=== PATIENT | male | born 1960 | race Caucasian/White ===

== ENCOUNTER 2019-11-29 13:40 | Emergency (ER) | payer OTHER, SELFPAY ==
[2019-11-29 13:45] VITALS: BP 135/86; PULSE 100; RESP 18; TEMP 37.1; O2SAT 95; BMI 37.5
--- NOTE | 2019-11-29 13:53 | XRR_ITS ---
PROCEDURE INFORMATION: Exam: XR Chest, 2 Views Exam date and time: 11/29/2019 2:52 PM Age: 59 years old Clinical indication: Cough; Prior surgery; Surgery type: Gallbladder TECHNIQUE: Imaging protocol: XR of the chest Views: 2 views. COMPARISON: CR Chest 1 [place] [id number] 08/08/2017 7:27 PM FINDINGS: Lungs: There is no pulmonary vascular congestion. There is no evidence of focal parenchymal consolidation. Pleural space: There are no pleural effusions. There is no evidence of pneumothorax. Heart/Mediastinum: The cardiac silhouette is within normal limits. Bones/joints: No acute osseous abnormality is identified. XR/XR chest 2V* [id number] IMPRESSION: No acute cardiopulmonary disease identified.
--- NOTE | 2019-11-29 13:56 | W.ED.GENADLT ---
HPI - General Adult General: Chief complaint: General Medical Stated complaint: told sinus inf mon/got worse since Time Seen by Provider: 11/29/19 13:44 Source: patient Mode of arrival: ambulatory Limitations: no limitations History of Present Illness: HPI narrative: 59-year-old male who states he has had a cough along with wheezing and sinus drainage and body aches over the last week that is gotten worse the last 2 days. Patient states he saw his PCP 2 days ago and started on amoxicillin for sinus infection. He states he does not feel any better. He has had no fevers. He does not smoke and has no history of COPD but does have wheezing here. Denies any vomiting or diarrhea. Associated symptoms: Deny chest pain, headache(s), nausea, rash or vomiting Review of Systems Const: Reports: chills and body aches; Denies: fever(s) Eyes: Denies: blurry vision or eye discomfort ENMT: Reports: nasal congestion Card: Denies: chest pain Resp: Reports: non-productive cough and wheezing GI: Denies: abdominal pain, nausea, vomiting or diarrhea : Denies: dysuria Musc: Denies: neck pain or back pain Skin/Breast: Denies: rash Neuro: Denies: headache(s) Psych: Denies: depression Owen/Lymph: Denies: easy bruising All/Imm: Denies: urticaria Physical Exam Const: COMMON NORMALS: no acute distress, patient oriented x3 and healthy appearing HENMT: COMMON NORMALS: normocephalic and atraumatic HEAD & SCALP: normocephalic and atraumatic Eye: COMMON NORMALS: Equal, round and reactive pupils present and EOMs intact bilaterally PUPIL: Yes Equal, round and reactive pupils present Neck/C-Spine: COMMON NORMALS: full ROM and supple Chest: COMMONS NORMALS: normal inspection of the chest and normal palpation of entire chest wall Resp: COMMON NORMALS: normal respiratory effort, No retractions, No use of accessory muscles and clear to auscultation bilaterally AUSCULTATION: clear to auscultation bilaterally and wheezes Cardio: COMMON NORMALS: regular rate, regular rhythm and No murmurs present (Cardio) RATE: regular rate RHYTHM: regular rhythm GI: COMMON NORMALS: Normal to inspection, nondistended, normoactive bowel sounds present, Soft to palpation, non-tender and no masses PALPATION: Yes Soft to palpation Extremity: COMMON NORMALS: normal to inspection and full ROM Neuro: COMMON NORMALS: patient oriented x3, moves all extremities and no focal motor deficits Psych: COMMON NORMALS: mental status grossly normal, Normal thought process present and cooperative THOUGHT PROCESS: Normal thought process present Skin: COMMON NORMALS: no rashes or lesions noted and no wounds GENERAL SKIN EXAM: no rashes or lesions noted Course Vital Signs: Vital signs: Vital Signs Temperature 98.7 F 11/29/19 13:45 Pulse Rate 105 H 11/29/19 15:10 Respiratory Rate 18 11/29/19 15:10 Blood Pressure 135/86 11/29/19 13:45 Pulse Oximetry 92 11/29/19 15:10 MDM - General Adult MDM Narrative: Medical decision making narrative: 59-year-old male who presents here with bronchitis. His wheezing improved after albuterol. Patient's x-ray showed no pneumonia his lab work here is normal. Patient is not requiring any oxygen. We will start him on albuterol along with steroids and he is to continue his Amoxil. Will test for coronavirus as well. Patient is to quarantine until results. He is return if worsening. He has no signs of cardiac cause or pulmonary embolism. Lab Data: Labs: Lab Results 11/29/19 11/29/19 Range/Units 14:18 14:18 WBC 13.0 H (4.0-10.0) 10^3/ uL RBC 5.81 H (4.1-5.3) 10^6/u L Hgb 16.6 (11.7-16.6) g/dL Hct 51.7 (42.0-52.0) % MCV 89.0 (80-94) fL MCH 28.6 (28.0-34.0) pg MCHC 32.1 (30.0-36.0) g/dL RDW 13.1 (12.1-15.1) % Plt Count 329 (130-400) 10^3/c mm MPV 10.7 H (7.4-10.4) fL Neut % (Auto) 83.3 % Lymph % (Auto) 9.1 % Dukes % (Auto) 4.8 % Eos % (Auto) 1.7 % Baso % (Auto) 0.5 % Neut # (Auto) 10.87 H (1.8-7.7) 10^3/u L Lymph # (Auto) 1.2 (0.8-4.8) 10^3/u L Dukes # (Auto) 0.6 (0.2-0.9) 10^3/u L Eos # (Auto) 0.2 (0.0-0.8) 10^3/u L Baso # (Auto) 0.1 (0.0-0.1) 10^3/u L Nucleated RBC % (a uto) 0 % Nucleated RBCs # 0.0 /100WBC Sodium 131 L (136-145) mmol/L Potassium 4.4 (3.5-5.1) mmol/L Chloride 98 (98-107) mmol/L Carbon Dioxide 22 (22-29) mmol/L Anion Gap 15.4 (5-19) BUN 26 H (8-23) mg/dL Creatinine 1.4 H (0.7-1.2) mg/dL GFR Calculation 51.5 L (90-130) mL/min Glucose 264 H (65-115) mg/dL Calculated Osmolal ity 278 L (285-295) mOsm/k g Calcium 9.5 (8.5-10.5) mg/dL Total Bilirubin 0.5 (0.15-1.2) mg/dL AST 15 (0-40) U/L ALT 18 (0-41) U/L Alkaline Phosphata se 123 (40-130) IU/L Total Protein 7.5 (6.6-8.7) g/dL Albumin 3.7 (3.5-5.2) g/dL Globulin 3.8 (1.3-4.6) g/dL Imaging Data^: CXR: Attestation: I personally reviewed and interpreted this imaging study as follows: My impression: no acute abnormality Discharge Plan Discharge Patient Disposition: Home Clinical Impression: Bronchitis Condition: Stable Prescriptions: New prednisone 50 mg tablet 50 mg PO DAILY Qty: 5 RF: 0 Discharge Orders: Discharge Order (Routine); Ordered 11/29/19 Ordered By: Madhuri Yancey Referrals: Meggan Carey FNP [Primary Care Provider] - 1-3 days Discharge Diet: Advance as tolerated Discharge Activity: Resume usual activity Patient Instructions: Acute Bronchitis (ED) Coding Level of Care Code ED [employer] for Chg Fwd Exam Comprehensive
[2019-11-29 14:24] LABS: Basophils # 0.1 10^3/uL (0.0-0.1); Basophils % 0.5 %; Eosinophils # 0.2 10^3/uL (0.0-0.8); Eosinophils % 1.7 %; Hematocrit 51.7 % (42.0-52.0); Hemoglobin 16.6 g/dL (11.7-16.6); Lymphocytes # 1.2 10^3/uL (0.8-4.8); Lymphocytes % 9.1 %; Mean Corpuscular HGB Conc 32.1 g/dL (30.0-36.0); Mean Corpuscular Hemoglobin 28.6 pg (28.0-34.0); Mean Platelet Volume 10.7 fL (7.4-10.4); Monocytes # 0.6 10^3/uL (0.2-0.9); Monocytes % 4.8 %; Neutrophils # 10.87 10^3/uL (1.8-7.7); Neutrophils % 83.3 %; Nucleated Red Blood Cells % 0 %; Platelet Count 329 10^3/cmm (130-400); Red Blood Count 5.81 10^6/uL (4.1-5.3); Red Cell Distribution Width 13.1 % (12.1-15.1)
[2019-11-29 14:44] LABS: Alanine Aminotransferase 18 U/L (0-41); Albumin Level 3.7 g/dL (3.5-5.2); Alkaline Phosphatase 123 IU/L (40-130); Anion Gap 15.4 (5-19); Aspartate Amino Transferase 15 U/L (0-40); Blood Urea Nitrogen 26 mg/dL (8-23); Calcium 9.5 mg/dL (8.5-10.5); Carbon Dioxide 22 mmol/L (22-29); Chloride 98 mmol/L (98-107); Globulin 3.8 g/dL (1.3-4.6); Glomerular Filtration Rate 51.5 mL/min (90-130); Glucose 264 mg/dL (65-115); Osmolality Calculated 278 mOsm/kg (285-295); Potassium 4.4 mmol/L (3.5-5.1); Sodium 131 mmol/L (136-145); Total Bilirubin 0.5 mg/dL (0.15-1.2); Total Protein 7.5 g/dL (6.6-8.7)
[2019-11-29] MEDS: sodium chloride 0.9% 1,000 ML 999 ML IV (14:55)
[2019-11-29 15:10] VITALS: PULSE 105; RESP 18; O2SAT 92
[2019-11-29 16:20] VITALS: BP 148/89; PULSE 74; RESP 17; O2SAT 98
[2019-11-29 16:21] VITALS: BP 148/89; PULSE 74; RESP 17; O2SAT 98
--- NOTE | 2019-11-30 15:28 | PC.NURSE ---
QUEST CALLED WITH POSITIVE COVID RESULT ATTEMPTED TO CALL PT NO ANSWER AND UNABLE TO LEAVE MESSAGE WILL CALL AGAIN LATER
[2019-11-30 15:39] LABS: Quest SARS-CoV-2 RNA DETECTED (NOT DETECTED)
== END 2019-11-29 16:24 | disposition home or self-care (01) ==
PROVIDERS: Emergency Provider Emergency Medicine; PCP Nurse Practitioner
DX: J40 Bronchitis, not specified as acute or chronic (principal); U07.1 COVID-19
CPT/HCPCS: 12345; 36415; 71046; 80053; 85025; 87635; 94640; 96361; 96374; 96375; 99282; 99284; J2930; J3535; J7030

== ENCOUNTER → 2019-12-17 09:26 | Outpatient (BNVA) | payer OTHER, SELFPAY | PROVIDERS: PCP Nurse Practitioner; Visit Provider Nurse Practitioner Family | DX: U07.1 COVID-19 (principal); R06.02 Shortness of breath | CPT/HCPCS: 71046; 80053; 83036; 85025 ==

== ENCOUNTER 2020-04-21 10:10 | Outpatient (CLI) | payer OTHER, SELFPAY ==
[2020-04-21 11:17] LABS: Chol HDL Ratio 5.11 mg/dL (1.0-5.00); Cholesterol 194 mg/dL (0-200); HDL Cholesterol 38 mg/dL (60-100); LDL Cholesterol Calculated 115 mg/dL (50-129); LDL HDL Ratio 3.03 RATIO (0.00-3.22); Thyroid Stimulating Hormone 4.18 uIU/mL (0.27-4.20); Triglycerides 207 mg/dL (0-150); Vitamin B12 684 pg/mL (232-1245)
[2020-04-21 12:22] LABS: Estmated Average Glucose 237; Hemoglobin A1C 9.9 % (4.0-6.0)
[2020-04-21 14:47] LABS: Free T4 Free Thyroxine 1.16 ng/dL (0.82-1.77)
== END 2020-04-21 10:11 | disposition home or self-care (01) ==
PROVIDERS: PCP Nurse Practitioner; Visit Provider Internal Medicine
DX: E03.9 Hypothyroidism, unspecified (principal); E04.1 Nontoxic single thyroid nodule; E11.40 Type 2 diabetes mellitus with diabetic neuropathy, unspecified; E11.65 Type 2 diabetes mellitus with hyperglycemia; E78.5 Hyperlipidemia, unspecified
CPT/HCPCS: 80061; 82607; 83036; 84439; 84443; 99204

== ENCOUNTER 2020-05-05 07:05 | Outpatient (CLI) | payer OTHER, SELFPAY ==
--- NOTE | 2020-05-05 07:15 | US_ITS ---
WS: [id number] ULTRASOUND THYROID TECHNIQUE: Ultrasound of the thyroid. CLINICAL INFORMATION: thyroid nodule COMPARISON: None. FINDINGS: Thyroid: Right and left thyroid lobes are normal in size and echotexture. Small focus of shadowing ca lcification left mid thyroid. Solid ovoid nodule right thyroid measuring 10 x 10 x 9 mm. Right thyroid lobe: 4.5 cm x 1.6 cm x 1.6 cm Left thyroid lobe: 3.4 cm x 1.7 cm x 1.7 cm. Isthmus: 0.2 mm. Cervical lymphadenopathy: None. US/US thyroid [id number] IMPRESSION: 1. Solid ovoid nodule right thyroid measuring 10 x 10 x 9 mm. This can be furt her evaluated with FNA versus 12 month follow-up. 2. Small focus of shadowing calcification left thyroid. No other left thyroid nodules.
== END 2020-05-05 07:06 | disposition home or self-care (01) ==
LOC: US 07:06
PROVIDERS: PCP Nurse Practitioner Family; Visit Provider Internal Medicine
DX: E04.1 Nontoxic single thyroid nodule (principal)
CPT/HCPCS: 76536

== ENCOUNTER → 2021-03-02 13:40 | Outpatient (BNVA) | payer OTHER, SELFPAY | PROVIDERS: PCP Nurse Practitioner Family; Visit Provider Internal Medicine | DX: E11.40 Type 2 diabetes mellitus with diabetic neuropathy, unspecified (principal); E11.65 Type 2 diabetes mellitus with hyperglycemia; E04.1 Nontoxic single thyroid nodule; E78.5 Hyperlipidemia, unspecified; E03.9 Hypothyroidism, unspecified; Z79.4 Long term (current) use of insulin | CPT/HCPCS: 99214 ==

== ENCOUNTER → 2021-10-15 12:46 | Outpatient (BNVA) | payer OTHER, SELFPAY | PROVIDERS: PCP Nurse Practitioner Family; Visit Provider Clinical Nurse Specialist Adult Health | DX: E11.8 Type 2 diabetes mellitus with unspecified complications (principal); E78.5 Hyperlipidemia, unspecified; E03.9 Hypothyroidism, unspecified; M10.9 Gout, unspecified; M54.9 Dorsalgia, unspecified | CPT/HCPCS: 80053; 80061; 81000; 83036; 84443; 84550; 85025 ==

== ENCOUNTER → 2021-10-21 18:04 | Outpatient (BNVA) | payer OTHER, SELFPAY | PROVIDERS: PCP Nurse Practitioner Family; Visit Provider Family Medicine | DX: M25.522 Pain in left elbow (principal); W19.XXXA Unspecified fall, initial encounter; L03.114 Cellulitis of left upper limb | CPT/HCPCS: 73070 ==

== ENCOUNTER 2021-12-17 06:41 | Outpatient (CLI) | payer OTHER, SELFPAY ==
--- NOTE | 2021-12-17 07:15 | US_ITS ---
WS: [id number] ULTRASOUND THYROID TECHNIQUE: Ultrasound of the thyroid. CLINICAL INFORMATION: thyroid nodule COMPARISON: May 05, 2020 FINDINGS: Thyroid: Right and left thyroid lobes are normal in size and echotexture. No significant changes toda y in the previously described nodules. Right thyroid lobe: 4.1 cm x 1.8 cm x 2.0 cm Left thyroid lobe: 4.3 cm x 1.7 cm x 1.9 cm. Isthmus: 0.5 mm. Cervical lymphadenopathy: None. US/US thyroid [id number] IMPRESSION: 1. Stable RIGHT solid isoechoic inferior thyroid nodule with hypoechoic rim me asuring 1.1 x 1.0 x 1.0 cm. This is unchanged from previous. Recommend 12 month follow-up versus FNA. 2. Shadowing peripherally calcified nodule mid to inferior thyroid just above the above-described nodule measuring 1.2 x 0.8 x 0.8 cm not well seen previousl y due to shadowing but appears stable. 3. 2 tiny foci of shadowing calcification LEFT thyroid are stable.
== END 2021-12-17 06:42 | disposition home or self-care (01) ==
PROVIDERS: PCP Clinical Nurse Specialist Adult Health; Visit Provider Internal Medicine
DX: E04.1 Nontoxic single thyroid nodule (principal)
CPT/HCPCS: 76536; 84154

== ENCOUNTER → 2022-04-08 10:38 | Outpatient (BNVA) | payer OTHER, SELFPAY | PROVIDERS: PCP Clinical Nurse Specialist Adult Health; Visit Provider Clinical Nurse Specialist Adult Health | DX: E11.40 Type 2 diabetes mellitus with diabetic neuropathy, unspecified (principal); E11.65 Type 2 diabetes mellitus with hyperglycemia; E04.1 Nontoxic single thyroid nodule; E78.5 Hyperlipidemia, unspecified | CPT/HCPCS: 80053; 80061; 83036; 84439; 84443 ==

== ENCOUNTER → 2022-11-11 08:45 | Outpatient (BNVA) | payer OTHER, SELFPAY | PROVIDERS: PCP Clinical Nurse Specialist Adult Health; Visit Provider Clinical Nurse Specialist Adult Health | DX: I10 Essential (primary) hypertension (principal); F32.A Depression, unspecified; G47.33 Obstructive sleep apnea (adult) (pediatric); E11.40 Type 2 diabetes mellitus with diabetic neuropathy, unspecified; E11.65 Type 2 diabetes mellitus with hyperglycemia; E03.9 Hypothyroidism, unspecified; E78.5 Hyperlipidemia, unspecified; M10.9 Gout, unspecified; E04.1 Nontoxic single thyroid nodule; E11.22 Type 2 diabetes mellitus with diabetic chronic kidney disease; N18.30 Chronic kidney disease, stage 3 unspecified; R53.83 Other fatigue | CPT/HCPCS: 80053; 80061; 82043; 83036; 84439; 84443; 84480; 84550 ==

== ENCOUNTER → 2023-02-27 08:06 | Outpatient (BNVA) | payer OTHER, SELFPAY | PROVIDERS: PCP Clinical Nurse Specialist Adult Health; Visit Provider Clinical Nurse Specialist Adult Health | DX: E03.9 Hypothyroidism, unspecified (principal); E11.40 Type 2 diabetes mellitus with diabetic neuropathy, unspecified; E11.65 Type 2 diabetes mellitus with hyperglycemia | CPT/HCPCS: 80053; 80061; 82043; 83036; 84439; 84443 ==

== ENCOUNTER → 2023-06-21 07:29 | Outpatient (BNVA) | payer OTHER, SELFPAY | PROVIDERS: PCP Clinical Nurse Specialist Adult Health; Visit Provider Clinical Nurse Specialist Adult Health | DX: E78.5 Hyperlipidemia, unspecified; E11.40 Type 2 diabetes mellitus with diabetic neuropathy, unspecified; E11.65 Type 2 diabetes mellitus with hyperglycemia; E03.9 Hypothyroidism, unspecified; E04.1 Nontoxic single thyroid nodule; R53.83 Other fatigue | CPT/HCPCS: 80053; 80061; 82043; 82306; 83036; 84439; 84443; 84550; 85025 ==

== ENCOUNTER → 2023-12-04 10:15 | Outpatient (BNVA) | payer SELFPAY | PROVIDERS: PCP Clinical Nurse Specialist Adult Health; Visit Provider Clinical Nurse Specialist Adult Health | DX: E55.9 Vitamin D deficiency, unspecified (principal); E11.65 Type 2 diabetes mellitus with hyperglycemia; E11.40 Type 2 diabetes mellitus with diabetic neuropathy, unspecified; Z12.5 Encounter for screening for malignant neoplasm of prostate; E04.1 Nontoxic single thyroid nodule; E03.9 Hypothyroidism, unspecified; E78.5 Hyperlipidemia, unspecified | CPT/HCPCS: 80053; 80061; 82043; 82306; 83036; 83690; 84439; 84443; G0103 ==

== ENCOUNTER → 2023-12-06 08:34 | Outpatient (BNVA) | payer MEDICARE, SELFPAY | PROVIDERS: PCP Clinical Nurse Specialist Adult Health; Visit Provider Internal Medicine | DX: E11.22 Type 2 diabetes mellitus with diabetic chronic kidney disease (principal); N18.30 Chronic kidney disease, stage 3 unspecified; E11.40 Type 2 diabetes mellitus with diabetic neuropathy, unspecified; E11.65 Type 2 diabetes mellitus with hyperglycemia; E04.1 Nontoxic single thyroid nodule; E78.5 Hyperlipidemia, unspecified; E03.9 Hypothyroidism, unspecified; I10 Essential (primary) hypertension; Z79.890 Hormone replacement therapy; Z79.4 Long term (current) use of insulin; Z79.85 Long-term (current) use of injectable non-insulin antidiabetic drugs; Z79.84 Long term (current) use of oral hypoglycemic drugs | CPT/HCPCS: 99214 ==

== ENCOUNTER → 2023-12-12 13:19 | Outpatient (BNVA) | payer MEDICARE, SELFPAY | PROVIDERS: PCP Clinical Nurse Specialist Adult Health; Referring Provider Clinical Nurse Specialist Adult Health; Visit Provider Student in an Organized Health Care Education/Training Program | DX: Z12.11 Encounter for screening for malignant neoplasm of colon (principal) | CPT/HCPCS: 99024; 99203 ==

== ENCOUNTER 2023-12-26 05:50 | Day surgery (SDC) | payer MEDICARE, SELFPAY ==
[2023-12-26 06:08] VITALS: BP 162/104; PULSE 88; RESP 16; TEMP 36.2; O2SAT 96; BMI 35.1
[2023-12-26] MEDS: sodium chloride 0.9% 1,000 ML 30 ML IV (06:17)
[2023-12-26 06:20] LABS: Glucose Point of Care 194 mg/dL (70-110)
--- NOTE | 2023-12-26 06:39 | ANES.PREANE2 ---
Pre-Anesthetic Assessment Height/Weight: Height 1.91 m Weight 127.459 kg Temp Pulse Resp BP Pulse Ox O2 Del Method 97.1 F L 88 16 162/104 96 Room Air 12/26/23 06:08 12/26/23 06:08 12/26/23 06:08 12/26/23 06:08 12/26/23 06:08 12/26/23 06:08 Preop Diagnosis: screening Operation Date: 12/26/23 07:00 Proposed Procedures p Colonoscopy 63791, G0105, Z12.11(Not Applicable) - Ramon Curran MD Familial anesthetic complications: none Was Beta Kike taken within 24 hours: N/A Last intake: Intake Last Liquid Date 12/25/23 Last Liquid Time 22:00 Last Solid Date 12/25/23 Last Solid Time 09:00 Social No alcohol and No tobacco Exam alert, oriented x 3, clear to auscultation bilaterally and regular rate & rhythm Airway Submandibular: within normal limits Cervical ROM: within normal limits Mallampati: Class II Dentition: false (removed) Pulmonary Sleep Apnea (cpap non-compliant) CV/HEM Hypertension Chronic Renal Insufficiency (stage 3) Hepatic None reported GI None reported Metabolic Diabetes Mellitus (A1C 7), Hyperlipidemia, Morbid Obesity and Thyroid Disease [facility] [place] None reported Neuropsych None reported Anesthetic Plan ASA status: 3 Anesthesia: MAC Medications/Allergies Home Medications Medication Instructions Recorded Confirmed Last Taken Type aspirin 81 mg tablet,delayed 81 mg PO DAILY 12/17/19 12/26/23 12/22/23 History release (Adult Aspirin Regimen) coenzyme Q10 75 mg capsule (Ultra 75 mg PO DAILY 12/17/19 12/26/23 12/22/23 History CoQ10) allopurinol 300 mg tablet 300 mg PO DAILY 04/21/20 12/26/23 12/22/23 History lactobacillus combination no.8 3 3,000 mmu cells PO DAILY 04/21/20 12/26/23 12/22/23 History billion cell capsule (Adult Probiotic) cholecalciferol (vitamin D3) 125 125 mcg PO DAILY 03/02/21 12/26/23 12/22/23 History mcg (5,000 unit) capsule loratadine 10 mg tablet (Allergy 10 mg PO DAILY 03/02/21 12/26/23 12/22/23 History Relief (loratadine)) pen needle, diabetic 31 gauge x #50 ea 11/16/21 12/12/23 Unknown Rx / flash glucose scanning reader #1 ea 12/21/21 12/12/23 Unknown Rx (FreeStyle Chandler 2 [place]) clotrimazole 1 % topical cream 1 applic topical BID 4 weeks #30 07/13/22 12/26/23 12/22/23 Rx grams amlodipine 5 mg tablet 5 mg PO DAILY #90 tabs 11/11/22 12/26/23 12/22/23 Rx escitalopram oxalate 10 mg tablet 10 mg PO DAILY #90 tabs 11/11/22 12/26/23 12/22/23 Rx olopatadine 0.2 % eye drops 1 drp ophthalmic (eye) DAILY PRN 02/27/23 12/26/23 12/22/23 Rx (Pataday Once Daily Relief) itching #2.5 mL allopurinol 100 mg tablet 200 mg PO DAILY 06/21/23 12/26/23 12/22/23 History vitamin B complex-folic acid 50 1 tab PO DAILY 06/21/23 12/26/23 12/22/23 History mcg tablet (Balanced B-50 Complex (with folic acid)) flash glucose sensor (FreeStyle #6 kits 10/13/23 12/12/23 Unknown Rx Chandler 2 Sensor kit) levothyroxine 100 mcg tablet 100 mcg PO DAILY #90 tabs 12/06/23 12/26/23 12/25/23 Rx atorvastatin 20 mg tablet 20 mg PO DAILY 12/21/23 12/26/23 12/22/23 History empagliflozin 25 mg tablet 25 mg PO DAILY 12/21/23 12/26/23 12/22/23 History (Jardiance) insulin glargine 100 unit/mL (3 40 unit SUBCUT QAM 12/21/23 12/21/23 12/18/23 History mL) subcutaneous pen (Lantus Solostar U-100 Insulin) semaglutide 2 mg/dose (8 mg/3 mL) 2 mg SUBCUT .WEEKLY 12/21/23 12/26/23 12/10/23 History subcutaneous pen injector (Ozempic) Allergies Allergy/AdvReac Type Severity Reaction Status Date / Time Iodinated Contrast Media Allergy ALGY-Difficulty Verified 12/21/23 08:06 Swallowing metformin Allergy pt states Verified 12/21/23 08:06 it feels like he has bugs crawling all over him Current Medications Generic Name Dose Route Start Last Admin Trade Name Stacia PRN Reason Stop Dose Admin Sodium Chloride 1,000 mls @ 30 mls/hr 12/26/23 06:00 12/26/23 06:17 Sodium Chloride 0.9% IV 30 mls/hr .Q24H BRIAN Administration PFSH Anesthesia Medical History Vitamin D deficiency Minor depression KIRS (obstructive sleep apnea) noncompliant with CPAP CKD stage 3 secondary to diabetes Hypertension Gout Whipple disease Thyroid nodule Uncontrolled type 2 diabetes with neuropathy Hyperlipidemia Diabetic neuropathy Hypothyroid Surgical History (Updated 12/12/23 @ 13:[address]) Hx of cholecystectomy Family History Mother Hypertension Father Hypertension Social History Smoking and tobacco/nicotine status: never used tobacco/nicotine Alcohol intake: current Alcohol intake frequency: holidays/special occasions only Alcohol type: beer and hard liquor Substance/Drug Use: never Data Anesthesia Cardiac Studies: No Data to Display
--- NOTE | 2023-12-26 06:53 | W.PM.OPSFHP ---
Same Day Surgery H&P Indication for Procedure/HPI DATE OF PROCEDURE: December 26, 2023 CHIEF COMPLAINT/INDICATIONFOR SURGICAL PROCEDURE: Screening colonoscopy PREOP DIAGNOSIS: screening PLANNED PROCEDURE: Operation Date: 12/26/23 07:00 Proposed Procedures p Colonoscopy 62272, G0105, Z12.11(Not Applicable) - Ramon Curran MD Medications/Allergies* Home Medications Medication Instructions Recorded Confirmed Type aspirin 81 mg tablet,delayed 81 mg PO DAILY 12/17/19 12/26/23 History release (Adult Aspirin Regimen) coenzyme Q10 75 mg capsule (Ultra 75 mg PO DAILY 12/17/19 12/26/23 History CoQ10) allopurinol 300 mg tablet 300 mg PO DAILY 04/21/20 12/26/23 History lactobacillus combination no.8 3 3,000 mmu cells PO DAILY 04/21/20 12/26/23 History billion cell capsule (Adult Probiotic) cholecalciferol (vitamin D3) 125 125 mcg PO DAILY 03/02/21 12/26/23 History mcg (5,000 unit) capsule loratadine 10 mg tablet (Allergy 10 mg PO DAILY 03/02/21 12/26/23 History Relief (loratadine)) allopurinol 100 mg tablet 200 mg PO DAILY 06/21/23 12/26/23 History vitamin B complex-folic acid 50 1 tab PO DAILY 06/21/23 12/26/23 History mcg tablet (Balanced B-50 Complex (with folic acid)) atorvastatin 20 mg tablet 20 mg PO DAILY 12/21/23 12/26/23 History empagliflozin 25 mg tablet 25 mg PO DAILY 12/21/23 12/26/23 History (Jardiance) insulin glargine 100 unit/mL (3 40 unit SUBCUT QAM 12/21/23 12/21/23 History mL) subcutaneous pen (Lantus Solostar U-100 Insulin) semaglutide 2 mg/dose (8 mg/3 mL) 2 mg SUBCUT .WEEKLY 12/21/23 12/26/23 History subcutaneous pen injector (Ozempic) Allergies/Adverse Reactions Allergy/AdvReac Type Severity Reaction Status Date / Time Iodinated Contrast Media Allergy ALGY-Difficulty Verified 12/21/23 08:06 Swallowing metformin Allergy pt states Verified 12/21/23 08:06 it feels like he has bugs crawling all over him Current Medications: Generic Name Dose Route Start Last Admin Trade Name Stacia PRN Reason Stop Dose Admin Sodium Chloride 1,000 mls @ 30 mls/hr 12/26/23 06:00 12/26/23 06:17 Sodium Chloride 0.9% IV 30 mls/hr .Q24H BRIAN Administration Pertinent History/Comorbid Conditions* Medical History (Updated 06/21/23 @ 07:30 by Louie Auguste NP) Vitamin D deficiency Minor depression KRIS (obstructive sleep apnea) noncompliant with CPAP CKD stage 3 secondary to diabetes Hypertension Gout Whipple disease Thyroid nodule Uncontrolled type 2 diabetes with neuropathy Hyperlipidemia Diabetic neuropathy Hypothyroid Surgical History (Updated 11/11/22 @ 07:34 by Louie Auguste NP) Hx of cholecystectomy Family History (Updated 04/21/20 @ 08:47 by Suzie Osullivan LPN) Father Hypertension Mother Father Social History Smoking and tobacco/nicotine status: never used tobacco/nicotine Alcohol intake: current Alcohol intake frequency: holidays/special occasions only Alcohol type: beer and hard liquor Substance/Drug Use: never Pertinent Exam Findings alert, oriented x 3 and regular rate & rhythm Abdomen soft, NT, ND Recommendations Surgery/Procedure today Other Plans: Proceed with colonoscopy today. Coding Level of Care Code Acute Code for Chg Fwd Time Spent (min) 30
[2023-12-26 07:28] VITALS: BP 119/74; PULSE 82; RESP 18; TEMP 36.6; O2SAT 96
[2023-12-26 07:39] VITALS: BP 125/80; PULSE 78; RESP 18; O2SAT 96
[2023-12-26 07:47] VITALS: BP 143/88; PULSE 75; RESP 18; O2SAT 95
--- NOTE | 2023-12-26 07:55 | ANE.PACU2 ---
Inpatient post-anesthesia follow up: Airway intact: Yes Vital signs: Temperature 97.8 F Pulse Rate 75 Respiratory Rate 18 Blood Pressure 143/88 Pulse Oximetry 95 Oxygen Delivery Me thod Room Air Oxygen Flow Rate Fraction of Inspir ed Oxygen Hydration adequate: Yes Nausea and vomiting: No Pain level: 1 Mental status: Baseline
== END 2023-12-26 07:57 | disposition home or self-care (01) ==
PROVIDERS: PCP Clinical Nurse Specialist Adult Health; Visit Provider Student in an Organized Health Care Education/Training Program
PROC: 0DJD8ZZ Inspection of Lower Intestinal Tract, Via Natural or Artificial Opening Endoscopic (ICD-10-PCS; CPT 45378; principal; 2023-12-26 07:00)
DX: Z12.11 Encounter for screening for malignant neoplasm of colon (principal); Z79.82 Long term (current) use of aspirin; Z79.4 Long term (current) use of insulin; G47.33 Obstructive sleep apnea (adult) (pediatric); E11.22 Type 2 diabetes mellitus with diabetic chronic kidney disease; I12.9 Hypertensive chronic kidney disease with stage 1 through stage 4 chronic kidney disease, or unspecified chronic kidney disease; N18.30 Chronic kidney disease, stage 3 unspecified; E11.40 Type 2 diabetes mellitus with diabetic neuropathy, unspecified; E78.5 Hyperlipidemia, unspecified; E03.9 Hypothyroidism, unspecified; Z91.199 Patient's noncompliance with other medical treatment and regimen due to unspecified reason; E66.01 Morbid (severe) obesity due to excess calories; Z68.35 Body mass index [BMI] 35.0-35.9, adult
CPT/HCPCS: 36416; 45380; 82962; G0121; J2704; J7030

== ENCOUNTER 2024-01-02 07:48 | Outpatient (CLI) | payer MEDICARE, SELFPAY ==
--- NOTE | 2024-01-02 08:15 | USR_ITS ---
PROCEDURE INFORMATION: Exam: US Soft Tissue Head and Neck, Thyroid Exam date and time: 01/02/2024 7:56 AM Age: 63 years old Clinical indication: Condition or disease; Thyroid disorder; Other: Nodule; Additional info: Thyroid nodule, include tirads TECHNIQUE: Imaging protocol: Real-time ultrasound scan of the neck with image documentation. Exam focused on the thyroid. COMPARISON: US thyroid [id number] 12/17/2021 6:57 AM FINDINGS: Right thyroid lobe: Right lobe of the thyroid measures 4.3 x 1.5 x 2.3 cm. Isoechoic round nodule (TIRADS 3) is identified in the inferior right thyroid, measuring 1.0 x 1.1 x 1.0 cm. Nodule appears solid, wider than tall, ill-defined borders. No echogenic foci. Hypoechoic solid nodule (TIRADS 4) is identified in the mid right thyroid, measuring 1.0 x 0.9 x 1.3 cm. Nodule demonstrates wider than tall morphology and ill-defined margins. No echogenic foci. Left thyroid lobe: Left thyroid lobe measures 4.9 x 1.4 x 1.2 cm. Isthmus: Isthmus measures 0.3 cm. US/US thyroid [id number] IMPRESSION: 1. TI-RADS 4 lesion of the mid right thyroid lobe which reaches size criteria for follow-up in 1 year (does not reach size criteria for fine-needle aspiration at this point in time). 2. TI-RADS 3 lesion of the inferior right thyroid lobe which does not reach criteria for follow-up or fine-needle aspiration on this examination. Attention on recommended yearly follow-up. 3. Remainder of the examination is unremarkable.
== END 2024-01-02 07:49 | disposition home or self-care (01) ==
LOC: RAD 07:48
PROVIDERS: PCP Clinical Nurse Specialist Adult Health; Visit Provider Internal Medicine
DX: E04.1 Nontoxic single thyroid nodule (principal); E03.9 Hypothyroidism, unspecified
CPT/HCPCS: 76536

== ENCOUNTER → 2024-01-08 14:11 | Outpatient (BNVA) | payer MEDICARE, SELFPAY | PROVIDERS: PCP Clinical Nurse Specialist Adult Health; Visit Provider Student in an Organized Health Care Education/Training Program | DX: Z09 Encounter for follow-up examination after completed treatment for conditions other than malignant neoplasm (principal) | CPT/HCPCS: 99203; 99213 ==

== ENCOUNTER → 2024-03-15 07:56 | Outpatient (BNVA) | payer MEDICARE, SELFPAY | PROVIDERS: PCP Clinical Nurse Specialist Adult Health; Visit Provider Clinical Nurse Specialist Adult Health | DX: E11.40 Type 2 diabetes mellitus with diabetic neuropathy, unspecified (principal); E11.65 Type 2 diabetes mellitus with hyperglycemia; E04.1 Nontoxic single thyroid nodule; E78.5 Hyperlipidemia, unspecified; E03.9 Hypothyroidism, unspecified; I10 Essential (primary) hypertension; E11.22 Type 2 diabetes mellitus with diabetic chronic kidney disease | CPT/HCPCS: 80053; 80061; 82043; 83036; 84439; 84443 ==

== ENCOUNTER → 2024-03-25 07:57 | Outpatient (BNVA) | payer MEDICARE, SELFPAY | PROVIDERS: PCP Clinical Nurse Specialist Adult Health; Visit Provider Internal Medicine | DX: E11.22 Type 2 diabetes mellitus with diabetic chronic kidney disease (principal); N18.30 Chronic kidney disease, stage 3 unspecified; E11.40 Type 2 diabetes mellitus with diabetic neuropathy, unspecified; E11.65 Type 2 diabetes mellitus with hyperglycemia; E78.5 Hyperlipidemia, unspecified; E03.9 Hypothyroidism, unspecified; E04.1 Nontoxic single thyroid nodule; G47.33 Obstructive sleep apnea (adult) (pediatric); R53.83 Other fatigue; Z79.890 Hormone replacement therapy; Z79.85 Long-term (current) use of injectable non-insulin antidiabetic drugs; Z79.4 Long term (current) use of insulin | CPT/HCPCS: 99214 ==

== ENCOUNTER → 2024-06-13 13:10 | Outpatient (BNVA) | payer MEDICARE, SELFPAY | PROVIDERS: PCP Family Medicine; Visit Provider Nurse Practitioner Family | DX: Z51.81 Encounter for therapeutic drug level monitoring (principal); E11.40 Type 2 diabetes mellitus with diabetic neuropathy, unspecified; E11.65 Type 2 diabetes mellitus with hyperglycemia; E78.5 Hyperlipidemia, unspecified; E03.9 Hypothyroidism, unspecified; E04.1 Nontoxic single thyroid nodule; I10 Essential (primary) hypertension; N18.30 Chronic kidney disease, stage 3 unspecified | CPT/HCPCS: 80053; 80061; 82565; 83036; 84439; 84443 ==

== ENCOUNTER → 2024-06-24 10:00 | Outpatient (BNVA) | payer MEDICARE, SELFPAY | PROVIDERS: PCP Family Medicine; Referring Provider Physician Assistant; Visit Provider Family Medicine | DX: E11.40 Type 2 diabetes mellitus with diabetic neuropathy, unspecified (principal); E11.65 Type 2 diabetes mellitus with hyperglycemia; E11.22 Type 2 diabetes mellitus with diabetic chronic kidney disease; N18.30 Chronic kidney disease, stage 3 unspecified; M10.9 Gout, unspecified | CPT/HCPCS: 80076; 82043; 84550 ==

== ENCOUNTER → 2024-06-28 11:48 | Outpatient (BNVA) | payer MEDICARE, SELFPAY | PROVIDERS: PCP Family Medicine; Referring Provider Internal Medicine; Visit Provider Internal Medicine | DX: E11.22 Type 2 diabetes mellitus with diabetic chronic kidney disease (principal); N18.30 Chronic kidney disease, stage 3 unspecified; E11.40 Type 2 diabetes mellitus with diabetic neuropathy, unspecified; E11.65 Type 2 diabetes mellitus with hyperglycemia; E04.1 Nontoxic single thyroid nodule; E78.5 Hyperlipidemia, unspecified; E03.9 Hypothyroidism, unspecified; G47.33 Obstructive sleep apnea (adult) (pediatric); R53.83 Other fatigue; I10 Essential (primary) hypertension | CPT/HCPCS: 99214; J1200; J2919 ==

== ENCOUNTER 2024-07-08 19:55 | Inpatient (IN) | payer MEDICARE, SELFPAY ==
[2024-07-08] VITALS (9 sets, daily range): BP systolic 153–191; BP diastolic 88–101; PULSE 71–83; RESP 12–22; TEMP 36.9; O2SAT 93–98
--- NOTE | 2024-07-08 19:56 | ECG_ITS ---
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 Measurements Intervals [place] Rate: 74 P: 14 CO: 183 QRS: -68 QRSD: 152 T: 42 QT: 403 QTc: 448 Interpretive Statements SINUS RHYTHM WITH OCCASIONAL SUPRAVENTRICULAR PREMATURE COMPLEXES INTRAVENTRICULAR CONDUCTION DELAY [130+ ms QRS DURATION] Compared to ECG 08/08/2017 22:03:25 No significant changes Electronically Signed On 07-09-2024 19:22:12 CDT by Justin Cunningham M.D. [email or web address]
--- NOTE | 2024-07-08 20:06 | XRR_ITS ---
PROCEDURE INFORMATION: Exam: XR Chest Exam date and time: 07/08/2024 8:17 PM Age: 63 years old Clinical indication: Chest pressure and chest wall pain; Additional info: Chest pain TECHNIQUE: Imaging protocol: Radiologic exam of the chest. Views: 1 view. COMPARISON: CR XR chest 2V* [id number] 12/17/2019 9:38 AM FINDINGS: Lungs: Unremarkable. No consolidation. Pleural spaces: Unremarkable. No pleural effusion. No pneumothorax. Heart/Mediastinum: Unremarkable. No cardiomegaly. Bones/joints: Unremarkable. XR/XR chest 1V portable [id number] IMPRESSION: No acute findings.
--- NOTE | 2024-07-08 20:13 | W.ED.CHESTPA ---
HPI - Chest Pain General: Chief Complaint: Chest Pain Stated Complaint: chest pain Time Seen by Provider: 07/08/24 20:06 History of Present Illness: This is a 63-year-old man with a history of obstructive sleep apnea, chronic kidney disease, hypertension, gout, type 2 diabetes, hyperlipidemia and diabetic neuropathy who presents emergency room with chest pain. This been going on for some time. 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 His made him come in today. He says he has not been sleeping well at all lately. Related Data Home Medications ?Medication ?Instructions ?Recorded ?Confirmed aspirin 81 mg tablet,delayed 81 mg PO DAILY 12/17/19 06/27/24 release (Adult Aspirin Regimen) coenzyme Q10 75 mg capsule (Ultra 75 mg PO DAILY 12/17/19 06/27/24 CoQ10) allopurinol 300 mg tablet 300 mg PO DAILY 04/21/20 06/27/24 lactobacillus combination no.8 3 3,000 mmu cells PO DAILY 04/21/20 06/27/24 billion cell capsule (Adult Probiotic) cholecalciferol (vitamin D3) 125 125 mcg PO DAILY 03/02/21 06/27/24 mcg (5,000 unit) capsule loratadine 10 mg tablet (Allergy 10 mg PO DAILY 03/02/21 06/27/24 Relief (loratadine)) allopurinol 100 mg tablet 200 mg PO DAILY 06/21/23 06/27/24 vitamin B complex-folic acid 50 1 tab PO DAILY 06/21/23 06/27/24 mcg tablet (Balanced B-50 Complex (with folic acid)) Previous Rx's ?Medication ?Instructions ?Recorded pen needle, diabetic 31 gauge x #50 ea 11/16/2104/27 escitalopram oxalate 10 mg tablet 10 mg PO DAILY #90 tabs 11/11/22 olopatadine 0.2 % eye drops 1 drp ophthalmic (eye) DAILY PRN 02/27/23 (Pataday Once Daily Relief) itching #2.5 mL levothyroxine 100 mcg tablet 100 mcg PO DAILY #90 tabs 12/06/23 semaglutide 2 mg/dose (8 mg/3 mL) See Rx Instructions .Route 02/15/24 subcutaneous pen injector (Ozempic) .COMPLEX #9 mL atorvastatin 20 mg tablet 20 mg PO DAILY #90 tabs 03/28/24 amlodipine 5 mg tablet 5 mg PO DAILY #90 tabs 05/09/24 blood-glucose meter,continuous #1 ea 05/22/24 (Dexcom G7 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) blood-glucose sensor (Dexcom G7 #3 ea 05/22/24 Sensor device) enalapril maleate 5 mg tablet 5 mg PO DAILY #90 tabs 06/26/24 Allergies Allergy/AdvReac Type Severity Reaction Status Date / Time Iodinated Contrast Media Allergy ALGY-Difficulty Verified 07/08/24 20:01 Swallowing metformin Allergy pt states Verified 07/08/24 20:01 it feels like he has bugs crawling all over him PFSH ED PFSH: Medical History Vitamin D deficiency Minor depression KRIS (obstructive sleep apnea) noncompliant with CPAP CKD stage 3 secondary to diabetes Hypertension Gout Whipple disease Thyroid nodule Uncontrolled type 2 diabetes with neuropathy Hyperlipidemia Diabetic neuropathy Hypothyroid Surgical History Hx of cholecystectomy Family History Mother Hypertension Father Hypertension Social History Smoking and tobacco/nicotine status: never used tobacco/nicotine Alcohol intake: current Alcohol intake frequency: holidays/special occasions only Alcohol type: beer and hard liquor Substance/Drug Use: never Physical Exam Narrative: EXAM NARRATIVE: General: Alert, no acute distress. Skin: Warm, dry. Head: Normocephalic, atraumatic. Neck: Supple, trachea midline. Eye: Extraocular movements are intact. Ears, nose, mouth and throat: mucosa moist. Cardiovascular: Regular, Normal peripheral perfusion. 1-2+ pitting tibial edema. Respiratory: Lungs are clear to auscultation, respirations are non-labored, breath sounds are equal, Symmetrical chest wall expansion. Gastrointestinal: Soft, Nontender, Non distended Musculoskeletal: Normal ROM, no deformity. Neurological: Alert and oriented, No focal neurological deficit observed. Psychiatric: Cooperative, appropriate mood & affect. Course Vital Signs: Vital signs: Vital Signs Temperature 98.4 F 07/08/24 19:59 Pulse Rate 81 07/08/24 23:09 Respiratory Rate 22 H 07/08/24 23:09 Blood Pressure 191/91 07/08/24 23:09 Pulse Oximetry 93 07/08/24 23:09 Oxygen Delivery Me thod Room Air 07/08/24 19:59 MDM - Chest Pain Medical Decision Making Differential diagnosis for patient with chest pain includes but is not limited to and based on the above HPI, review of systems and physical exam: Pneumonia. unstable angina. angina. Acute coronary syndrome / OR. Pulmonary embolism. Costochondritis / musculoskeletal. Pleurisy. Pericarditis. Esophageal spasm. Pancreatis. Cholecystitis. Orders placed to evaluate differential diagnosis based on the above differential, HPI and physical exam EKG: Time 1955. Rate 74. Normal sinus rhythm with sinus dysrhythmia, No ST-T changes, normal IN & QRS intervals, This was reviewed and interpreted by myself the ER physician at 20 00 Repeat EKG: Time 2202. Rate 74. Normal sinus rhythm with sinus dysrhythmia, No ST-T changes, normal IN & QRS intervals, This was reviewed and interpreted by myself the ER physician at 7. No significant changes from EKG done previously in emergency room today. Chest x-ray: No acute process. No infiltrate. No pneumothorax. This was reviewed and interpreted by myself the emergency room physician. I also reviewed the radiology report. Lab Review: Laboratory results were reviewed and interpreted by myself the emergency room physician. No leukocytosis. No anemia. No renal failure. proBNP is mildly elevated. Troponin is mildly elevated but with no delta. I reviewed the patient's medical record. HEART Pathway for Early Discharge in Acute Chest Pain from [email or web address] on 07/08/2024 All calculations should be rechecked by clinician prior to use RESULT SUMMARY: 4 points HEART Pathway Score High risk 12-65% 30-day MACE Cardiology consultation and admission recommended. Further testing indicated. INPUTS: History ?> 1 = Moderately suspicious EKG ?> 0 = Normal Age ?> 1 = 45-64 Risk factors ?> 1 = 1-2 risk factors Initial troponin ?> 1 = 1-3x normal limit Reexamination: Patient remained stable. No increased work of breathing. No altered mental status. No focal motor deficits. Patient has remained fairly hypertensive throughout stay. Consultation: I spoke with Dr. Hernandez who is on-call for the hospitalist service who agrees to admission. Assessment and plan: Chest pain Accelerated hypertension Edema History of obesity, diabetes, hypertension and hyperlipidemia ?IV hydralazine for blood pressure. -I discussed the patient with the hospitalist on-call who is admitting the patient. - Discussed findings and plan with patient. Answered any questions. - All laboratory values were reviewed and interpreted personally by myself, the ER physician - All imaging was reviewed and interpreted personally by myself, the ER physician. - Evaluation and treatment of this problem were appropriate in the emergency setting Lab Data 07/08/24 20:12 07/08/24 20:12 Radiology Impressions Chest X-Ray 07/08/24 20:06 IMPRESSION: No acute findings. Laboratory Results WBC 7.04 10^3/uL (3.29-11.43) 07/08/24 20:12 RBC 4.81 10^6/uL (3.85-5.65) 07/08/24 20:12 Hgb 14.80 g/dL (11.27-16.99) 07/08/24 20:12 Hct 43.7 % (37-53) 07/08/24 20:12 MCV 90.9 fl (82-101) 07/08/24 20:12 MCH 30.8 pg (27-33) 07/08/24 20:12 MCHC 33.9 g/dL (30-55) 07/08/24 20:12 RDW 13.0 % (12.1-15.1) 07/08/24 20:12 Plt Count 287 10^3/cmm (157-399) 07/08/24 20:12 MPV 9.7 fL (7.4-10.4) 07/08/24 20:12 Neut % (Auto) 55.2 % 07/08/24 20:12 Lymph % (Auto) 30.7 % 07/08/24 20:12 [place] % (Auto) 8.8 % 07/08/24 20:12 Eos % (Auto) 4.0 % 07/08/24 20:12 Baso % (Auto) 1.0 % 07/08/24 20:12 Neut # (Auto) 3.89 10^3/uL (1.8-7.7) 07/08/24 20:12 Lymph # (Auto) 2.2 10^3/uL (0.8-4.8) 07/08/24 20:12 [place] # (Auto) 0.6 10^3/uL (0.2-0.9) 07/08/24 20:12 Eos # (Auto) 0.3 10^3/uL (0.0-0.8) 07/08/24 20:12 Baso # (Auto) 0.1 10^3/uL (0.0-0.1) 07/08/24 20:12 Nucleated RBC % (auto) 0 % 07/08/24 20:12 Nucleated RBCs # 0.0 /100WBC 07/08/24 20:12 D-Dimer 0.41 ug/mLFEU (0-0.59) 07/08/24 20:12 Sodium 141 mmol/L (136-145) 07/08/24 20:12 Potassium 4.3 mmol/L (3.5-5.1) 07/08/24 20:12 Chloride 105 mmol/L (98-107) 07/08/24 20:12 Carbon Dioxide 28 mmol/L (22-29) 07/08/24 20:12 Anion Gap 12.3 (5-19) 07/08/24 20:12 BUN 17 mg/dL (8-23) 07/08/24 20:12 Creatinine 1.1 mg/dL (0.7-1.2) 07/08/24 20:12 GFR Calculation 67.2 mL/min (90-130) L 07/08/24 20:12 Glucose 155 mg/dL (65-115) H 07/08/24 20:12 Calculated Osmolality 297 mOsm/kg (285-295) H 07/08/24 20:12 Calcium 9.2 mg/dL (8.5-10.5) 07/08/24 20:12 Total Bilirubin 0.4 mg/dL (0.15-1.2) 07/08/24 20:12 AST 17 U/L (0-40) 07/08/24 20:12 ALT 24 U/L (0-41) 07/08/24 20:12 Alkaline Phosphatase 113 U/L (40-130) 07/08/24 20:12 Troponin T Baseline 19 ng/L (0-15) H 07/08/24 20:12 Troponin T 120 Minute 17.78 ng/L (0-15) H 07/08/24 21:56 Delta Troponin T -1.22 ABS# (0-10) L 07/08/24 21:56 NT-Pro-B Natriuret Pep 249 pg/mL (0-125) H 07/08/24 20:12 Total Protein 6.3 g/dL (6.6-8.7) L 07/08/24 20:12 Albumin 3.7 g/dL (3.5-5.2) 07/08/24 20:12 Globulin 2.6 g/dL (1.3-4.6) 07/08/24 20:12 All radiology interpretation(s) finalized by discharge Discharge Plan Discharge Patient Disposition: Placed in Observation Clinical Impression: Chest pain, Accelerated hypertension, Edema Coding Level of Care Code ED Quality Assistant for Ben Reeder
[2024-07-08 20:19] LABS: Basophils # 0.1 10^3/uL (0.0-0.1); Eosinophils # 0.3 10^3/uL (0.0-0.8); Hematocrit 43.7 % (37-53); Lymphocytes # 2.2 10^3/uL (0.8-4.8); Lymphocytes % 30.7 %; Mean Corpuscular HGB Conc 33.9 g/dL (30-55); Mean Corpuscular Hemoglobin 30.8 pg (27-33); Mean Corpuscular Volume 90.9 fl (82-101); Mean Platelet Volume 9.7 fL (7.4-10.4); Monocytes # 0.6 10^3/uL (0.2-0.9); Monocytes % 8.8 %; Neutrophils # 3.89 10^3/uL (1.8-7.7); Neutrophils % 55.2 %; Nucleated Red Blood Cells % 0 %; Platelet Count 287 10^3/cmm (157-399); Red Blood Count 4.81 10^6/uL (3.85-5.65); White Blood Count 7.04 10^3/uL (3.29-11.43)
[2024-07-08 20:30] LABS: D Dimer 0.41 ug/mLFEU (0-0.59)
[2024-07-08 20:50] LABS: Alanine Aminotransferase 24 U/L (0-41); Albumin Level 3.7 g/dL (3.5-5.2); Alkaline Phosphatase 113 U/L (40-130); Anion Gap 12.3 (5-19); Aspartate Amino Transferase 17 U/L (0-40); Blood Urea Nitrogen 17 mg/dL (8-23); Calcium 9.2 mg/dL (8.5-10.5); Carbon Dioxide 28 mmol/L (22-29); Chloride 105 mmol/L (98-107); Globulin 2.6 g/dL (1.3-4.6); Glomerular Filtration Rate 67.2 mL/min (90-130); Glucose 155 mg/dL (65-115); NT Pro B Type Natriuretic Pept 249 pg/mL (0-125); Osmolality Calculated 297 mOsm/kg (285-295); Potassium 4.3 mmol/L (3.5-5.1); Sodium 141 mmol/L (136-145); Total Bilirubin 0.4 mg/dL (0.15-1.2); Total Protein 6.3 g/dL (6.6-8.7)
[2024-07-08 20:56] LABS: Troponin(5th) Baseline 19 ng/L (0-15)
--- NOTE | 2024-07-08 22:03 | ECG_ITS ---
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 Measurements Intervals [place] Rate: 74 P: -25 NH: 168 QRS: -34 QRSD: 165 T: 34 QT: 416 QTc: 463 Interpretive Statements SINUS RHYTHM WITH OCCASIONAL SUPRAVENTRICULAR PREMATURE COMPLEXES LEFT AXIS DEVIATION [QRS AXIS < -30] INTRAVENTRICULAR CONDUCTION DELAY [130+ ms QRS DURATION] INTERPRETATION BASED ON A DEFAULT AGE OF 40 YEARS Compared to ECG 07/08/2024 19:56:59 Left-axis deviation now present Electronically Signed On 07-09-2024 19:29:29 CDT by Justin Cunningham M.D. [email or web address] [id number]
[2024-07-08 22:39] LABS: Troponin 5 2HR 17.78 ng/L (0-15)
[2024-07-08 22:42] LABS: Troponin 5 2HR Delta -1.22 ABS# (0-10)
[2024-07-08] MEDS: hyDRALAzine 20 mg/mL INJ 1 mL 10 MG IVP (22:54)
--- NOTE | 2024-07-08 23:16 | PM.HP ---
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 Patient is stating that for last couple months he has been experiencing chest pain at rest which gets worse on exertion, no relieving factor, chest pain would last for few minutes, he is describing chest pain as pressure-like sensation substernally, today he started experiencing numbness in his left arm that concerned him and brought him to the hospital. Patient is not endorsing nausea vomiting diarrhea fever. Does not drink alcohol or smoke. Workup in the ER revealed CBC BMP unremarkable D-dimer unremarkable, troponin 19 and then 17 trending down EKG showing PVCs with incomplete right bundle branch block BNP 249 Patient has bilateral lower extremity edema No active chest pain at the time of my evaluation Review of Systems Eyes: Denies: change in vision ENMT: Denies: throat pain Card: Reports: chest pain and swelling of feet/ankles Resp: Reports: dyspnea GI: Denies: abdominal pain : Denies: flank pain Musc: Reports: back pain Medications/Allergies Home Medications ?Medication ?Instructions ?Recorded ?Confirmed ?Last Taken ?Type aspirin 81 mg tablet,delayed 81 mg PO DAILY 12/17/19 06/27/24 12/22/23 History release (Adult Aspirin Regimen) coenzyme Q10 75 mg capsule (Ultra 75 mg PO DAILY 12/17/19 06/27/24 12/22/23 History CoQ10) allopurinol 300 mg tablet 300 mg PO DAILY 04/21/20 06/27/24 12/22/23 History lactobacillus combination no.8 3 3,000 mmu cells PO DAILY 04/21/20 06/27/24 12/22/23 History billion cell capsule (Adult Probiotic) cholecalciferol (vitamin D3) 125 125 mcg PO DAILY 03/02/21 06/27/24 12/22/23 History mcg (5,000 unit) capsule loratadine 10 mg tablet (Allergy 10 mg PO DAILY 03/02/21 06/27/24 12/22/23 History Relief (loratadine)) pen needle, diabetic 31 gauge x #50 ea 11/16/21 06/27/24 Unknown Rx 1/4 escitalopram oxalate 10 mg tablet 10 mg PO DAILY #90 tabs 11/11/22 06/27/24 12/22/23 Rx olopatadine 0.2 % eye drops 1 drp ophthalmic (eye) DAILY PRN 02/27/23 06/27/24 12/22/23 Rx (Pataday Once Daily Relief) itching #2.5 mL allopurinol 100 mg tablet 200 mg PO DAILY 06/21/23 06/27/24 12/22/23 History vitamin B complex-folic acid 50 1 tab PO DAILY 06/21/23 06/27/24 12/22/23 History mcg tablet (Balanced B-50 Complex (with folic acid)) levothyroxine 100 mcg tablet 100 mcg PO DAILY #90 tabs 12/06/23 06/27/24 12/25/23 Rx semaglutide 2 mg/dose (8 mg/3 mL) See Rx Instructions .Route 02/15/24 06/27/24 Unknown Rx subcutaneous pen injector (Ozempic) .COMPLEX #9 mL atorvastatin 20 mg tablet 20 mg PO DAILY #90 tabs 03/28/24 06/27/24 Unknown Rx amlodipine 5 mg tablet 5 mg PO DAILY #90 tabs 05/09/24 06/27/24 Unknown Rx blood-glucose meter,continuous #1 ea 05/22/24 06/27/24 Unknown Rx (Dexcom G7 Conduit Reamer Operator) blood-glucose sensor (Dexcom G7 #3 ea 05/22/24 06/27/24 Unknown Rx Sensor device) enalapril maleate 5 mg tablet 5 mg PO DAILY #90 tabs 06/26/24 06/27/24 Unknown Rx Allergies Allergy/AdvReac Type Severity Reaction Status Date / Time Iodinated Contrast Media Allergy ALGY-Difficulty Verified 07/08/24 20:01 Swallowing metformin Allergy pt states Verified 07/08/24 20:01 it feels like he has bugs crawling all over him PFSH Acute PFSH: Medical History Vitamin D deficiency Minor depression KRIS (obstructive sleep apnea) noncompliant with CPAP CKD stage 3 secondary to diabetes Hypertension Gout Whipple disease Thyroid nodule Uncontrolled type 2 diabetes with neuropathy Hyperlipidemia Diabetic neuropathy Hypothyroid Surgical History Hx of cholecystectomy Family History Mother Hypertension Father Hypertension Social History Smoking and tobacco/nicotine status: never used tobacco/nicotine Alcohol intake: current Alcohol intake frequency: holidays/special occasions only Alcohol type: beer and hard liquor Substance/Drug Use: never Vitals/I&O/Wt Last Vital Signs Temp 98.4 F 07/08/24 19:59 Pulse 81 07/08/24 23:09 Resp 22 H 07/08/24 23:09 BP 191/91 07/08/24 23:09 Pulse Ox 93 07/08/24 23:09 O2 Del Method Room Air 07/08/24 19:59 Weight last 48 hrs Weight 127.006 kg Physical Exam Narrative: Clinical signs of fluid overload Lower extremity edema Awake and alert No active chest pain Currently on room air Hemodynamically stable GCS 15 Nonfocal neuroexam Morbidly obese No audible stridor or wheezing S1, S2 Hypertensive Laying supine Data 07/08/24 20:12 07/08/24 20:12 A&P Assessment and plan (1) Unstable angina: (2) Uncontrolled type 2 diabetes with neuropathy: (3) Abnormal EKG: (4) Hypertension: Qualifiers: Hypertension type: primary hypertension Qualified Code(s): I10 - Essential (primary) hypertension (5) CKD stage 3 secondary to diabetes: (6) Gout: (7) KRIS (obstructive sleep apnea): (8) Edema: (9) Fatigue: Plan Unstable angina Heart score 5 Multiple risk factor for coronary disease such as hypertension obesity diabetes No previous history of CA or CHF or coronary disease Will request echo and cardiac stress test in the morning D-dimer unremarkable Bilateral lower extremity edema Requested echo Concern for new onset CHF Start Lasix Patient is stating that he does not have any signs or symptoms of sleep apnea, 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 after midnight DVT prophylaxis: Heparin PDMP PDMP Reviewed: Not Reviewed Attestations Medical Necessity Statement*: Anticipating discharge within 24 to 48 hours Diagnoses Unstable angina I20.0 Uncontrolled type 2 diabetes with neuropathy E11.40; E11.65 Abnormal EKG R94.31 Primary hypertension I10 Hypertension type: primary hypertension CKD stage 3 secondary to diabetes E11.22; N18.30 Gout M10.9 KRIS (obstructive sleep apnea) G47.33 Edema R60.9 Fatigue R53.83
--- NOTE | 2024-07-08 23:20 | USCV_ITS ---
Janes Sharma Age: 63 Gender: M : 1960 Exam Date: 07/08/2024 23:58 Ordering Phys: Susy Hernandez MD Technologist: MIGUEL Exam Location: [facility] [place] Indication: UA chronic renal dz, HTN, gout, DM2, HL BP: 191 / 91 HR: 76 Rhythm: Sinus Technical Quality: Adequate with OPTISON MEASUREMENTS (Male / Female) Normal Values 2D ECHO LV Diastolic Diameter PLAX 4.6 cm 4.2 - 5.9 / 3.9 - 5.3 cm IVS Diastolic Thickness 1.4 cm 0.6 - 1.0 / 0.6 - 0.9 cm IVS Systolic Thickness 1.7 cm LVPW Diastolic Thickness 1.8 cm 0.6 - 1.0 / 0.6 - 0.9 cm LVPW Systolic Thickness 1.8 cm LVOT Diameter 2.4 cm LV Ejection Fraction 2D Teich 57.6 % LV Ejection Fraction MOD 4C 57.0 % LV Ejection Fraction MOD 2C 50.4 % LV Ejection Fraction 2C AL 49.1 % LA Diameter 4.4 cm Aorta at Sinotubular Diameter 3.2 cm IVC Diameter 2.7 cm M-MODE LA Ao Ratio MM 1.2 AV Cusp Separation MM 2.4 cm DOPPLER AV Peak Velocity 101.0 cm/s LVOT Peak Velocity 107.0 cm/s AV Area Cont Eq vti 3.6 cm squared AV Area Cont Eq pk 5.0 cm squared MV Peak Velocity 81.0 cm/s MV Area PHT 3.0 cm squared Mitral E to A Ratio 0.8 TR Peak Velocity 262.0 cm/s TR Peak Gradient 27.5 mmHg TV Peak E Velocity 42.0 cm/s PV Peak Velocity 88.0 cm/s RV Ejection Time 0.4 s FINDINGS Left Ventricle Normal left ventricular size and systolic function, EF 57%. Mild left ventricular hypertrophy. No regional wall motion abnormalities. Right Ventricle Normal right ventricular size and systolic function. Right Atrium The right atrium is normal in size. Left Atrium The left atrium is normal in size. Mitral Valve Thickened mitral valve. Aortic Valve Thickened aortic valve. Tricuspid Valve No gross abnormalities noted Pulmonic Valve Pulmonic valve not well visualized. Pericardium Normal pericardium without effusion. Aorta Normal ascending aorta dimension. IVC Inferior vena cava not visualized. CONCLUSIONS Normal left ventricular size and systolic function, EF 57%. Mild left ventricular hypertrophy. No regional wall motion abnormalities. (Echo contrast - Optison was used to delineate the endocardium and to estimate the LV ejection fraction) Possibly normal chamber sizes Mild left ventricular hypertrophy. There is no pericardial effusion. There are no intracardiac masses. Technically somewhat difficult study because of the poor ultrasonic window Dr Justin Cunningham MD [facility] (Electronically Signed) Final Date: 11 July 2024 12:47 S
--- NOTE | 2024-07-08 23:21 | ECG_ITS ---
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 Interpretive Statements LEXISCAN: Procedure: At the baseline, the blood pressure was 162/92 mmHg with a heart rate of 70 bpm. The electrocardiogram showed normal sinus rhythm, right bundle branch block with normal ST and T's. The Lexiscan was infused over a period of 20 seconds. A total of 0.4 mg of Lexiscan was infused. The stress phase was continued for a total of 5 minutes. Heart rate was at the end of stress phase was 76 bpm and a blood pressure of 136/90 mmHg. The EKG at the peak infusion revealed normal sinus rhythm with no significant ST-T wave changes. Sestamibi was injected 20 seconds after the Lexiscan infusion. Blood pressure at the end of recovery phase was 137/89 mmHg with a heart rate of 74 bpm. Conclusion: 1. Normal EKG response to Lexiscan infusion 2. No Lexiscan induced chest pain or cardiac arrhythmia. 3. Normal blood pressure and heart rate response. 4. Sestamibi/sestamibi perfusion scan pending; see separate report. Electronically Signed On 07-14-2024 01:29:18 CDT by Usman Holden M.D. [email or web address] [id number]
[2024-07-08] MEDS: enoxaparin 40 mg/0.4 mL Syringe SUBCUT (23:36)
[2024-07-09] VITALS (21 sets, daily range): BP systolic 137–190; BP diastolic 79–102; PULSE 70–91; RESP 15–23; TEMP 36.6–36.8; O2SAT 91–98; BMI 35.6
[2024-07-09] MEDS: ATORVASTATIN 10 MG TABLET 20 MG PO ×2 (01:04→21:33)
[2024-07-09] MEDS: metoprolol tartrate 25 mg Tablet PO ×2 (01:04→09:06)
[2024-07-09] MEDS: FUROsemide 10 mg/mL SDV 2mL 20 MG IVP (01:04)
[2024-07-09 02:30] LABS: Troponin 5 6HR 18.52 ng/L (0-15)
[2024-07-09 02:31] LABS: Magnesium 1.8 mg/dL (1.7-2.3); Troponin 5 6HR Delta -0.48 ng/L (0-12)
[2024-07-09 02:44] LABS: Anion Gap 12.6 (5-19); Blood Urea Nitrogen 16 mg/dL (8-23); Carbon Dioxide 27 mmol/L (22-29); Chloride 101 mmol/L (98-107); Glomerular Filtration Rate 60.8 mL/min (90-130); Glucose 144 mg/dL (65-115); Osmolality Calculated 288 mOsm/kg (285-295); Potassium 3.6 mmol/L (3.5-5.1); Sodium 137 mmol/L (136-145)
--- NOTE | 2024-07-09 05:00 | NMCV_ITS ---
NM vanessa perf SPECT r/s* [id number] Janes Sharma Age: 63 Gender: M : 1960 Exam Date: 07/09/2024 06:35 Ordering Phys: Susy Hernandez MD Technologist: ANDREA Segura Exam Location: [facility] Indications: cp STRESS TEST Please [facility] for [facility] IMAGE PROTOCOL Rest/Stress 1 Lexiscan Day Radiopharmaceutical Dose (mCi) Administration Site Administered by Rest: Tc-99m 10.7 IV Armando Johnson, ANDREA Sestamibi Stress:Tc-99m 33 IV ANDREA Khan Sestamibi Rest: 09-Jul-2024 60 Discovery 630 Stress: 09-Jul-2024 30 Discovery 630 0.4mg Lexiscan. Images obtained in supine and prone position. SPECT RESULTS Technical Quality: Good Raw Data Analysis: Normal Image Corrections: No attenuation or motion correction applied Summed Stress Score: 12 Summed Rest Score: 14 Summed Difference Score: 1 PERFUSION FINDINGS Moderate area of moderately decreased tracer uptake involving the mid and apical inferior, mid inferolateral, apical lateral, apical septal and LV apex. Slight reversibility was noted in the apical lateral segment. FUNCTIONAL RESULTS (calculated via Gated SPECT) Stress Image LV EF (%): 57 Stress EDV (mL):144 TID: 0.85 Stress ESV (mL):62 FUNCTIONAL FINDINGS: Segmental wall motion analysis revealing no gross wall motion abnormalities IMPRESSIONS 1. Myocardial perfusion imaging revealing moderate area of persistent decreased tracer uptake involving the inferior, inferolateral and apical regions with a small area of slight reversibility, suggesting myocardial scarring predominantly in the distribution of the right coronary artery with some involvement of the circumflex and left descending artery. Very small area of ischemia in the apical lateral region, suggestive Myocard scarring with a very small area of possible preinfarction ischemia. 2. Normal LV ejection fraction of 57%. 3. LV wall motion analysis revealing no gross wall motion abnormalities. 4. Mildly dilated LV cavity with end-systolic volume of 62 mL No similar previous studies are available for comparison Dr Justin Cunningham MD [facility] (Electronically Signed) Final Date: 09 July 2024 11:09 S
--- NOTE | 2024-07-09 05:43 | ECG_ITS ---
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 Measurements Intervals [place] Rate: 68 P: 18 ME: 194 QRS: 130 QRSD: 162 T: 21 QT: 424 QTc: 453 Interpretive Statements SINUS RHYTHM WITH OCCASIONAL SUPRAVENTRICULAR PREMATURE COMPLEXES INTRAVENTRICULAR CONDUCTION DELAY [130+ ms QRS DURATION] Compared to ECG 07/08/2024 22:03:51 Left-axis deviation no longer present Electronically Signed On 07-09-2024 19:29:01 CDT by Justin Cuninngham M.D. [email or web address] [id number]
[2024-07-09] MEDS: levothyroxine 100 mcg Tablet PO (06:05)
[2024-07-09] MEDS: perflutren protein-a microsphr 0.22 mg/mL SDV 3 mL IV (06:27)
[2024-07-09] MEDS: regadenoson 0.4 Mg/5 ml Syringe IVP (07:07)
--- NOTE | 2024-07-09 07:13 | PC.NURSE ---
PT at cardiac stress test at time of this nurse arrival, PT is still not present in ED at this time.
[2024-07-09] MEDS: aspirin 81 mg EC Tablet PO (09:06)
[2024-07-09] MEDS: allopurinol 300 mg Tablet PO (09:06)
[2024-07-09 09:56] LABS: Iron 46 ug/dL (59-158); Percent Saturation 20.5 % (20-50); Total Iron Binding Capacity 224 mcg/dl; Unsaturated Iron Binding 178 ug/dL (112-347)
[2024-07-09] MEDS: hyDRALAzine 20 mg/mL INJ 1 mL 10 MG IVP ×2 (09:57→13:43)
[2024-07-09 10:04] LABS: Glucose Point of Care 159 mg/dL (70-110)
--- NOTE | 2024-07-09 12:49 | PC.NURSE ---
Patients blood pressure elevated. Gave ordered PRNs see MAR. BP still elevated and voiced concerns. Notified Dr Gavin. Awaiting new orders.
--- NOTE | 2024-07-09 12:52 | P.CONIM_ITS ---
Providers/Reason For Consult 2 Consulting Physician/Specialty*: ALLY Cunningham MD/cardiology Reason for Consult*: Patient with chest pain and abnormal Myocardial perfusion imaging Requesting Physician: Dr. Gavin Attending Physician: Fercho Gavin MD Primary Care Provider: Evans Anderson DO History of Present Illness History of Present Illness Janes Sharma is a 63 year old male with a history of hypertension, type 2 diabetes and dyslipidemia, is admitted to hospital with complaints of chest pain. He had a Myocardial perfusion imaging today which he was found to be abnormal. Cardiology consult is requested for further cardiac evaluation recommendations. This patient has no previous history of coronary disease, myocardial infarction or congestive heart failure. For the last 2 months or so, he has been having episodes of chest pains both at rest and with exertion. The symptoms usually occurs at rest especially in the night, almost every night. Quite often the pain, moderate in intensity ,wakes him up from sleep. It may last for couple of minutes and then gradually subsides. He has no associated nausea ,vomiting or sweating. No palpitation or syncopal episode. Last night, the pain was more intense and also was radiating to the left arm. For this reason, he came to the hospital. He has no definite precipitating factors for the chest pain. No other associated symptoms or radiation of pain. He has been compliant with medications. His father had a myocardial infarction in his 50s and of the same.. Mother had coronary disease and had a permanent pacemaker. She in her 70s. No other relevant family history. History of smoking abuse, 1 pack a day for 30 years or so which he quit 2 years ago. No alcohol abuse or any substance abuse. Review of Systems 2 Narrative: CONSTITUTIONAL: No fever or chills. EYES: No blurring of vision or other visual disturbances lately. ENT: No hoarseness of voice, auditory disturbances or sore throat. CARDIOVASCULAR: As mentioned above. RESPIRATORY: No significant cough. GASTROINTESTINAL: No hematemesis or melena. GENITOURINARY: No dysuria or hematuria. INTEGUMENTARY: No skin rashes or history of skin cancer. NEURO: No transient ischemic attacks or amaurosis. PSYCHIATRIC: No history of psychosis or major depression. HEMATOLOGIC: No bleeding disorders or significant anemia. ENDOCRINE: No history of polyuria or polydipsia. MUSCULOSKELETAL: No recent joint pain or swelling. ALLERGY/IMMUNOLOGY: As mentioned above. Medications/Allergies Home Medications ?Medication ?Instructions ?Recorded ?Confirmed ?Last Taken ?Type aspirin 81 mg tablet,delayed 81 mg PO DAILY 12/17/19 0 07/09/24 12/22/23 History release (Adult Aspirin Regimen) allopurinol 300 mg tablet 300 mg PO DAILY 04/21/2012/22/23 History pen needle, diabetic 31 gauge x #50 ea 11/16/21 Unknown Rx 1/4 allopurinol 100 mg tablet 200 mg PO DAILY 06/21/2312/22/23 History levothyroxine 100 mcg tablet 100 mcg PO DAILY #90 tabs 12/06/23 07/09/24 12/25/23 Rx semaglutide 2 mg/dose (8 mg/3 mL) See Rx Instructions .Route 02/15/24 07/09/24 Unknown Rx subcutaneous pen injector (Ozempic) .COMPLEX #9 mL atorvastatin 20 mg tablet 20 mg PO DAILY #90 tabs 12/0 09/1407/09/24 Unknown Rx amlodipine 5 mg tablet 5 mg PO DAILY #90 tabs 05/0907/09/24 Unknown Rx blood-glucose meter,continuous #1 ea 05/22/24 07/09/24 Unknown Rx (Dexcom G7 Producer) blood-glucose sensor (Dexcom G7 #3 ea 05/22/24 5 Unknown Rx Sensor device) enalapril maleate 5 mg tablet 5 mg PO DAILY #90 tabs 0 06/26/24 07/09/24 Unknown Rx insulin glargine 100 unit/mL (3 40 unit SUBCUT DAILY 0 07/09/24 07/09/24 Unknown History mL) subcutaneous pen (Lantus Solostar U-100 Insulin) prednisone 50 mg tablet 50 mg PO DAILY 07/09/2406/22 Unknown History Allergies Allergy/AdvReac Type Severity Reaction Status Date / Time Iodinated Contrast Media Allergy ALGY-Difficulty Verified 07/08/24 20:01 Swallowing metformin Allergy pt states Verified 07/08/24 20:01 it feels like he has bugs crawling all over him Current Medications Generic Name Dose Route Start Last Admin Trade Name Freq PRN Reason Stop Dose Admin Allopurinol 300 mg 07/09/24 09:00 07/09/24 09:06 Allopurinol 300 Mg Tablet PO 300 mg DAILY BRIAN Administration Aspirin 81 mg 07/09/24 09:00 07/09/24 09:06 Aspirin 81 Mg Ec Tablet PO 81 mg DAILY BRIAN Administration Atorvastatin Calcium 20 mg 07/08/24 23:30 07/09/24 01:04 Atorvastatin 10 Mg Tablet PO 20 mg BEDTIME BRIAN Administration Enoxaparin Sodium 40 mg 07/08/24 23:30 07/08/24 23:36 Enoxaparin 40 Mg/0.4 Ml Syringe SUBCUT 40 mg BEDTIME BRIAN Administration Furosemide 20 mg 07/09/24 00:45 07/09/24 01:04 Furosemide 10 Mg/Ml Sdv 2ml IVP 20 mg Q24H BRIAN Administration Hydralazine HCl 10 mg 07/09/24 09:40 07/09/24 09:57 Hydralazine 20 Mg/Ml Inj 1 Ml IVP 10 mg Q4H PRN Administration SBP More than 160 mmhg Insulin Glargine 40 unit 07/09/24 09:45 07/09/24 10:26 Insulin Glargine 100 Units/1 Ml SUBCUT Not Given DAILY BRIAN Levothyroxine Sodium 100 mcg 07/09/24 07:00 07/09/24 06:05 Levothyroxine 100 Mcg Tablet PO 100 mcg ACBREAKFAST BRIAN Administration PFSH Acute 2 PFSH: Medical History Vitamin D deficiency Minor depression KRIS (obstructive sleep apnea) noncompliant with CPAP CKD stage 3 secondary to diabetes Hypertension Gout Whipple disease Thyroid nodule Uncontrolled type 2 diabetes with neuropathy Hyperlipidemia Diabetic neuropathy Hypothyroid Surgical History Hx of colonoscopy 10 years ago Hx of cholecystectomy Family History Mother Hypertension Father Hypertension Social History Smoking and tobacco/nicotine status: never used tobacco/nicotine Alcohol intake: current Alcohol intake frequency: holidays/special occasions only Alcohol type: beer and hard liquor Substance/Drug Use: never Vitals/I&O/Wt Last Vital Signs Temp 98.2 F 07/09/24 12:03 Pulse 73 07/09/24 12:03 Resp 22 H 07/09/24 12:03 BP 177/101 07/09/24 12:03 Pulse Ox 98 07/09/24 12:03 O2 Del Method Room Air 07/09/24 08:16 07/08/24 07/09/24 07/09/24 22:59 06:59 14:59 Intake Total 240 / 240 Output Total 1200 / 1200 Balance -1200 / -1200 240 / 240 Weight last 48 hrs Weight 285 lb Weight 280 lb Physical Exam 2 Narrative: GENERAL: The patient is alert and oriented times three. Not in any acute distress. Moderately obese HEENT: No significant pallor, icterus or lymphadenopathy.Oral cavity: There are no mucous membrane lesions. NECK: Trachea appears to be central. No masses noted. No JVD or thyromegaly appreciated. RESPIRATORY: Chest is symmetrical. No intercostals muscle retraction or any accessory muscle activation. There is no chest wall tenderness. Breath sounds are heard bilaterally. No rales or rhonchi heard. No evidence of any consolidation. BREASTS: Deferred. HEART: The heart sounds are normal. No S3 or S4. No significant murmurs. No pericardial rub ABDOMEN: No vessel pulsations or distention. No tenderness. No organomegaly appreciated. Bowel sounds are normally heard. : Deferred. RECTAL: Deferred. LYMPHATIC: No lymphadenopathy noted in the neck. EXTREMITIES: No edema or cyanosis. No clubbing. MUSCULOSKELETAL: No acute joint deformities or swelling SKIN: There are no significant rashes or ecchymosis NEUROPSYCHIATRIC: The patient is alert and oriented x3. Appears to be in a good mood. No tremors or rigidity noted. Data 07/10/24 03:50 07/10/24 03:50 Other Labs: Laboratory Last Values WBC 7.04 10^3/uL (3.29-11.43) 07/08/24 20:12 RBC 4.81 10^6/uL (3.85-5.65) 07/08/24 20:12 Hgb 14.80 g/dL (11.27-16.99) 07/08/24 20:12 Hct 43.7 % (37-53) 07/08/24 20:12 MCV 90.9 fl (82-101) 07/08/24 20:12 MCH 30.8 pg (27-33) 07/08/24 20:12 MCHC 33.9 g/dL (30-55) 07/08/24 20:12 RDW 13.0 % (12.1-15.1) 07/08/24 20:12 Plt Count 287 10^3/cmm (157-399) 07/08/24 20:12 MPV 9.7 fL (7.4-10.4) 07/08/24 20:12 Neut % (Auto) 55.2 % 07/08/24 20:12 Lymph % (Auto) 30.7 % 07/08/24 20:12 Stephens % (Auto) 8.8 % 07/08/24 20:12 Eos % (Auto) 4.0 % 07/08/24 20:12 Baso % (Auto) 1.0 % 07/08/24 20:12 Neut # (Auto) 3.89 10^3/uL (1.8-7.7) 07/08/24 20:12 Lymph # (Auto) 2.2 10^3/uL (0.8-4.8) 07/08/24 20:12 Stephens # (Auto) 0.6 10^3/uL (0.2-0.9) 07/08/24 20:12 Eos # (Auto) 0.3 10^3/uL (0.0-0.8) 07/08/24 20:12 Baso # (Auto) 0.1 10^3/uL (0.0-0.1) 07/08/24 20:12 Nucleated RBC % (auto) 0 % 07/08/24 20:12 Nucleated RBCs # 0.0 /100WBC 07/08/24 20:12 D-Dimer 0.41 ug/mLFEU (0-0.59) 07/08/24 20:12 Sodium 137 mmol/L (136-145) 07/09/24 02:04 Potassium 3.6 mmol/L (3.5-5.1) 07/09/24 02:04 Chloride 101 mmol/L (98-107) 07/09/24 02:04 Carbon Dioxide 27 mmol/L (22-29) 07/09/24 02:04 Anion Gap 12.6 (5-19) 07/09/24 02:04 BUN 16 mg/dL (8-23) 07/09/24 02:04 Creatinine 1.2 mg/dL (0.7-1.2) 07/09/24 02:04 GFR Calculation 60.8 mL/min (90-130) L 07/09/24 02:04 Glucose 144 mg/dL (65-115) H 07/09/24 02:04 POC Glucose 159 mg/dL (70-110) H 07/09/24 09:54 Calculated Osmolality 288 mOsm/kg (285-295) 07/09/24 02:04 Calcium 9.0 mg/dL (8.5-10.5) 07/09/24 02:04 Magnesium 1.8 mg/dL (1.7-2.3) 07/09/24 02:04 Iron 46 ug/dL (59-158) L 07/09/24 02:04 TIBC 224 mcg/dl 07/09/24 02:04 % Saturation 20.5 % (20-50) 07/09/24 02:04 Unsat Iron Binding 178 ug/dL (112-347) 07/09/24 02:04 Total Bilirubin 0.4 mg/dL (0.15-1.2) 07/08/24 20:12 AST 17 U/L (0-40) 07/08/24 20:12 ALT 24 U/L (0-41) 07/08/24 20:12 Alkaline Phosphatase 113 U/L (40-130) 07/08/24 20:12 Troponin T Baseline 19 ng/L (0-15) H 07/08/24 20:12 Troponin T 120 Minute 17.78 ng/L (0-15) H 07/08/24 21:56 Delta Troponin T -1.22 ABS# (0-10) L 07/08/24 21:56 Troponin T Hi Sens 6Hr 18.52 ng/L (0-15) H 07/09/24 02:04 Troponin T Hi Sens 6Hr Delta -0.48 ng/L (0-12) L 07/09/24 02:04 NT-Pro-B Natriuret Pep 249 pg/mL (0-125) H 07/08/24 20:12 Total Protein 6.3 g/dL (6.6-8.7) L 07/08/24 20:12 Albumin 3.7 g/dL (3.5-5.2) 07/08/24 20:12 Globulin 2.6 g/dL (1.3-4.6) 07/08/24 20:12 EKG 1: My Interpretation: The EKG showed a sinus rhythm with occasional PACs. Nonspecific IVCD. No acute ST-T changes. Other data: Myocardial perfusion imaging from today 1. Myocardial perfusion imaging revealing moderate area of persistent decreased tracer uptake involving the inferior, inferolateral and apical regions with a small area of slight reversibility, suggesting myocardial scarring predominantly in the distribution of the right coronary artery with some involvement of the circumflex and left descending artery. Very small area of ischemia in the apical lateral region, suggestive Myocard scarring with a very small area of possible preinfarction ischemia. 2. Normal LV ejection fraction of 57%. 3. LV wall motion analysis revealing no gross wall motion abnormalities. 4. Mildly dilated LV cavity with end-systolic volume of 62 mL No similar previous studies are available for comparison A&P Assessment and plan (1) Abnormal nuclear cardiac imaging test: The abnormal Myocardial perfusion imaging is a history of myocardial scarring in the distribution of all the 3 coronary arteries, predominantly in the distribution of the right coronary artery. Also seems to have some ischemia in the RCA territory. (2) Abnormal EKG: The EKG changes are nonspecific. (3) Chest pain: The chest pain is somewhat atypical. However in view of the multiple fractures and the abnormal Myocardial perfusion imaging, possibility of him having underlying coronary ischemia causing the pain is a strong consideration. Qualifiers: Chest pain type: unspecified Qualified Code(s): R07.9 - Chest pain, unspecified (4) Mixed dyslipidemia: May continue on the current medications. May go ahead and do a lipid profile in the morning (5) Hypertension: The blood pressure is elevated. 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 May continue the current management. Qualifiers: Diabetes mellitus adjunct faculty for medical terminology insulin use: with usp use Qualified Code(s): E11.21 - Type 2 diabetes mellitus with diabetic nephropathy; Z79.4 - longterm (current) use of insulin Plan I may do an echocardiogram to evaluate LV function and rule out any other pathology. In view of his multiple risk factors and ongoing symptoms, in order to further evaluate the coronary status, a cardiac catheterization would be appropriate. The risk of bleeding, hematoma, vascular injury, myocardial infarction, myocardial perforation, malignant cardiac arrhythmias ,CVA, renal failure and other concomitant complications were explained in detail. Patient understood this well and consented to proceed We may go ahead and do schedule this procedure for tomorrow. Based on the results, further recommendations will be made Thank for the opportunity was this patient make these recommendations PDMP PDMP Reviewed: Not Reviewed Coding Level of Care Code 76358 Diagnoses Abnormal nuclear cardiac imaging test R93.1 Abnormal EKG R94.31 Chest pain, unspecified type R07.9 Chest pain type: unspecified Mixed dyslipidemia E78.2 Primary hypertension I10 Hypertension type: primary hypertension Type 2 diabetes mellitus with diabetic nephropathy, with long-term current use of insulin E11.21; Z79.4 Diabetes mellitus adjunct faculty for medical terminology insulin use: with adjunct faculty for medical terminology use
--- NOTE | 2024-07-09 14:19 | P.PN_ITS ---
Subjective 2 Subjective: Admitted overnight. Seen with spouse at bedside. Patient is comfortably in bed. Since after cardiac stress test. Blood pressure is elevated. Denies any active chest pain. Denies any nausea, vomiting, headache. Saturating well on room air. Vitals/I&O/Wt Last Vital Signs Temp 98.2 F 07/09/24 12:03 Pulse 70 07/09/24 12:50 Resp 16 07/09/24 12:50 BP 177/101 07/09/24 12:03 Pulse Ox 98 07/09/24 12:50 O2 Del Method Room Air 07/09/24 12:50 07/08/24 07/09/24 07/09/24 22:59 06:59 14:59 Intake Total 240 / 240 Output Total 1200 / 1200 Balance -1200 / -1200 240 / 240 Weight last 48 hrs Weight 129.274 kg Weight 127.006 kg Physical Exam 2 Narrative: General: No acute distress, AO x3, morbidly obese HEENT: PERRLA, pupils bilaterally equal and reactive Chest: Normal vesicular breath sounds, no added sounds, equal good air entry bilaterally CVS: S1-S2 regular, soft pansystolic murmur, no tachycardia, no gallops, no rubs Abdomen: Soft, nontender, no organomegaly, bowel sounds present Neuro: No focal deficits, no facial deformity, AO x3, power 5/5 in all limbs Data 07/08/24 20:12 07/09/24 02:04 A&P Assessment and plan (1) Accelerated hypertension: Goal blood pressure less than 140/90 mmHg. Blood pressure is elevated. Patient takes amlodipine 5 mg, enalapril 5 mg at home. For now continue with Coreg 6.25 mg twice daily. Switch to losartan 100 mg oral daily. Add amlodipine 5 mg oral daily. Will uptitrate as for goal blood pressure. IV hydralazine 10 mg every 4 hours as needed for systolic more than 160 mmHg. (2) Unstable angina: Concerning for dyspnea on exertion getting worse over last 1 month. Non-smoker. Sitting family history with father having fatal IL. Cardiac stress test concerning for chika-infarct ischemia. Will consult cardiology. Follow-up echocardiogram. Given milligrams daily, atorvastatin 20 mg daily. Beta-kaylyn as above. Appreciate recent A1c, lipid panel. (3) Type 2 diabetes mellitus with diabetic nephropathy: A1c of 8.3 Continue with Lantus 40 units nightly. Start on sliding scale moderate dose protocol. (4) CKD stage 3 secondary to diabetes: Baseline creatinine of 1.2. Medical reconciliation done for nephrotoxic drugs. Monitor renal functions daily for now. (5) KRIS (obstructive sleep apnea): Continue to monitor. Patient noncompliant with CPAP in the past. (6) Positive cardiac stress test: Plan Carb consistent cardiac diet Protonix for PUD prophylaxis Lovenox for DVT prophylaxis PDMP PDMP Reviewed: Not Reviewed Attestations 2 Medical Necessity Statement*: Requires further hospitalization for management of uncontrolled hypertension, unstable angina with positive cardiac stress test as patient requires further workup Diagnoses Accelerated hypertension I10 Unstable angina I20.0 Type 2 diabetes mellitus with diabetic nephropathy E11.21 CKD stage 3 secondary to diabetes E11.22; N18.30 KRIS (obstructive sleep apnea) G47.33 Positive cardiac stress test R94.39
--- NOTE | 2024-07-09 14:31 | PC.NURSE ---
Received PO Hydralazine order per Dr Cunningham. Hospitalist Dr Gavin had concurrently placed orders to manage patients blood pressure. Called Dr. Gavin to clarify orders and he gave instructions to hold PO Hydralazine. Confirmed with Dr Cunningham as well. Patient also scheduled for angiogram at per Dr Cunningham on 07/10 at 0830.
[2024-07-09] MEDS: losartan 50 mg Tablet 100 MG PO (14:44)
[2024-07-09 15:29] LABS: Anion Gap 12.7 (5-19); Blood Urea Nitrogen 15 mg/dL (8-23); Calcium 9.1 mg/dL (8.5-10.5); Carbon Dioxide 26 mmol/L (22-29); Chloride 100 mmol/L (98-107); Glomerular Filtration Rate 84.7 mL/min (90-130); Glucose 197 mg/dL (65-115); Osmolality Calculated 286 mOsm/kg (285-295); Potassium 3.7 mmol/L (3.5-5.1); Sodium 135 mmol/L (136-145)
[2024-07-09] MEDS: carvedilol 6.25 mg Tablet PO (17:43)
--- NOTE | 2024-07-09 20:19 | PC.RESP ---
overnight pulse ox started on patient at 2017. Patient started on baseline room air. SpO2 95% HR 87
[2024-07-09] MEDS: enoxaparin 40 mg/0.4 mL Syringe SUBCUT (21:33)
[2024-07-09 21:39] LABS: Chol HDL Ratio 4.91 mg/dL (1.0-5.00); Cholesterol 162 mg/dL (0-200); HDL Cholesterol 33 mg/dL (60-100); LDL Cholesterol Calculated 95 mg/dL (50-129); LDL HDL Ratio 2.88 RATIO (0.00-3.22); Triglycerides 171 mg/dL (0-150)
[2024-07-10] VITALS (17 sets, daily range): BP systolic 124–173; BP diastolic 75–108; PULSE 69–82; RESP 12–26; TEMP 36.4–36.9; O2SAT 91–97
[2024-07-10] MEDS: FUROsemide 10 mg/mL SDV 2mL 20 MG IVP (00:20)
[2024-07-10 04:45] LABS: Basophils # 0.1 10^3/uL (0.0-0.1); Basophils % 0.7 %; Eosinophils # 0.3 10^3/uL (0.0-0.8); Eosinophils % 3.1 %; Hematocrit 47.2 % (37-53); Lymphocytes # 1.7 10^3/uL (0.8-4.8); Lymphocytes % 19.2 %; Mean Corpuscular HGB Conc 33.1 g/dL (30-55); Mean Corpuscular Hemoglobin 30.1 pg (27-33); Mean Corpuscular Volume 90.9 fl (82-101); Mean Platelet Volume 10.1 fL (7.4-10.4); Monocytes # 0.7 10^3/uL (0.2-0.9); Monocytes % 7.7 %; Neutrophils # 6.02 10^3/uL (1.8-7.7); Neutrophils % 68.8 %; Nucleated Red Blood Cells % 0 %; Platelet Count 281 10^3/cmm (157-399); Red Blood Count 5.19 10^6/uL (3.85-5.65); Red Cell Distribution Width 12.9 % (12.1-15.1); White Blood Count 8.74 10^3/uL (3.29-11.43)
[2024-07-10 05:06] LABS: Magnesium 1.9 mg/dL (1.7-2.3)
[2024-07-10 05:13] LABS: Alanine Aminotransferase 22 U/L (0-41); Albumin Level 3.7 g/dL (3.5-5.2); Alkaline Phosphatase 119 U/L (40-130); Anion Gap 13.4 (5-19); Aspartate Amino Transferase 16 U/L (0-40); Blood Urea Nitrogen 15 mg/dL (8-23); Calcium 9.3 mg/dL (8.5-10.5); Carbon Dioxide 29 mmol/L (22-29); Chloride 99 mmol/L (98-107); Globulin 3.4 g/dL (1.3-4.6); Glomerular Filtration Rate 55.4 mL/min (90-130); Glucose 176 mg/dL (65-115); Osmolality Calculated 289 mOsm/kg (285-295); Potassium 4.4 mmol/L (3.5-5.1); Sodium 137 mmol/L (136-145); Total Bilirubin 0.8 mg/dL (0.15-1.2); Total Protein 7.1 g/dL (6.6-8.7)
[2024-07-10] MEDS: levothyroxine 100 mcg Tablet PO (06:33)
[2024-07-10] MEDS: aspirin 325 mg Tablet PO (06:33)
[2024-07-10] MEDS: sodium chloride 0.9% 1,000 ML 50 ML IV (06:34)
--- NOTE | 2024-07-10 07:32 | PM.PN ---
Subjective Subjective: Patient was found to have elevated creatinine of 1.3 today. The creatinine level was within normal limits. Patient continues to have a mild chest discomfort. Medications: Medication Review Details: Current Medications Acetaminophen (Acetaminophen 500 Mg Tablet) 500 mg PO Q4H PRN PRN Reason: fever Albuterol/Ipratropium (Ipratropium-Albuterol 3 Ml Neb) 3 ml INHALATION Q6H PRN PRN Reason: SHORTNESS OF BREATH Allopurinol (Allopurinol 300 Mg Tablet) 300 mg PO DAILY [facility] Last Admin: 07/09/24 09:06 Dose: 300 mg Amlodipine Besylate (Amlodipine 10 Mg Tablet) 10 mg PO DAILY [facility] Aspirin (Aspirin 81 Mg Ec Tablet) 81 mg PO DAILY [facility] Last Admin: 07/09/24 09:06 Dose: 81 mg Atorvastatin Calcium (Atorvastatin 10 Mg Tablet) 20 mg PO BEDTIME [facility] Last Admin: 07/09/24 21:33 Dose: 20 mg Carvedilol (Carvedilol 6.25 Mg Tablet) 6.25 mg PO BID [facility] Last Admin: 07/09/24 17:43 Dose: 6.25 mg Enoxaparin Sodium (Enoxaparin 40 Mg/0.4 Ml Syringe) 40 mg SUBCUT BEDTIME [facility] Last Admin: 07/09/24 21:33 Dose: 40 mg Furosemide (Furosemide 10 Mg/Ml Sdv 2ml) 20 mg IVP Q24H [facility] Last Admin: 07/10/24 00:20 Dose: 20 mg Hydralazine HCl (Hydralazine 20 Mg/Ml Inj 1 Ml) 10 mg IVP Q4H PRN PRN Reason: SBP More than 160 mmhg Last Admin: 07/09/24 13:43 Dose: 10 mg Sodium Chloride (Sodium Chloride 0.9%) 1,000 mls @ 50 mls/hr IV .Q20H ONE Stop: 07/11/24 01:59 Last Admin: 07/10/24 06:34 Dose: 50 mls/hr Insulin Glargine (Insulin Glargine 100 Units/1 Ml) 40 unit SUBCUT DAILY [facility] Last Admin: 07/09/24 10:26 Dose: Not Given Levothyroxine Sodium (Levothyroxine 100 Mcg Tablet) 100 mcg PO ACBREAKFAST [facility] Last Admin: 07/10/24 06:33 Dose: 100 mcg Losartan Potassium (Losartan 50 Mg Tablet) 100 mg PO DAILY [facility] Last Admin: 07/09/24 14:44 Dose: 100 mg Morphine Sulfate (Morphine 4 Mg/Ml Sdv 1 Ml) 2 mg IVP Q4H PRN PRN Reason: chest pain Nitroglycerin (Nitroglycerin 1 Gm/Inch Oint Pkt) 1 inch TOPICAL Q6H PRN PRN Reason: BLOOD PRESSURE Ondansetron HCl (Ondansetron 2 Mg/Ml Sdv 2 Ml) 4 mg IVP Q6H PRN PRN Reason: NAUSEA AND VOMITING Ondansetron HCl (Ondansetron 2 Mg/Ml Sdv 2 Ml) 4 mg IVP Q2M PRN PRN Reason: NAUSEA Vitals/I&O/Wt Last Vital Signs Temp 97.6 F 07/10/24 04:00 Pulse 82 07/10/24 05:39 Resp 16 07/10/24 05:39 BP 160/108 07/10/24 05:39 Pulse Ox 96 07/10/24 05:39 O2 Del Method Room Air 07/10/24 05:39 07/09/24 07/10/24 07/10/24 22:59 06:59 14:59 Intake Total 240 / 480 Output Total 400 / 400 1575 / 1975 Balance -160 / 80 -1575 / -1495 Weight last 48 hrs Weight 283 lb 9.6 oz Weight 285 lb Weight 280 lb Physical Exam Narrative: GENERAL: The patient is alert and oriented times three. Not in any acute distress. Moderately obese HEENT: No significant pallor, icterus or lymphadenopathy.Oral cavity: There are no mucous membrane lesions. NECK: Trachea appears to be central. No masses noted. No JVD or thyromegaly appreciated. RESPIRATORY: Chest is symmetrical. No intercostals muscle retraction or any accessory muscle activation. There is no chest wall tenderness. Breath sounds are heard bilaterally. No rales or rhonchi heard. No evidence of any consolidation. BREASTS: Deferred. HEART: The heart sounds are normal. No S3 or S4. No significant murmurs. No pericardial rub ABDOMEN: No vessel pulsations or distention. No tenderness. No organomegaly appreciated. Bowel sounds are normally heard. : Deferred. RECTAL: Deferred. LYMPHATIC: No lymphadenopathy noted in the neck. EXTREMITIES: No edema or cyanosis. No clubbing. MUSCULOSKELETAL: No acute joint deformities or swelling SKIN: There are no significant rashes or ecchymosis NEUROPSYCHIATRIC: The patient is alert and oriented x3. Appears to be in a good mood. No tremors or rigidity noted. Data 07/10/24 03:50 07/10/24 09:15 Other Labs: Laboratory Last Values WBC 8.74 10^3/uL (3.29-11.43) 07/10/24 03:50 RBC 5.19 10^6/uL (3.85-5.65) 07/10/24 03:50 Hgb 15.60 g/dL (11.27-16.99) 07/10/24 03:50 Hct 47.2 % (37-53) 07/10/24 03:50 MCV 90.9 fl (82-101) 07/10/24 03:50 MCH 30.1 pg (27-33) 07/10/24 03:50 MCHC 33.1 g/dL (30-55) 07/10/24 03:50 RDW 12.9 % (12.1-15.1) 07/10/24 03:50 Plt Count 281 10^3/cmm (157-399) 07/10/24 03:50 MPV 10.1 fL (7.4-10.4) 07/10/24 03:50 Neut % (Auto) 68.8 % 07/10/24 03:50 Lymph % (Auto) 19.2 % 07/10/24 03:50 Humphreys % (Auto) 7.7 % 07/10/24 03:50 Eos % (Auto) 3.1 % 07/10/24 03:50 Baso % (Auto) 0.7 % 07/10/24 03:50 Neut # (Auto) 6.02 10^3/uL (1.8-7.7) 07/10/24 03:50 Lymph # (Auto) 1.7 10^3/uL (0.8-4.8) 07/10/24 03:50 Humphreys # (Auto) 0.7 10^3/uL (0.2-0.9) 07/10/24 03:50 Eos # (Auto) 0.3 10^3/uL (0.0-0.8) 07/10/24 03:50 Baso # (Auto) 0.1 10^3/uL (0.0-0.1) 07/10/24 03:50 Nucleated RBC % (auto) 0 % 07/10/24 03:50 Nucleated RBCs # 0.0 /100WBC 07/10/24 03:50 D-Dimer 0.41 ug/mLFEU (0-0.59) 07/08/24 20:12 Sodium 137 mmol/L (136-145) 07/10/24 03:50 Potassium 4.4 mmol/L (3.5-5.1) 07/10/24 03:50 Chloride 99 mmol/L (98-107) 07/10/24 03:50 Carbon Dioxide 29 mmol/L (22-29) 07/10/24 03:50 Anion Gap 13.4 (5-19) 07/10/24 03:50 BUN 15 mg/dL (8-23) 07/10/24 03:50 Creatinine 1.3 mg/dL (0.7-1.2) H 07/10/24 03:50 GFR Calculation 55.4 mL/min (90-130) L 07/10/24 03:50 Glucose 176 mg/dL (65-115) H 07/10/24 03:50 POC Glucose 159 mg/dL (70-110) H 07/09/24 09:54 Calculated Osmolality 289 mOsm/kg (285-295) 07/10/24 03:50 Calcium 9.3 mg/dL (8.5-10.5) 07/10/24 03:50 Magnesium 1.9 mg/dL (1.7-2.3) 07/10/24 03:50 Iron 46 ug/dL (59-158) L 07/09/24 02:04 TIBC 224 mcg/dl 07/09/24 02:04 % Saturation 20.5 % (20-50) 07/09/24 02:04 Unsat Iron Binding 178 ug/dL (112-347) 07/09/24 02:04 Total Bilirubin 0.8 mg/dL (0.15-1.2) 07/10/24 03:50 AST 16 U/L (0-40) 07/10/24 03:50 ALT 22 U/L (0-41) 07/10/24 03:50 Alkaline Phosphatase 119 U/L (40-130) 07/10/24 03:50 Troponin T Baseline 19 ng/L (0-15) H 07/08/24 20:12 Troponin T 120 Minute 17.78 ng/L (0-15) H 07/08/24 21:56 Delta Troponin T -1.22 ABS# (0-10) L 07/08/24 21:56 Troponin T Hi Sens 6Hr 18.52 ng/L (0-15) H 07/09/24 02:04 Troponin T Hi Sens 6Hr Delta -0.48 ng/L (0-12) L 07/09/24 02:04 NT-Pro-B Natriuret Pep 249 pg/mL (0-125) H 07/08/24 20:12 Total Protein 7.1 g/dL (6.6-8.7) 07/10/24 03:50 Albumin 3.7 g/dL (3.5-5.2) 07/10/24 03:50 Globulin 3.4 g/dL (1.3-4.6) 07/10/24 03:50 Triglycerides 171 mg/dL (0-150) H 07/09/24 21:17 Cholesterol 162 mg/dL (0-200) 07/09/24 21:17 LDL Cholesterol, Calc 95 mg/dL (50-129) 07/09/24 21:17 HDL Cholesterol 33 mg/dL (60-100) L 07/09/24 21:17 LDL/HDL Ratio 2.88 RATIO (0.00-3.22) 07/09/24 21:17 Cholesterol/HDL Ratio 4.91 mg/dL (1.0-5.00) 07/09/24 21:17 A&P Assessment and plan (1) Acute kidney injury: The etiology is unclear. I may go ahead and start the patient on IV fluid. Given a bolus of 250 cc. Will repeat the BMP afterwards. If the creatinine is still elevated, we may have to postpone the cardiac catheterization. (2) Abnormal nuclear cardiac imaging test: The abnormal Myocardial perfusion imaging is a history of myocardial scarring in the distribution of all the 3 coronary arteries, predominantly in the distribution of the right coronary artery. Also seems to have some ischemia in the RCA territory. In view of the patient's ongoing symptoms, for further evaluation of the coronary status, patient requires a cardiac catheterization. (3) Abnormal EKG: The EKG changes are nonspecific. (4) Chest pain: The chest pain is somewhat atypical. However in view of the multiple fractures and the abnormal Myocardial perfusion imaging, possibility of him having underlying coronary ischemia causing the pain is a strong consideration. Based on the angiogram findings, further recommendations will be made. Qualifiers: Chest pain type: unspecified Qualified Code(s): R07.9 - Chest pain, unspecified (5) Mixed dyslipidemia: May continue on the current medications. May go ahead and do a lipid profile in the morning (6) Hypertension: The blood pressure is elevated. Will optimize the antihypertensive treatment I may go ahead and start the patient on a Nitropaste 1 inch every 6 hours to the anterior chest wall Qualifiers: Hypertension type: primary hypertension Qualified Code(s): I10 - Essential (primary) hypertension (7) Type 2 diabetes mellitus with diabetic nephropathy: There are diabetes seems to be fairly under control. May continue the current management. Qualifiers: Diabetes mellitus long term care pharmacist insulin use: with long term care pharmacist use Qualified Code(s): E11.21 - Type 2 diabetes mellitus with diabetic nephropathy; Z79.4 - technician terminal and repeater (current) use of insulin Plan The patient is scheduled for an angiogram today. Based on the repeat BMP, further recommendations will be made. Because of the abnormal kidney function, patient carries a higher risk for contrast-induced nephropathy. PDMP PDMP Reviewed: Not Reviewed Attestations Medical Necessity Statement*: Patient requires continued hospital stay for close monitoring and further management Coding Level of Care Code 58113 Diagnoses Acute kidney injury N17.9 Abnormal nuclear cardiac imaging test R93.1 Abnormal EKG R94.31 Chest pain, unspecified type R07.9 Chest pain type: unspecified Mixed dyslipidemia E78.2 Primary hypertension I10 Hypertension type: primary hypertension Type 2 diabetes mellitus with diabetic nephropathy, with long-term current use of insulin E11.21; Z79.4 Diabetes mellitus long-term insulin use: with long-term use
[2024-07-10] MEDS: allopurinol 300 mg Tablet PO (07:42)
[2024-07-10] MEDS: aspirin 81 mg EC Tablet PO (07:42)
[2024-07-10] MEDS: losartan 50 mg Tablet 100 MG PO (07:42)
[2024-07-10] MEDS: amlodipine 10 mg Tablet PO (07:42)
[2024-07-10] MEDS: carvedilol 6.25 mg Tablet PO ×2 (07:43→18:03)
[2024-07-10] MEDS: nitroglycerin 1 gm/inch oint Pkt 1 INCH TOPICAL (07:43)
--- NOTE | 2024-07-10 10:00 | PC.CHAP ---
Pastoral Care Encounter/Spiritual Assessment Type of Contact [] Declined abseiling instructor visit [] Patient/Family/Request visit [] Outpatient visit [] Follow-up visit [] Physician referral [] Code/Alert [x] Routine visit [] Staff referral [] Actively dying [] Patient sleeping [] Family support [] [] Out of room [] Palliative care [] [] Receiving care in room [] Pre-surgical visit [] Trauma [] Long length of stay [] ICU visit [] Other: Relational/Emotional Strength [x] Patient feels connected with others/family/visitors/staff [] Distress [] Loneliness/isolation [] Abandonment Spirituality of Patient [x] Person of Belen [] Attends Hinduism of their Belen [x] Believes in Prayer [] Reads Bible or Buddhism materials [] There are Spiritual issues to be addressed Moss Picker Interventions [x] Prayer [x] Active listening [] Non-anxious presence [x] Spiritual/emotional support [] Crisis/trauma care [] Spiritual counseling [] Bereavement support [] Provided bereavement packet [] Provided Bible/devotional materials [] Provided toy/stuffed animal, coloring book to patient or family member [] Provided Communion [] Anointing/Blum [] Salvation [x] Completed spiritual assessment [] Other: Impact on Illness or Injury [] Angry [] Fearful [] Anxious [] Often cries [] Exhaustion [] Unable to work [] Unable to attend mormon [] Unable to walk/stand [] Unable to read [] Unable to drive [] Unable to eat/drink [] Unable to sleep [] Unable to be with family [] Patient intubated [] Other: Summary Time spent with patient 5 min
[2024-07-10 10:47] LABS: Anion Gap 13.9 (5-19); Blood Urea Nitrogen 16 mg/dL (8-23); Calcium 8.9 mg/dL (8.5-10.5); Carbon Dioxide 25 mmol/L (22-29); Chloride 101 mmol/L (98-107); Glomerular Filtration Rate 67.2 mL/min (90-130); Glucose 175 mg/dL (65-115); NT Pro B Type Natriuretic Pept 305 pg/mL (0-125); Osmolality Calculated 287 mOsm/kg (285-295); Potassium 3.9 mmol/L (3.5-5.1); Sodium 136 mmol/L (136-145)
--- OUTSIDE RECORDS SUMMARY | 2024-07-10 12:31 | XMS_ITS | Encounter Summary ---
Author Organization [facility] Address [address] [place] [address] Care Team Providers Care Shop Estimator Name Role Phone Abraham Painting DO Primary Care Provid er Unavailable Encounter Details Date Type Department Care Team (Late st Contact Info) Description 04/06/2004 Outpatient Historical [facility] Cardiovascular Services [address] 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
--- OUTSIDE RECORDS SUMMARY | 2024-07-10 12:31 | XMS_ITS | Encounter Summary ---
Author Organization [facility] Address [address] [place] [address] Care Team Providers Care Payer Specialist Name Role Phone Abraham Painting DO Primary Care Provid er Unavailable Encounter Details Date Type Department Care Team (Late st Contact Info) Description 01/02/2003 Outpatient Historical [facility] Gen Spec Surg [address] [phone] Jd Blackmon MD [address] [place] [phone] CHOLELITHIASIS NOS (Primary Dx) Social History Tobacco Use Types Packs/Day Years Used Date Smoking Tobacco: Never Assessed Sex and Gender Information Value Date Recorded Sex Assigned at Not on file 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
--- OUTSIDE RECORDS SUMMARY | 2024-07-10 12:31 | XMS_ITS | Encounter Summary ---
Author Organization [facility] Address [address] [place] [address] Care Team Providers Care Receiver Setter Name Role Phone Abraham Painting DO Primary Care Provid er Unavailable Encounter Details Date Type Department Care Team (Late st Contact Info) Description 06/18/2024 External Device Data [place] ABSTRACTION Provider, Abstract NO ADDRESS ON FILE Social History Tobacco Use Types Packs/Day Years Used Date Smoking Tobacco: Never Smokeless Tobacco: Former Quit: 04/24/2003 Alcohol Use Standard Drinks/Week Comments No 0 (1 standard drink = 0.6 oz pur e alcohol) Sex and Gender Information Value Date Recorded Sex Assigned at Not on file Legal Sex Male 5:50 AM ANTIQUE REPAIRER Gender Identity Not on file Sexual Orientation Not on file documented as of this encounter Plan of Treatment Upcoming Encounters Date Type Department Care Team (Late st Contact Info) Description 06/27/2025 9:20 AM ANTIQUE REPAIRER Office Visit [facility] Rheumatology- [place] [address] [place] [address] Juan F Poe MD [address] [place] [address] documented as of this encounter Visit Diagnoses Not on filedocumented in this encounter Care Teams Receiver Setter Relationship Specialty Start Date End Date Abraham Painting DO PCP - General Family Practice 12/21/18 documented as of this encounter
--- OUTSIDE RECORDS SUMMARY | 2024-07-10 12:31 | XMS_ITS | Encounter Summary ---
Author Organization [facility] Address [address] [place] [address] Care Team Providers Care Hospice Admitting Clerk Name Role Phone Abraham Painting DO Primary Care Provid er Unavailable Encounter Details Date Type Department Care Team (Late st Contact Info) Description 04/13/2004 Outpatient Historical [facility] Imaging Services-[place] [address] [place] [address] Jd Blackmon MD [address] 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
--- OUTSIDE RECORDS SUMMARY | 2024-07-10 12:31 | XMS_ITS | Encounter Summary ---
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
--- OUTSIDE RECORDS SUMMARY | 2024-07-10 12:31 | XMS_ITS | Encounter Summary ---
Author Organization [facility] Address [address] [place] [address] Care Team Providers Care Audit Spec Name Role Phone Abraham Painting DO Primary Care Provid er Unavailable Encounter Details Date Type Department Care Team (Latest Contact Info) Description 08/11/1997 Outpatient Historical [facility] Dominic Montes MD NO ADDRESS ON FILE Central origin vertigo (Primary Dx) Social History Tobacco Use Types Packs/Day Years Used Date Smoking Tobacco: Never Assessed Sex and Gender Information Value Date Recorded Sex Assigned at Not on file 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
--- OUTSIDE RECORDS SUMMARY | 2024-07-10 12:31 | XMS_ITS | Encounter Summary ---
Author Organization [facility] Address [address] [place] [address] Care Team Providers Care Jig Filler Name Role Phone Abraham Painting DO Primary Care Provid er Unavailable Encounter Details Date Type Department Care Team (Late st Contact Info) Description 02/27/2001 Outpatient Historical [facility] Imaging Services-[place] [address] [place] [address] Social History Tobacco Use Types Packs/Day Years Used Date Smoking Tobacco: Never Assessed Sex and Gender Information Value Date Recorded Sex Assigned at Not on file 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
--- OUTSIDE RECORDS SUMMARY | 2024-07-10 12:31 | XMS_ITS | Encounter Summary ---
Author Organization [facility] Address [address] [place] [address] Care Team Providers Care Gardening Instructor Name Role Phone Abraham Painting DO Primary Care Provid er Unavailable Encounter Details Date Type Department Care Team (Late st Contact Info) Description 04/06/2004 Outpatient Historical [facility] Gen Spec Surg [address] [address] Jd Blackmon MD [address] [place] [phone] ABDOMINAL PAIN UNSPEC SITE (Primary Dx) Social History Tobacco Use Types Packs/Day Years Used Date Smoking Tobacco: Never Assessed Sex and Gender Information Value Date Recorded Sex Assigned at Not on file 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
--- OUTSIDE RECORDS SUMMARY | 2024-07-10 12:31 | XMS_ITS | Encounter Summary ---
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
--- OUTSIDE RECORDS SUMMARY | 2024-07-10 12:31 | XMS_ITS | Encounter Summary ---
Author Organization [facility] Address [address] [place] [address] Care Team Providers Care Dining Room Manager Name Role Phone Abraham Painting DO Primary Care Provid er Unavailable Encounter Details Date Type Department Care Team (Latest Contact Info) Description 01/02/2003 Outpatient Historical [facility] Gen Spec Surg [place] [address] 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
--- OUTSIDE RECORDS SUMMARY | 2024-07-10 12:31 | XMS_ITS | Encounter Summary ---
Author Organization [facility] Address [address] [place] [address] Care Team Providers Care Activities Director Scouting Name Role Phone Abraham Painting DO Primary Care Provid er Unavailable Encounter Details Date Type Department Care Team (Latest Contact Info) Description 03/24/2004 Outpatient Historical [facility] Imaging Services [address] [place] [phone] Lalo Acosta MD [address] [place], [place] [address] ABD/PEL SWELL/MASS/LUMP RUQ (Primary Dx) Social History Tobacco Use Types Packs/Day Years Used Date Smoking Tobacco: Never Assessed Sex and Gender Information Value Date Recorded Sex Assigned at Not on file 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
--- OUTSIDE RECORDS SUMMARY | 2024-07-10 12:31 | XMS_ITS | Encounter Summary ---
Author Organization [facility] Address [address] [place] [address] Care Team Providers Care Children Teacher Name Role Phone Abraham Painting DO Primary Care Provid er Unavailable Encounter Details Date Type Department Care Team (Late st Contact Info) Description 02/27/2001 Outpatient Historical [facility] Imaging Services-[facility] [place] [address] [place] [address] Social History Tobacco Use Types Packs/Day Years Used Date Smoking Tobacco: Never Assessed Sex and Gender Information Value Date Recorded Sex Assigned at Not on file 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
--- OUTSIDE RECORDS SUMMARY | 2024-07-10 12:31 | XMS_ITS | Encounter Summary ---
Author Organization [facility] Address [address] [place] [address] Care Team Providers Care Mother Baby Rn Name Role Phone Abraham Painting DO Primary Care Provid er Unavailable Encounter Details Date Type Department Care Team (Late st Contact Info) Description 05/08/2003 Outpatient Historical [facility] Gen Spec Surg [address] [address] Jd Blackmon MD [address] [place] [address] CHOLELITHIASIS NOS (Primary Dx); SURGERY FOLLOWUP, UNSPEC Social History Tobacco Use Types Packs/Day Years Used Date Smoking Tobacco: Never Assessed Sex and Gender Information Value Date Recorded Sex Assigned at Not on file 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
--- OUTSIDE RECORDS SUMMARY | 2024-07-10 12:31 | XMS_ITS | Encounter Summary ---
Author Organization [facility] Address [address] [place] [address] Care Team Providers Care Rn Urgent Care Name Role Phone [place], Abraham Srivastava DO Primary Care Provid er Unavailable Encounter Details Date Type Department Care Team (Late st Contact Info) Description 07/10/2004 Emergency [facility] Emergency Department [address] 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 Gender Identity Not on file Sexual Orientation Not on file documented as of this encounter Plan of Treatment Not on file documented as of this encounter Procedures Procedure Name Priority Date/Time Associated Diagnosis Comments CARDIAC ENZYMES Routine 07/10/2004 12:55 PM ELECTROMECHANICAL INSPECTOR CBC WITH DIFFERENTIAL Routine 07/10/2004 12:55 PM ELECTROMECHANICAL INSPECTOR PTT Routine 07/10/2004 12:55 PM ELECTROMECHANICAL INSPECTOR PROTIME-INR Routine 07/10/2004 12:55 PM ELECTROMECHANICAL INSPECTOR BASIC METABOLIC PANEL Routine 07/10/2004 12:55 PM ELECTROMECHANICAL INSPECTOR documented in this encounter Results * CBC WITH DIFFERENTIAL (07/10/2004 12:55 PM ELECTROMECHANICAL INSPECTOR) WBC 6.9 4.5 - 11.0 K/ul INTERFACE SYSTEM RBC 4.89 4.60 - 6.20 Mil/ul INTERFACE SYSTEM HEMOGLOBIN 14.1 14.0 - 18.0 g/dL INTERFACE SYSTEM HEMATOCRIT 44.2 41.0 - 53.0 % INTERFACE SYSTEM MCV 90.4 84.0 - 103.0 Fl INTERFACE SYSTEM MCH 28.8 27.0 - 34.0 pg INTERFACE SYSTEM MCHC 31.9 30.0 - 35.0 g/dL INTERFACE SYSTEM RDW 13.2 11.0 - 14.5 percent(in active) INTERFACE SYSTEM PLATELETS 248 140 - 440 K/ul INTERFACE SYSTEM MPV 10.7 8.9 - 12.8 Fl INTERFACE SYSTEM NEUTROPHILS 63.5 42.2 - 75.2 percent(in active) INTERFACE SYSTEM LYMPHOCYTES 28.3 24.0 - 44.0 percent(in active) INTERFACE SYSTEM MONOCYTES 4.2 2.0 - 10.0 percent(in active) INTERFACE SYSTEM EOSINOPHILS 3.6 0.0 - 7.0 % INTERFACE SYSTEM BASOPHILS 0.4 0.0 - 1.0 percent(in active) INTERFACE SYSTEM NEUTROPHIL ABSOLUTE 4.4 2.0 - 8.0 K/uL INTERFACE SYSTEM LYMPHOCYTE ABSOLUTE 1.9 1.2 - 4.0 K/ul INTERFACE SYSTEM MONOCYTE ABSOLUTE 0.3 0.1 - 0.6 K/ul INTERFACE SYSTEM EOSINOPHIL ABSOLUTE 0.3 0.0 - 0.7 K/ul INTERFACE SYSTEM BASOPHILS ABSOLUTE 0.0 0.0 - 0.2 K/ul INTERFACE SYSTEM 07/10/2004 12:5 5 PM ELECTROMECHANICAL INSPECTOR Josué Campbell MD HEMATOLOGY ORDERABLES Connie l Result INTERFACE SYSTEM Refer to clinic/hospital department * PTT (07/10/2004 12:55 PM ELECTROMECHANICAL INSPECTOR) Pathologist [facility] PTT 28.2 24.3 - 37.5 Secs INTERFACE SYSTEM Comment:Therapeutic Range: 07/10/2004 12:5 5 PM ELECTROMECHANICAL INSPECTOR Josué Campbell MD HEMATOLOGY ORDERABLES Connie l Result INTERFACE SYSTEM Refer to clinic/hospital department * PROTIME-INR (07/10/2004 12:55 PM ELECTROMECHANICAL INSPECTOR) PROTIME 13.2 12.4 - 14.9 Secs INTERFACE SYSTEM Comment: As of 03 note change in normal range. INR 1.0 INTERFACE SYSTEM Comment: Expected Values for INR: DVT/PE ?Goal INR 2.5; range 2.0 - 3.0 Valve Replacement ? Tissue ? Goal INR 2.5; range 2.0 - 3.0 ? Mechanical ? Goal INR 3.0; range 2.5 - 3.5 POST-CO ? Goal INR 2.5; range 2.0 - 3.0 or Goal 3.0; range 2.5 - 3.5 Atrial Fibrillation ? Goal INR 2.5; range 2.0 - 3.0 Ischemic Stroke ? Goal INR 2.5; range 2.0 - 3.0 For additional information see ?? Guidelines for Anticoagulation available from the pharmacy [facility]. ?? 07/10/2004 12:5 5 PM ELECTROMECHANICAL INSPECTOR us Josué Campbell MD HEMATOLOGY ORDERABLES Connie fitzgerald Result INTERFACE SYSTEM Refer to clinic/hospital department * (ABNORMAL) BASIC METABOLIC PANEL (07/10/2004 12:55 PM ELECTROMECHANICAL INSPECTOR) GLUCOSE 241(H) 70 - 110 mg/dL INTERFACE SYSTEM BUN 11 9 - 20 mg/dL INTERFACE SYSTEM CREATININE 0.9 0.7 - 1.5 mg/dL (inactive) INTERFACE SYSTEM SODIUM 141 136 - 145 mEq/L INTERFACE SYSTEM POTASSIUM 4.1 3.5 - 5.0 mEq/L INTERFACE SYSTEM CHLORIDE 102 95 - 110 mEq/L INTERFACE SYSTEM CO2 30 22 - 32 mmol/l INTERFACE SYSTEM ANION GAP 13 9 - 20 mEq/L INTERFACE SYSTEM OSMOLALITY, CALCULATED 297(H) 275 - 295 mOsm/Kg INTERFACE SYSTEM CALCIUM 8.7 8.4 - 10.5 mg/dL INTERFACE SYSTEM 07/10/2004 12:5 5 PM ELECTROMECHANICAL INSPECTOR Josué Campbell MD CHEMISTRY ORDERABLES Final Result Performing Organization Address [facility] Co de Phone Number INTERFACE SYSTEM Refer to clinic/hospital department * CARDIAC ENZYMES (07/10/2004 12:55 PM ELECTROMECHANICAL INSPECTOR) CKMB <0.7 0.0 - 5.5 ng/mL INTERFACE SYSTEM TROPONIN I 0.0 0.0 - 1.5 ng/mL INTERFACE SYSTEM Comment: Expected Range: Normal ? 0.0 - 1.5 ng/ml Borderline 1.6 - 4.4 ng/ml Positive ? > = 4.5 ng/ml 07/10/2004 12:5 5 PM ELECTROMECHANICAL INSPECTOR Josué Campbell MD CHEMISTRY ORDERABLES Final Result Performing Organization Address [facility] Phone Number INTERFACE SYSTEM Refer to clinic/hospital department documented in this encounter Visit Diagnoses Diagnosis Chest pain, unspecified- Primary documented in this encounter Care Teams Rn Urgent Care Relationship Specialty Start Date End Date Abraham Painting DO PCP - General Family Practice 12/21/18 documented as of this encounter
--- OUTSIDE RECORDS SUMMARY | 2024-07-10 12:31 | XMS_ITS | Encounter Summary ---
Author Organization [facility] Address [address] [place] [address] Care Team Providers Care Service Desk Agent Name Role Phone Abraham Painting DO Primary Care Provid er Unavailable Encounter Details Date Type Department Care Team (Late st Contact Info) Description 04/14/2003 Outpatient Historical 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
--- OUTSIDE RECORDS SUMMARY | 2024-07-10 12:31 | XMS_ITS | Patient Health Record ---
Author Organization [facility] Address [address] [address] Care Team Providers Care Cdl Dedicated Truck Driver Name Role Phone Leonard Friaskim Koch [phone] Allergies Allergen (clinical drug ingredient) Drug/Non Drug Allergy documented on EMR Reaction Allergy Type Onset Date Status contrast dye (uncoded) Unknown Allergy Active Reason For Referral No Information Medications Medication SIG (Take, Route, Fr equency, Duration) Notes Start Date End Date Status Allopurinol Active Lantus Active Ozempic Active Aspirin Active Atorvastatin Calcium Active amLODIPine Besylate Active Jardiance Active Levothyroxine Sodium Active Social History Sex Assigned At : Social History Observation Description Sex Assigned At Male Vital Signs Heart Rate 82 /min 01/26/2024 Temperature 98.6 degrees Fahrenheit 01/26/2024 Height-cm 190.5 cm 01/26/2024 Oximetry 98 % 01/26/2024 Blood pressure diastolic 88 mm Hg 01/26/2024 Weight-kg 121.56 kg 01/26/2024 Height 75 in 01/26/2024 Blood pressure systolic 142 mm Hg 01/26/2024 Weight 268 lbs 01/26/2024 BMI 33.49 kg/m2 01/26/2024 Encounters Encounter Location Date Provider Diagnosis [facility] [address] [address] 01/26/2024 Kyung Frias Acute otitis externa of both ears, unspecified type H60.503 Assessments Encounter Date Diagnosis (ICD Code) Assessment Notes Treatment Notes Treatment Clinical Notes Section Notes 01/26/2024 Acute otitis externa of both ears, unspecified type (ICD-10 - H60.503) Swimmer's Ear: Care Instructions material was printed Plan Of Treatment No Information Insurance Providers Payer Name Payer Address Payer Phone Subscriber Number Group Number Insured Name Patient Relationship to Insured Coverage Start Date Coverage End Date [facility] [address] [place] [address] [id number] Janes Sharma Self - patient is the insured 4 4 Medical (General) History Medical History History ICD Code IDDM HTN Gout HTN
--- OUTSIDE RECORDS SUMMARY | 2024-07-10 12:31 | XMS_ITS | Encounter Summary ---
Author Organization [facility] Address [address] [place] [address] Care Team Providers Care Card Grinder Name Role Phone Abraham Painting DO Primary Care Provid er Unavailable Encounter Details Date Type Department Care Team (Late st Contact Info) Description 07/01/2024 External Device Data STL ABSTRACTION Provider, Abstract NO ADDRESS ON FILE Social History Tobacco Use Types Packs/Day Years Used Date Smoking Tobacco: Never Smokeless Tobacco: Former Quit: 04/24/2003 Alcohol Use Standard Drinks/Week Comments No 0 (1 standard drink = 0.6 oz pur e alcohol) Sex and Gender Information Value Date Recorded Sex Assigned at Not on file Legal Sex Male 5:50 AM CLOTH ROLL WINDER Gender Identity Not on file Sexual Orientation Not on file documented as of this encounter Plan of Treatment Upcoming Encounters Date Type Department Care Team (Late st Contact Info) Description 06/27/2025 9:20 AM CLOTH ROLL WINDER Office Visit [facility] Rheumatology- [place] [address] [place] [address] Juan F Poe MD [address] [place] [address] documented as of this encounter Visit Diagnoses Not on filedocumented in this encounter Care Teams Card Grinder Relationship Specialty Start Date End Date Abraham Painting DO PCP - General Family Practice 12/21/18 documented as of this encounter
--- OUTSIDE RECORDS SUMMARY | 2024-07-10 12:31 | XMS_ITS | Encounter Summary ---
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
--- OUTSIDE RECORDS SUMMARY | 2024-07-10 12:31 | XMS_ITS | Encounter Summary ---
Author Organization [facility] Address [address] [place] [address] Care Team Providers Care Field Research Associate Name Role Phone Abraham Painting DO Primary Care Provid er Unavailable Encounter Details Date Type Department Care Team (Late st Contact Info) Description 07/02/2024 External Device Data STL ABSTRACTION Provider, Abstract NO ADDRESS ON FILE Social History Tobacco Use Types Packs/Day Years Used Date Smoking Tobacco: Never Smokeless Tobacco: Former Quit: 04/24/2003 Alcohol Use Standard Drinks/Week Comments No 0 (1 standard drink = 0.6 oz pur e alcohol) Sex and Gender Information Value Date Recorded Sex Assigned at Not on file Legal Sex Male 5:50 AM STUDIO RECEPTIONIST Gender Identity Not on file Sexual Orientation Not on file documented as of this encounter Plan of Treatment Upcoming Encounters Date Type Department Care Team (Late st Contact Info) Description 06/27/2025 9:20 AM STUDIO RECEPTIONIST Office Visit [facility] Rheumatology- [place] [address] [place] [address] Juan F Poe MD [address] [place] [address] documented as of this encounter Visit Diagnoses Not on filedocumented in this encounter Care Teams Field Research Associate Relationship Specialty Start Date End Date Abraham Painting DO PCP - General Family Practice 12/21/18 documented as of this encounter
--- OUTSIDE RECORDS SUMMARY | 2024-07-10 12:31 | XMS_ITS | Encounter Summary ---
Author Organization [facility] Address [address] [place] [address] Care Team Providers Care Subway Guard Name Role Phone Abraham Painting DO Primary Care Provid er Unavailable Encounter Details Date Type Department Care Team (Latest Contact Info) Description 09/08/1997 Outpatient Historical [facility] Dominic Montes MD NO ADDRESS ON FILE Variants of migraine, not elsewhere classified, without mention of intractable migraine without mention of status migrainosus (Primary Dx) Social History Tobacco Use Types Packs/Day Years Used Date Smoking Tobacco: Never Assessed Sex and Gender Information Value Date Recorded Sex Assigned at Not on file 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
--- OUTSIDE RECORDS SUMMARY | 2024-07-10 12:31 | XMS_ITS | Encounter Summary ---
Author Organization [facility] Address [address] [place] [address] Care Team Providers Care Budget Officer Name Role Phone Abraham Painting DO Primary Care Provid er Unavailable Encounter Details Date Type Department Care Team (Late st Contact Info) Description 04/12/2004 Outpatient Historical [facility]ANCELL[facility] ADMISSION Jd Blackmon MD [address] [facility] [address] [place] [address] ADMINISTRTVE ENCOUNT NOS (Primary Dx) Social History Tobacco Use Types Packs/Day Years Used Date Smoking Tobacco: Never Assessed Sex and Gender Information Value Date Recorded Sex Assigned at Not on file 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
--- OUTSIDE RECORDS SUMMARY | 2024-07-10 12:31 | XMS_ITS | Encounter Summary ---
Author Organization [facility] Address [address] [place] [address] Care Team Providers Care City Recorder Name Role Phone Abraham Painting DO Primary Care Provid er Unavailable Encounter Details Date Type Department Care Team (Latest Contact Info) Description 01/27/2004 Outpatient Historical [facility] Imaging Services-[facility] [place] [address] [place] [address] Kike, Jayesh [address] [place] [address] [address] [place] [address] ABDOMINAL PAIN RUQ (Primary Dx) Social History Tobacco Use Types Packs/Day Years Used Date Smoking Tobacco: Never Assessed Sex and Gender Information Value Date Recorded Sex Assigned at Not on file Legal Sex Male 6:12 AM DIDACTIC INSTRUCTOR Gender Identity Not on file Sexual Orientation Not on file documented as of this encounter Plan of Treatment Not on file documented as of this encounter Visit Diagnoses Diagnosis Abdominal pain, right upper quadrant- Primary documented in this encounter Care Teams City Recorder Relationship Specialty Start Date End Date Abraham Painting DO PCP - General Family Practice 12/21/18 documented as of this encounter
--- OUTSIDE RECORDS SUMMARY | 2024-07-10 12:31 | XMS_ITS | Encounter Summary ---
Author Organization [facility] Address 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); Encounter for monitoring allopurinol therapy Social History Tobacco Use Types Packs/Day Years Used Date Smoking Tobacco: Never Smokeless Tobacco: Former Quit: 04/24/2003 Tobacco Cessation:Counseling Given: Not Answered Alcohol Use Standard Drinks/Week Comments No 0 (1 standard drink = 0.6 oz pur e alcohol) Sex and Gender Information Value Date Recorded Sex Assigned at Not on file Legal Sex Male 5:50 AM HEALTH SERVICES ADMINISTRATOR Gender Identity Not on file Sexual Orientation Not on file documented as of this encounter Last Filed Vital Signs Vital Sign Reading Time Taken Comments Blood Pressure 135/90 06/28/2024 9:20 AM HEALTH SERVICES ADMINISTRATOR Pulse 58 06/28/2024 9:20 AM HEALTH SERVICES ADMINISTRATOR Temperature - - Respiratory Rate - - Oxygen Saturation 97% 06/28/2024 9:20 AM HEALTH SERVICES ADMINISTRATOR Inhaled Oxygen Concentration - - Weight 132.5 kg (292 lb) 06/28/2024 9:20 AM HEALTH SERVICES ADMINISTRATOR Height 190.5 cm (6' 3 ) 06/28/2024 9:20 AM HEALTH SERVICES ADMINISTRATOR Body Mass Index 36.5 06/28/2024 9:20 AM HEALTH SERVICES ADMINISTRATOR documented in this encounter Progress Notes * Juan F Poe MD - 06/28/2024 9:31 AM CST [facility] Rheumatology PCP: Abraham Painting DO Subjective: Chief Complaint: 1. Gout- follow up Janes Sharma is an 63 y.o. male Patient was initially seen in clinic in February 2018 for crystal proven gout. He also has significant tophi Patient comes in for follow-up. He continues to take allopurinol 500 mg/day. He reports that he tolerates medication well. No new mouth sores rashes. Most recent liver function test has been doing well. He reports that he still gets some flareups. He still has a tophi that slowly getting better on theknees. He takes prednisone 50 mg for a day or 2 and then it resolves. This has been his typical pattern. He reports that he just has a flareup once a month or so. Rheum hx: Patient is previously followed with Dr. Garvey rheumatology at [facility]. He is transferring care here. Patient's gout is crystal proven from a tophi that was removed from the right ear. He currently is on allopurinol 300 mg/day. Patient reports that he has had gout for several years. He describes his gout as a wondering arthritis. Will affect the toes, ankles, knees, wrists, fingers. He has had tophi above the knees, ears, and the fingers. Usually will have a prodrome for a few hours, then will get severe redness and swelling in the joint. He reports that the pain is 10/10. He reports that he has had passed out because the pain was so severe. There are times it will be resistant to steroids or anti-inflammatories. Currently is on allopurinol 300 mg/day. For the last several years he has been on and off allopurinol. He has not had a severe attack in the last few months, has been on allopurinol during that time. It seems that over the last several years he has had some other ongoing health problems that have been unable to be diagnosed. He has had some syncopal episodes. He denies any preceding palpitations,dizziness, or other focal neurological symptoms. He reports that he has had MRIs and CTs of the head have been negative. It seems that he will have some personality changes around these episodes. He has poor memory concerning these episodes. He reports that he will treat his badly and speak aggressively. He seen neurology does not, with a good diagnosis. He recently seen a thread singer at [facility] in [place]. The thread singer had considered possibly palindromic rheumatism, but unlikely. Also considered Whipple's disease given episodes of neurological change, malaise, flulike symptoms, arthralgias, and abdominal bloating. There was suggestion to get a small bowel biopsy. Patient because of financial reasons was unable to do that. It seemsthat he has been on empiric antibiotics through PCP for the last 3 months. Patient reports that these neurological symptoms and malaise symptoms have gotten better. PMHX: Tick fever Ataxia Diabetic neuropathy HLD HTN Hypothyroidism Obesity KRIS TIA DM2 Past Surgical History: Procedure Laterality Date HX BLEPHAROPLASTY HX CHOLECYSTECTOMY HX DENTAL SURGERY Family History Problem Relation Name Age of Onset Lung Cancer Father Heart Disease Father Breast Cancer Mother Kidney Disease Mother Hypertension Mother Heart Disease Mother Diabetes Paternal Uncle Current Outpatient Medications Medication Sig Dispense Refill liraglutide (Victoza 3-Fredi) 0.6 mg/0.1 mL (18 mg/3 mL) Inject 0.6 mg by subcutaneous injection daily. insulin glargine (Lantus U-100 Insulin) 100 unit/mL vial Inject 34 Units by subcutaneous injection daily. predniSONE (DELTASONE) 20 mg tablet Take 1 Tablet (20 mg) by mouth daily. As needed for gout flairTake 1 Tablet (20 mg) by mouth daily As needed for gout flair. 90 Tablet 0 allopurinoL (ZYLOPRIM) 300 mg tablet TAKE 1 TABLET BY MOUTH ONCE DAILY 90 Tablet 1 allopurinoL (ZYLOPRIM) 100 mg tablet TAKE 2 TABLETS BY MOUTH ONCE DAILY 180 Tablet 1 Maximum D3 325 mcg (13,000 unit) Capsule TAKE 1 CAPSULE BY MOUTH ONCE A WEEK [DISCONTINUED] predniSONE (DELTASONE) 20 mg tablet Take 1 Tablet (20 mg) by mouth daily. As needed for gout flairTake 1 Tablet (20 mg) by mouth daily As needed for gout flair. 90 Tablet 0 [DISCONTINUED] allopurinoL (ZYLOPRIM) 300 mg tablet TAKE 1 TABLET BY MOUTH ONCE DAILY 90 Tablet 1 [DISCONTINUED] allopurinoL (ZYLOPRIM) 100 mg tablet TAKE 2 TABLETS BY MOUTH ONCE DAILY 180 Tablet 1 doxycycline hyclate (VIBRAMYCIN) 100 mg capsule Take 100 mg by mouth 2 times daily. lisinopril (PRINIVIL) 20 mg tablet Take 1 Tablet (20 mg) by mouth daily. 30 Tablet 1 levothyroxine 100 mcg tablet Take 100 mcg by mouth daily early learning teacher. topiramate (TOPAMAX) 50 mg tablet Take 50 mg by mouth daily . celecoxib (CeleBREX) 200 mg capsule Take 200 mg by mouth daily . loratadine (CLARITIN) 10 mg tablet Take 10 mg by mouth daily. aspirin (ECOTRIN EC) 81 mg Tablet, Delayed Release (E.C.) Take 81 mg by mouth daily. OTHER Provider please include Medication name, dose, route and frequency . No current facility-administered medications for this visit. 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 Social Needs Financial resource strain: Not on file Food insecurity Worry: Not on file Inability: Not on file Transportation needs Medical: Not on file Non-medical: Not on file Tobacco Use Smoking status: Never Smoker Smokeless tobacco: Former User Types: Chew Substance and Sexual Activity Alcohol use: No Drug use: No Sexual activity: Not on file Lifestyle Physical activity Days per week: Not on file Minutes per session: Not on file Stress: Not on file Relationships Social connections Talks on phone: Not on file Gets together: Not on file Attends mu-ism service: Not on file Active member of club or organization: Not on file Attends meetings of clubs or organizations: Not on file Relationship status: Not on file Intimate partner violence Fear of current or ex partner: Not on file Emotionally abused: Not on file Physically abused: Not on file Forced sexual activity: Not on file Other Topics Concern Not on file Social History Narrative Not on file 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 Review of Systems 10 point ROS was performed and all negative except that mentioned in HPI Objective: BP (!) 135/90 (BP Location: Right arm, Patient Position (BP): Sitting, BP Cuff Size: Adult) Pulse(!) 58 Ht 6' 3 (1.905 m) Wt 132.5 kg (292 lb) SpO2 97% BMI 36.50 kg/m?? Body surface area is 2.72 meters squared. General: male in no apparent distress. HEENT: VICENTE, EOMI. Conjunctiva and sclerae were non-injected Neck: Good range of motion. Lungs: Even and unlabored. Clear to ausculation CV: Regular rate and rhythm Skin: No rashes or ulcers seen Neuro: AAOx3. Muscle strength 5/5 throughout. Neurological examination non- focal. Gait was normal. MSK: Minimal tophi over the knees and the shins. No new active synovitis or swelling of the hands or thefeet. Easily gets up and out of the exam table Imaging No results found for this or any previous visit. Lab Review Lab Results Component Value Date/Time WBC 9.9 03/25/2019 08:41 AM HGB 16.2 03/25/2019 08:41 AM HCT 49.0 03/25/2019 08:41 AM PLT 287 03/25/2019 08:41 AM MCV 90.1 03/25/2019 08:41 AM ALT 24 06/16/2020 09:11 AM AST 14 06/16/2020 09:11 AM NA 140 06/16/2020 09:11 AM K 4.4 06/16/2020 09:11 AM CL 106 06/16/2020 09:11 AM CO2 25 06/16/2020 09:11 AM CREAT 1.26 (H) 06/16/2020 09:11 AM BUN 16 06/16/2020 09:11 AM TSH 3.01 05/08/2018 09:58 AM INR 1.0 07/10/2004 12:55 PM X-rays of the elbows November 2017 Soft tissue swelling adjacent to both olecranon process compatible with bursitis. Subtle hypertrophic changes humeral epicondyles and ulnohumeral joints bilaterally X-rays of the feet Degenerative arthritis both ankles and scattered in the feet osteochondral defect in left medial talar dome. Faint densities adjacent to the lateral malleoli compatible with remote trauma. Probable p.o. tract in the distal right fibula. Soft tissue swelling about the ankles ankles calcaneal spurs X-rays of the hands November 2017 Degenerative arthritis involving a few joints of both hands and wrists most marked at the left first IP joint. Soft tissue calcifications about the left first IP joint likely due to old trauma. Mild bilateral ulnar positive variance tiny metallic foreign body distal left forearm September 2017, positive SMITA 1:80 Sedimentation rate 12 May 2016 uric acid 7.3 White blood cell count 12.4 Hemoglobin 12.9 Platelets 290 ESR 26 ALT 48 High sensitivity CRP 5.2 SMITA May 1999 17- CCP negative CK within normal limits Negative double-stranded DNA Negative hepatitis C screen Negative SSA Negative Whipple PCR Uric acid November 2017 8.3 Per note, at rest SMITA profile negative Assessment: Plan: 1. Idiopathic chronic gout of multiple sites with tophus 2. Encounter for monitoring allopurinol therapy 3. Prednisone use Last uric acid, that he brought in from June 2024 was 5.4 - Tophi getting smaller I will likely resolve within the next few years - For now continue allopurinol 500 mg/day - He has prednisone that he can take as needed for flareups. Discussed using them judiciously -Checking CBC liver uric acid in 6 months when he returns - At this point no new allopurinol toxicity, his most recent liver function test and June 2024 showed normal liver parameters - No signs of rashes or hypersensitivity to allopurinol Return to clinic in 1 year with labs or sooner if new issues TH SERVICES ADMINISTRATOR * Sharath Pressley - 06/28/2024 9:21 AM CST Patient follow-up. Patient states no issues at this time. Patient will need prednisone refilled. TH SERVICES ADMINISTRATOR documented in this encounter Plan of Treatment Upcoming Encounters Date Type Department Care Team (Late st Contact Info) Description 06/27/2025 9:20 AM HEALTH SERVICES ADMINISTRATOR Office Visit [facility] Rheumatology- [facility] [address] [place] [address] Juan F Poe MD [address] [place] [address] documented as of this encounter Visit Diagnoses Diagnosis Idiopathic chronic gout of multiple sites with tophus- Primary Chronic gouty arthropathy with tophus (tophi) Encounter for monitoring allopurinol therapy Encounter for therapeutic drug monitoring documented in this encounter Care Teams Curb Worker Relationship Specialty Start Date End Date Abraham Painting DO PCP - General Family Practice 12/21/18 documented as of this encounter
--- OUTSIDE RECORDS SUMMARY | 2024-07-10 12:31 | XMS_ITS | Encounter Summary ---
Author Organization [facility] Address [address] [place] [address] Care Team Providers Care Control Tower Radio Operator Name Role Phone Abraham Painting DO Primary Care Provid er Unavailable Encounter Details Date Type Department Care Team (Latest Contact Info) Description 03/14/2003 Outpatient Historical [facility] Imaging Services [address] [place] [phone] Lalo Acosta MD [address] [place], [place] [id number] MALE GENITAL DIS NEC (Primary Dx) Social History Tobacco Use Types Packs/Day Years Used Date Smoking Tobacco: Never Assessed Sex and Gender Information Value Date Recorded Sex Assigned at Not on file Legal Sex Male 6:12 AM ENVELOPE CUTTER Gender Identity Not on file Sexual Orientation Not on file documented as of this encounter Plan of Treatment Not on file documented as of this encounter Visit Diagnoses Diagnosis Other specified disorder of male genital organs(608.89)- Primary Other specified disorder of male genital organs documented in this encounter Care Teams Control Tower Radio Operator Relationship Specialty Start Date End Date Abraham Painting DO PCP - General Family Practice 12/21/18 documented as of this encounter
--- OUTSIDE RECORDS SUMMARY | 2024-07-10 12:32 | XMS_ITS | Patient Health Record ---
Author Organization [facility] Address [address] [place] [address] Support Name Relationship Address Phone Janes Sharma Guarantor Unknown [phone] Reason For Referral No Information Plan Of Treatment No Information
--- OUTSIDE RECORDS SUMMARY | 2024-07-10 12:32 | XMS_ITS | Encounter Summary ---
Author Organization [facility] Address [address] [place] [address] Care Team Providers Care Php Consultant Name Role Phone Abraham Painting DO Primary Care Provid er Unavailable Encounter Details Date Type Department Care Team (Latest Contact Info) Description 07/20/2004 Outpatient [facility] [address] [place] [phone] Lalo Acosta MD [address] [place], [place] [id number] CHEST PAIN NOS (Primary Dx) Social History Tobacco Use Types Packs/Day Years Used Date Smoking Tobacco: Never Assessed Sex and Gender Information Value Date Recorded Sex Assigned at Not on file Legal Sex Male 6:12 AM CASE MANAGEMENT SOCIAL WORKER Gender Identity Not on file Sexual Orientation Not on file documented as of this encounter Plan of Treatment Not on file documented as of this encounter Visit Diagnoses Diagnosis Chest pain, unspecified- Primary documented in this encounter Care Teams Php Consultant Relationship Specialty Start Date End Date Abraham Painting DO PCP - General Family Practice 12/21/18 documented as of this encounter
--- OUTSIDE RECORDS SUMMARY | 2024-07-10 12:32 | XMS_ITS | Encounter Summary ---
Author Organization [facility] Address [address] [place] [address] Care Team Providers Care Clinical Quality Assurance Specialist Name Role Phone La SalleAbraham DO Primary Care Provid er Unavailable Encounter Details Date Type Department Care Team (Late st Contact Info) Description 09/27/2007 Outpatient Historical [facility] Endoscopy [place] [address] [place] [address] James Santos MD [id number] [facility] Disability Determination Services [place], [place] [id number] James Clements MD [address] [facility] [address] [place] [address] Benign Neoplasm of Colon; DM w/o Complication Type II (CMS/HCC); Unspecified Essential Hypertension; Tobacco Use Disorder Social History Tobacco Use Types Packs/Day Years Used Date Smoking Tobacco: Never Assessed Sex and Gender Information Value Date Recorded Sex Assigned at Not on file Legal Sex Male 6:12 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 Anatomic Pathology Dept ?[address] [place] ??[address] ?Phone: ? Fax: ? Patient: ??EDITHJANES W ?Accn No: ??[id number] ?Collected: ??10/01/2007 ??9:46:00 AM ? SURGICAL PATHOLOGY FINAL REPORT ?Diagnosis ? A. ??Colon, transverse polyp, biopsy ? - adenomatous polyp(s), three fragments. ? Rich Mcpherson MD ? (Electronically signed by) ? Verified: 10/03/07 ? PKT/TKB ?Clinical Information ? Polyp. ? Specimen Source ? AColon, TRANSVERSE ? Microscopic Description ? Microscopic examination was performed. ?Gross Description ? Part A. ??Submitted in a container of formalin labelled Edith - #1 ? polyp, transverse colon are three cummings tissue fragments measuring up to 0.5 ? cm. ??The specimen is submitted entirely in A1. ? DLS/WLS INTERFACE SYSTEM 10/01/2007 9:46 AM CDT us James Clements MD PATHOLOGY/CYTOLOGY ORDERABL ES Final Result INTERFACE SYSTEM Refer to clinic/hospital department documented in this encounter Visit Diagnoses Diagnosis Benign neoplasm of colon Type II or unspecified type diabetes mellitus without mention of complication, not stated as uncontrolled (CMS/HCC) Type II or unspecified type diabetes mellitus without mention of complication, not stated as uncontrolled Unspecified essential hypertension Tobacco use disorder documented in this encounter Care Teams Clinical Quality Assurance Specialist Relationship Specialty Start Date End Date Abraham Painting DO PCP - General Family Practice 12/21/18 documented as of this encounter
--- OUTSIDE RECORDS SUMMARY | 2024-07-10 12:32 | XMS_ITS | Encounter Summary ---
Author Organization [facility] Address [address] [place] [address] Care Team Providers Care Numerical Control Machine Operator Name Role Phone Abraham Painting DO Primary Care Provid er Unavailable Encounter Details Date Type Department Care Team (Latest Contact Info) Description 07/15/2004 Outpatient Historical [facility] Cardiology [facility] [address] [place] [phone] Booker Azar MD [address] [address] [place] [address] PRECORDIAL PAIN (Primary Dx) Social History Tobacco Use Types Packs/Day Years Used Date Smoking Tobacco: Never Assessed Sex and Gender Information Value Date Recorded Sex Assigned at Not on file Legal Sex Male 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
--- OUTSIDE RECORDS SUMMARY | 2024-07-10 12:32 | XMS_ITS | Encounter Summary ---
Author Organization [facility] Address [address] [place] [address] Care Team Providers Care Focuser Name Role Phone Abraham Painting DO Primary Care Provid er Unavailable Encounter Details Date Type Department Care Team (Latest Contact Info) Description 08/05/1997 Outpatient Historical [facility] Dominic Montes MD NO ADDRESS ON FILE Central origin vertigo (Primary Dx) Social History Tobacco Use Types Packs/Day Years Used Date Smoking Tobacco: Never Assessed Sex and Gender Information Value Date Recorded Sex Assigned at Not on file Legal Sex Male 6:12 AM CODING CLERK Gender Identity Not on file Sexual Orientation Not on file documented as of this encounter Plan of Treatment Not on file documented as of this encounter Visit Diagnoses Diagnosis Central origin vertigo- Primary Vertigo of central origin documented in this encounter Care Teams Focuser Relationship Specialty Start Date End Date Abraham Painting DO PCP - General Family Practice 12/21/18 documented as of this encounter
--- OUTSIDE RECORDS SUMMARY | 2024-07-10 12:32 | XMS_ITS | Clinical Summary ---
Author Organization [facility] Address [address] [facility] Attn: Epic Prelude ADT SANDY ELIZALDE [address] Care Team Providers Care Plastics Bench Mechanic Name Role Phone SilexAbraham DO Primary Care Provid er Unavailable Allergies Active Allergy Reactions Criticality Noted Date Comments Iodinated Contrast Media Anaphylaxis High 06/11/2018 Iodine Other (See Comments) 03/09/2018 Swells throat Medications insulin glargine (LANTUS) 100 unit/mL vial Inject 34 Units by subcutaneous injection daily. 06/16/19 21 Active cholecalcifero l, vitamin D3, (Maximum D3) 325 mcg (13,000 unit) Capsule TAKE 1 CAPSULE BY MOUTH ONCE A WEEK 09/10/19 20 Active aspirin (ECOTRIN EC) 81 mg Tablet, Delayed Release (E.C.) Take 81 mg by mouth daily. 03/09/20 18 Active loratadine (CLARITIN) 10 mg tablet Take 10 mg by mouth daily. 03/09/20 18 Active OTHER Provider please include Medication name, dose, route and frequency . 03/09/20 18 Active levothyroxine 100 mcg tablet Take 100 mcg by mouth daily event specialist. 03/09/20 18 Active topiramate (TOPAMAX) 50 mg tablet Take 50 mg by mouth daily . 03/09/20 18 Active semaglutide (OZEMPIC SUBCUT) Inject 2 mg by subcutaneous injection every 7 days. Inject 2mg by subq injection once weekly Active allopurinoL (ZYLOPRIM) 100 mg tabletIndicati ons:Idiopathic chronic gout of multiple sites with tophus Take 2 Tablets (200 mg) by mouth daily. 180 Tablet 2 06/29/19 25 Active allopurinoL (ZYLOPRIM) 300 mg tabletIndicati ons:Idiopathic chronic gout of multiple sites with tophus Take 1 Tablet (300 mg) by mouth daily. 90 Tablet 3 06/29/19 25 Active predniSONE (DELTASONE) 50 mg tablet Take 1 Tablet (50 mg) by mouth 1 time daily as needed (gout flare up). Call MD if need more than 4 consecutive days 30 Tablet 06/29/19 25 Active allopurinoL (ZYLOPRIM) 100 mg tabletIndicati ons:Idiopathic chronic gout of multiple sites with tophus Take 2 Tablets (200 mg) by mouth daily. 180 Tablet 2 06/23/19 24 025 Discontinu ed(Alterna te therapy prescribed ) allopurinoL (ZYLOPRIM) 300 mg tabletIndicati ons:Idiopathic chronic gout of multiple sites with tophus Take 1 Tablet (300 mg) by mouth daily. 90 Tablet 3 06/23/19 24 025 Discontinu ed(Alterna te therapy prescribed ) predniSONE (DELTASONE) 50 mg tablet Take 1 Tablet (50 mg) by mouth 1 time daily as needed (gout flare up). 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 [address] [address] Juan F Poe MD Idiopathic chronic gout of multiple sites with tophus (Primary Dx); Encounter for monitoring allopurinol therapy 06/18/2024 External Device Data STL ABSTRACTION Provider, Abstract 05/21/2024 External Device Data STL ABSTRACTION Provider, Abstract 05/15/2024 External Device Data STL ABSTRACTION Provider, Abstract 05/15/2024 External Device Data STL ABSTRACTION Provider, Abstract 05/08/2024 External Device Data STL ABSTRACTION Provider, Abstract from Last 3 Months Family History Medical History Relation Name Comments Heart Disease Father Lung Cancer Father Breast Cancer Mother Heart Disease Mother Hypertension Mother Kidney Disease Mother Diabetes Paternal Uncle Relation Name Status Comments Father Mother Alive Paternal Uncle Social History Tobacco Use Types Packs/Day Years Used Date Smoking Tobacco: Never Smokeless Tobacco: Former Quit: 04/24/2003 Tobacco Cessation:Counseling Given: Not Answered Alcohol Use Standard Drinks/Week Comments No 0 (1 standard drink = 0.6 oz pur e alcohol) Sex and Gender Information Value Date Recorded Sex Assigned at Not on file Legal Sex Male 5:50 AM ADJUNCT TRAINER Gender Identity Not on file Sexual Orientation Not on file Last Filed Vital Signs Vital Sign Reading Time Taken Comments Blood Pressure 135/90 06/28/2024 9:20 AM ADJUNCT TRAINER Pulse 58 06/28/2024 9:20 AM ADJUNCT TRAINER Temperature 36.7 ??C (98.1 ??F) 05/08/2018 9:41 AM CS T Respiratory Rate 18 06/11/2018 2:12 PM ADJUNCT TRAINER Oxygen Saturation 97% 06/28/2024 9:20 AM ADJUNCT TRAINER Inhaled Oxygen Concentration - - Weight 132.5 kg (292 lb) 06/28/2024 9:20 AM ADJUNCT TRAINER Height 190.5 cm (6' 3 ) 06/28/2024 9:20 AM ADJUNCT TRAINER Body Mass Index 36.5 06/28/2024 9:20 AM ADJUNCT TRAINER Plan of Treatment Upcoming Encounters Date Type Department Care Team (Late st Contact Info) Description 06/27/2025 9:20 AM ADJUNCT TRAINER Office Visit [facility] Rhe[facility]- [facility] [address] [place] [address] Juan F Poe MD [address] [place] [address] Health Maintenance Due Date Last Done Comments DIABETES ANNUAL FOOT EXAM 1976 DIABETES ANNUAL RETINAL EXAM 1976 DTAP/TDAP/TD VACCINES (1 - Tdap) 1977 PNEUMOCOCCAL VACCINE 50+ YEA RS (1 of 2 - PCV) 1977 FIT-DNA Q 3 years 07/26/2003 FIT/FOBT Q 1 year 07/26/2003 Flex Sig/CT Colonography Q 5 years 07/26/2003 ZOSTER VACCINE (1 of 2) 2008 COLORECTAL SCREENING 09/30/2017 10/01/2007 Colorectal Cancer Screening 09/30/2017 RSV VACCINE (60+ or ) (1 - Risk 60-74 years 1-dose series) 2018 INFLUENZA VACCINE (#1) 2023 06/11/2018 DIABETES HBA1C Q 6 MONTHS 12/20/2023 06/21/2023, [place] Prev entative Visit/Annual Wellness Visit 04/24/2024 DIABETES MICROALBUMIN ANNUAL SCREEN 06/21/202406/21, 11/11/2022 LDL CHOLESTEROL ANNUAL 06/21/2024 , 11/11/2022, 10/15/2021 Procedures Procedure Name Priority Date/Time Associated Diagnosis Comments MICROALBUMIN/CREATININ E RATIO, RANDOM UR Routine 06/21/2023 LIPID PANEL Routine 06/21/2023 HEMOGLOBIN A1C Routine 06/21/2023 from Last 3 Months or Most Recently Relevant to Health Maintenance Results * MICROALBUMIN/CREATININE RATIO, RANDOM UR (06/21/2023) ABSTRACTED MICROALBUMIN,URI NE 32.0 ABSTRACTED CREATININE, URINE ABSTRACTED MICROALBUMIN/CRE ATININE RATIO, URINE Urine URINE SPECIMEN OBTAINED BY CLEAN CATCH PROCEDURE / Unknown 06/21/2023 us Abstract Provider URINE ORDERABLES Final Result * HEMOGLOBIN A1C (06/21/2023) ABSTRACTED HGB A1C 8.1 Blood 06/21/2023 us Abstract Provider CHEMISTRY ORDERABLES Final Res ult * LIPID PANEL (06/21/2023) ABSTRACTED CHOLESTEROL 116 ABSTRACTED TRIGLYCERIDE 173 ABSTRACTED HDL 34 ABSTRACTED LDL CALCULATED 47 Blood 06/21/2023 us Abstract Provider CHEMISTRY ORDERABLES Final Res ult from Last 3 Months or Most Recently Relevant to Health Maintenance Insurance [employer] PPO MCR Care Teams Plastics Bench Mechanic Relationship Specialty Start Date End Date Abraham Painting DO PCP - General Family Practice 12/21/18
--- OUTSIDE RECORDS SUMMARY | 2024-07-10 12:32 | XMS_ITS | Clinical Summary ---
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 Active topiramate (TOPAMAX) 50 mg tablet Take 50 mg by mouth daily . Active celecoxib (CeleBREX) 200 mg capsule Take 200 mg by mouth daily . Active loratadine (CLARITIN) 10 mg tablet Take 10 mg by mouth daily. Active aspirin (ECOTRIN EC) 81 mg Tablet, Delayed Release (E.C.) Take 81 mg by mouth daily. Active OTHER Provider please include Medication name, dose, route and frequency . Active doxycycline hyclate (VIBRAMYCIN) 100 mg capsule Take 100 mg by mouth 2 times daily. Active lisinopril (PRINIVIL) 20 mg tablet Take 1 Tablet (20 mg) by mouth daily. 30 Tablet 1 9 Active Maximum D3 325 mcg (13,000 unit) Capsule TAKE 1 CAPSULE BY MOUTH ONCE A WEEK 0 Active liraglutide (Victoza 3-Fredi) 0.6 mg/0.1 mL (18 mg/3 mL) Inject 0.6 mg by subcutaneous injection daily. Active insulin glargine (Lantus U-100 Insulin) 100 unit/mL vial Inject 34 Units by subcutaneous injection daily. Active predniSONE (DELTASONE) 20 mg tabletIndicatio ns:Idiopathic chronic gout of multiple sites with tophus Take 1 Tablet (20 mg) by mouth daily. As needed for gout flairTake 1 Tablet (20 mg) by mouth daily As needed for gout flair. 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 Type 2 diabetes mellitus wit hout complication, with long-term current use of insulin 06/11/2018 Hypothyroidism 06/11/2018 YEISON (generalized anxiety disorder) 06/11/2018 Hypertension 06/11/2018 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 03/09/2018 Family History Medical History Relation Name Comments Heart Disease Father Lung Cancer Father Breast Cancer Mother Heart Disease Mother Hypertension Mother Kidney Disease Mother Diabetes Paternal Uncle Relation Name Status Comments Father Mother Alive Paternal Uncle Social History Tobacco Use Types Packs/Day Years Used Date Smoking Tobacco: Never Smokeless Tobacco: Former Chew Quit: 2003 Alcohol Use Standard Drinks/Week Comments No 0 (1 standard drink = 0.6 oz pur e alcohol) Sex and Gender Information Value Date Recorded Sex Assigned at Not on file Legal Sex Male 6:12 AM LINE RIDER Gender Identity Not on file Sexual Orientation Not on file 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 Not on file Not on file Not on file Last Filed Vital Signs Vital Sign Reading Time Taken Comments Blood Pressure 170/100 06/16/2020 8:50 AM LINE RIDER Pulse 80 06/16/2020 8:08 AM LINE RIDER Temperature 36.7 ??C (98.1 ??F) 05/08/2018 9:41 AM CS T Respiratory Rate 18 06/11/2018 2:12 PM LINE RIDER Oxygen Saturation 96% 06/11/2018 2:12 PM LINE RIDER Inhaled Oxygen Concentration - - Weight 140.2 kg (309 lb) 06/16/2020 8:08 AM LINE RIDER Height 190.5 cm (6' 3 ) 06/16/2020 8:08 AM LINE RIDER Body Mass Index 38.62 06/16/2020 8:08 AM LINE RIDER Plan of Treatment Health Maintenance Due Date Last Done Comments DIABETES ANNUAL FOOT EXAM 1976 DIABETES ANNUAL RETINAL EXAM 1976 DIABETES MICROALBUMIN ANNUAL SCREEN 1976 LDL CHOLESTEROL ANNUAL 1976 DTAP/TDAP/TD VACCINES (1 - Tdap) 1977 PNEUMOCOCCAL VACCINE 50+ YEA RS (1 of 2 - PCV) 1977 FIT-DNA Q 3 years 07/26/2003 FIT/FOBT Q 1 year 07/26/2003 Flex Sig/CT Colonography Q 5 years 07/26/2003 ZOSTER VACCINE (1 of 2) 2008 COLORECTAL SCREENING 09/30/2017 10/01/2007, 10/01/19 08 Colorectal Cancer Screening 09/30/2017 RSV VACCINE (60+ or ) (1 - Risk 60-74 years 1-dose series) 2018 DIABETES HBA1C Q 6 MONTHS 01/22/20202019, 10/17/2018, 05/21/2018 INFLUENZA VACCINE (#1) 2023 06/11/2018 Procedures Procedure Name Priority Date/Time Associated Diagnosis Comments ENDOSCOPY, COLON, SCREENING Routine 10/01/2007 from Last 3 Months or Most Recently Relevant to Health Maintenance Results * ENDOSCOPY, COLON, MEDICARE SCREENING (10/01/2007) Narrative 10/01/2007 A scan was deleted from the Results section by Kristen Holt [[id number]] on 10/02/07 at 10:26 AM (File: [id number]) James Clements MD GI PROCEDURE ORDERABLES Andrea liya from Last 3 Months or Most Recently Relevant to Health Maintenance Insurance [facility] [employer] Care Teams Cpr Instructor Relationship Specialty Start Date End Date Abraham Painting DO PCP - General Family Practice 12/21/18
--- OUTSIDE RECORDS SUMMARY | 2024-07-10 12:32 | XMS_ITS ---
[facility] Address [address] [address] Care Team Providers Care Language Translator Name Role Phone Kyung Frias Unavailable [phone] Allergies Allergen (clinical drug ingredient) Drug/Non Drug Allergy documented on EMR Reaction Allergy Type Onset Date Status contrast dye (uncoded) Unknown Allergy Active REASON FOR VISIT possible ear infection Medications Medication SIG (Take, Route, Frequency, Duration) Notes Start Date End Date Status Allopurinol Active Lantus Active Ozempic Active Jardiance Active Levothyroxine Sodium Active Aspirin Active Atorvastatin Calcium Active amLODIPine Besylate Active Amoxicillin-Pot Clavulanate 875-125 MG 1 tablet Orally every 12 hrs for 10 days 01/26/2024 02/15/2024 Active Ofloxacin 0.3 % 10 drops into affect ed ear Otic Once a day for 7 days 01/26/2024 02/09/2024 Active Social History Sex Assigned At : Social History Observation Description Sex Assigned At Male Vital Signs Temperature 98.6 degrees Fahrenheit 01/26/20 24 Blood pressure systolic 142 mm Hg 01/26/20 24 Blood pressure diastolic 88 mm Hg 024 Heart Rate 82 /min 01/26/2024 Height 75 in 01/26/2024 Weight 268 lbs 01/26/2024 BMI 33.49 kg/m2 01/26/2024 Oximetry 98 % 01/26/2024 Height-cm 190.5 cm 01/26/2024 Weight-kg 121.56 kg 01/26/2024 Encounters Encounter Location Date [facility] [address] [place] [address] 01/26/2024 Kyung Frias Acute otitis externa of both ears, unspecified type H60.503 Assessments Encounter Date Diagnosis (ICD Code) Assessment Notes Treatment Notes Treatment Clinical Notes Section Notes 01/26/2024 Acute otitis externa of both ears, unspecified type (ICD-10 - H60.503) Swimmer's Ear: Care Instructions material was printed Plan Of Treatment Medication Medication Name Sig Start Date Stop Date Notes Amoxicillin-Pot Clavulanate 875-125 MG 1 tablet Orally every 12 hrs for 10 days 01/26/2024 02/15/2024 Ofloxacin 0.3 % 10 drops into affect ed ear Otic Once a day for 7 days 01/26/2024 02/09/2024 Treatment Notes Assessment Notes Acute otitis externa of both ears, unspecified type Swimmer's Ear: Care Instructions materia l was printed Next Appt Details Follow Up: prn, Reason: Progress Notes * Janes SHARMA WDOB: [birth year] (63 yo M)Acc No.[id number]:01/26/2024 Patient:?Janes SHARMA W Provider:?Kyung Frias :1960???Age:63 Y???Sex:Male Min e:01/26/2024 Address:[address] [address] Subjective: * Chief Complaints: * ???Possible ear infection * HPI: ???Transition of Care:? 2-3 weeks sinuses are plugged ?ear pain and d/c ?no st or cough ?using otc claritin ?-- ?last a1c at pcp was 7. * ROS:?General / Constitutional:?Patient denies?fever.?Respiratory:?Patient denies?cough.?Hematology:?Patient denies?swollen glands.? * Medical History:? * Medications:?TakingAspirin A torvastatin Calcium amLODIPine Besylate Jardiance Levothyroxine Sodium Allopurinol Lantus Ozempic Medication List reviewed and reconciled with the patientTaking Aspirin Taking Atorvastatin Calcium Taking amLODIPine Besylate Taking Jardiance Taking Levothyroxine Sodium Taking Allopurinol Taking Lantus Taking Ozempic Medication List reviewed and reconciled with the patient * Allergies:?contrast dyeno[Al russell Verified] Objective: * Vitals:?BP:142/88mm Hg, HR:8 2/min, Temp:98.6F, Oxygen sat %:98%, Wt:268lbs, Wt- k.56 kg, Ht: 75 in, Ht-cm: 190.5 cm, BMI:33.49Index, Body Surface Area: 2.53. * Examination: ???General Examination: ?General appearance:?alert, pleasant, well-nourished and in no acute distress.?Ears:?both ears external canal inflamed .?Oral cavity:?mucosa moist .?Lymph nodes:?no cervical lymphadenopathy .?Heart:?regular rate and rhythm without murmurs, gallops, clicks or rubs.?Lungs:?clear to auscultation bilaterally, with good air movement and no rales, rhonchi or wheezes.?Neurologic:?alert and oriented.? Assessment: * Assessment: 1.?Acute otitis externa of b oth ears, unspecified type - H60.503 (Primary)? Plan: * Treatment: * Procedure Codes:? * Follow Up:?prn * Billing Information: * Visit Code:? 46170 Office Visit, New Pt., Level 2. * Procedure Codes:? * BOX OPERATOR Sign off status: Completed true * Provider:Jerad Frias Date:?01/26/2024 Generated for Fito hampton/Gertrudis/Becka on:?07/10/2024 12:31 PM CDT History and Physical Notes * Examination Category Sub-Category Detail Notes Category Not es General Examination General appearance: alert, p leasant, well-nourished and in no acute distress Ears: both ears external c anal inflamed Heart: regular rate and rhy thm without murmurs, gallops, clicks or rubs Lungs: clear to auscultatio n bilaterally, with good air movement and no rales, rhonchi or wheezes Neurologic: alert and oriented Lymph nodes: no cervical lymphade nopathy Oral cavity: mucosa moist
--- NOTE | 2024-07-10 12:52 | P.PN_ITS ---
Subjective 2 Subjective: No acute vents overnight. Patient continues to have occasional chest pressures. Denies any nausea, vomiting. Blood pressure is better controlled. Seen with multiple family members at bedside. Vitals/I&O/Wt Last Vital Signs Temp 97.8 F 07/10/24 08:00 Pulse 70 07/10/24 12:00 Resp 20 H 07/10/24 12:00 BP 128/79 07/10/24 12:00 Pulse Ox 95 07/10/24 12:00 O2 Del Method Room Air 07/10/24 12:00 07/09/24 07/10/24 07/10/24 22:59 06:59 14:59 Intake Total 240 / 480 500 / 500 Output Total 400 / 400 1575 / 1975 Balance -160 / 80 -1575 / -1495 500 / 500 Weight last 48 hrs Weight 128.639 kg Weight 129.274 kg Weight 127.006 kg Physical Exam 2 Narrative: General: No acute distress, AO x3, morbidly obese HEENT: PERRLA, pupils bilaterally equal and reactive Chest: Normal vesicular breath sounds, no added sounds, equal good air entry bilaterally CVS: S1-S2 regular, soft pansystolic murmur, no tachycardia, no gallops, no rubs Abdomen: Soft, nontender, no organomegaly, bowel sounds present Neuro: No focal deficits, no facial deformity, AO x3, power 5/5 in all limbs Data 07/10/24 03:50 07/10/24 09:15 A&P Assessment and plan (1) Accelerated hypertension: Goal blood pressure less than 140/90 mmHg. Blood pressure is elevated. Patient takes amlodipine 5 mg, enalapril 5 mg at home. For now continue with Coreg 6.25 mg twice daily. Switch to losartan 100 mg oral daily. Add amlodipine 5 mg oral daily. Will uptitrate as for goal blood pressure. IV hydralazine 10 mg every 4 hours as needed for systolic more than 160 mmHg. (2) Unstable angina: Concerning for dyspnea on exertion getting worse over last 1 month. Non-smoker. Sitting family history with father having fatal MA. Cardiac stress test concerning for chika-infarct ischemia. Will consult cardiology. Follow-up echocardiogram. Given milligrams daily, atorvastatin 20 mg daily. Beta-kaylyn as above. Appreciate recent A1c, lipid panel. (3) Type 2 diabetes mellitus with diabetic nephropathy: A1c of 8.3 Continue with Lantus 40 units nightly. Start on sliding scale moderate dose protocol. 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 Medical reconciliation done for nephrotoxic drugs. Monitor renal functions daily for now. (5) KRIS (obstructive sleep apnea): Continue to monitor. Patient noncompliant with CPAP in the past. (6) Positive cardiac stress test: Plan Carb consistent cardiac diet Protonix for PUD prophylaxis Lovenox for DVT prophylaxis Plan for the day: Creatinine today morning 1.3. Patient started on IV fluids with normal saline at 50 cc/h. Care discussed in detail with cardiology team. Plan for repeat BMP in 3 to 4 hours. Trending down plan for cardiac angiogram today. Goal blood pressure less than 140/90 mmHg. Blood pressure is better controlled. Continue with amlodipine 10 mg oral daily, Coreg 6.25 mg twice daily, losartan 100 mg daily. Uptitrate or add low-dose Imdur depending on the blood pressures. Continue with baby aspirin, atorvastatin. Echocardiogram results pending. PDMP PDMP Reviewed: Not Reviewed Attestations 2 Medical Necessity Statement*: Requires further hospitalization for management of unstable angina with positive cardiac stress test, uncontrolled hypertension while further ACS workup is completed and antihypertensives were adjusted. Diagnoses Accelerated hypertension I10 Unstable angina I20.0 Type 2 diabetes mellitus with diabetic nephropathy, with long-term current use of insulin E11.21; Z79.4 Diabetes mellitus penitentiary insulin use: with penitentiary use CKD stage 3 secondary to diabetes E11.22; N18.30 KRIS (obstructive sleep apnea) G47.33 Positive cardiac stress test R94.39
[2024-07-10] MEDS: enoxaparin 40 mg/0.4 mL Syringe SUBCUT (21:21)
[2024-07-10] MEDS: ATORVASTATIN 10 MG TABLET 20 MG PO (21:22)
[2024-07-10] MEDS: sodium chloride 0.45% 1,000 ML 75 ML IV (21:23)
[2024-07-11] VITALS: BP 135/80; PULSE 80; RESP 27; O2SAT 98
[2024-07-11 03:41] LABS: Basophils # 0.1 10^3/uL (0.0-0.1); Basophils % 0.8 %; Eosinophils # 0.4 10^3/uL (0.0-0.8); Eosinophils % 3.9 %; Hematocrit 43.3 % (37-53); Lymphocytes % 20.6 %; Mean Corpuscular HGB Conc 32.8 g/dL (30-55); Mean Corpuscular Hemoglobin 30.3 pg (27-33); Mean Corpuscular Volume 92.3 fl (82-101); Mean Platelet Volume 9.9 fL (7.4-10.4); Monocytes # 0.7 10^3/uL (0.2-0.9); Monocytes % 7.2 %; Neutrophils # 6.53 10^3/uL (1.8-7.7); Neutrophils % 67.1 %; Nucleated Red Blood Cells % 0 %; Platelet Count 244 10^3/cmm (157-399); Red Blood Count 4.69 10^6/uL (3.85-5.65); White Blood Count 9.73 10^3/uL (3.29-11.43)
[2024-07-11 03:57] LABS: Magnesium 1.8 mg/dL (1.7-2.3)
[2024-07-11 04:00] VITALS: BP 154/87; PULSE 67; RESP 16; TEMP 36.9; O2SAT 98
[2024-07-11 04:04] LABS: Alanine Aminotransferase 19 U/L (0-41); Albumin Level 3.3 g/dL (3.5-5.2); Alkaline Phosphatase 111 U/L (40-130); Anion Gap 11.4 (5-19); Aspartate Amino Transferase 14 U/L (0-40); Blood Urea Nitrogen 16 mg/dL (8-23); Calcium 8.7 mg/dL (8.5-10.5); Carbon Dioxide 27 mmol/L (22-29); Chloride 103 mmol/L (98-107); Globulin 3.2 g/dL (1.3-4.6); Glomerular Filtration Rate 60.8 mL/min (90-130); Glucose 167 mg/dL (65-115); Osmolality Calculated 289 mOsm/kg (285-295); Potassium 4.4 mmol/L (3.5-5.1); Sodium 137 mmol/L (136-145); Total Bilirubin 0.6 mg/dL (0.15-1.2); Total Protein 6.5 g/dL (6.6-8.7)
[2024-07-11 05:38] VITALS: PULSE 70
[2024-07-11] MEDS: diphenhydrAMINE 50 mg Capsule PO (05:57)
[2024-07-11] MEDS: levothyroxine 100 mcg Tablet PO (05:57)
--- NOTE | 2024-07-11 06:05 | XACV_ITS ---
Exam Room: 2 Ht: 191 cm Wt: 131 kg BSA: 2.67 m2 Gender: Male : 1960 Any Known Allergies: Other Exam Priority: Routine Procedure(s): Procedure Description: Diagnostic procedure Procedure Description: Left Heart Catheterization Procedure Description: Coronary Angiography Octavio SUTHERLAND; Diagnostic Cath Status: Urgent Diagnostic Findings * Left main is a medium caliber through the nose reveals no lesions. * The left anterior descending artery is a medium caliber vessel which appears to wraparound the LV apex. The proximal LAD was found to have minimal intimal irregularities. The distal LAD was found to have an area of extensive compression causing 50% luminal narrowing. * The left circumflex artery is a medium caliber vessel which also was found to have minimal intimal irregularities with no significant stenotic lesions. * The right coronary artery is a medium to large caliber dominant vessel which also was found to have no significant stenotic lesions. Minimal intimal irregularities are noted in the proximal segment. Conclusions 1. 63-year-old white male with multiple risk factors for coronary artery disease, presenting with chest pain and shortness of breath. Myocardial perfusion imaging revealing areas of fixed and small areas of reversible defect. In view of the patient's ongoing symptoms, multiple risk factors and the abnormal perfusion scan, in order to further evaluate the coronary status, a cardiac catheterization was recommended. Patient underwent left heart catheterization with left and right coronary angiogram today. The findings are as follows. 2. Mild coronary artery disease. LVEDP of 17 mmHg. Diagnostic RX Recommendation: medical therapy and/or counseling LV EDP: 17 mmHg Left Ventriculography Findings: * LV gram was not performed because of the patient's renal insufficiency and history of dye allergy. Pressures Phase:Rest AO : 119 / 88 ( 103 ) @ 8:34:00 AM 131 / 80 ( 102 ) @ 8:38:00 AM 133 / 80 ( 102 ) @ 8:38:00 AM LV : 133 / 0 / 16 @ 8:38:00 AM 136 / 0 / 17 @ 8:38:00 AM Valves Phase:DefaultPhase AV : 4.0 @ 7:50:20 AM AV Mean Gradient: 15.0 @ 7:50:20 AM Clinical Evaluation EBL: 5mL-10mL Procedural Details Procedure Consent Obtained. Pre-Procedure Time Out. Identified patient by full name and date of as verbalized by the patient/guarantor. Does the consent match the physician's order: Yes. Accurate & Complete Informed Consent: Yes. Inpatient/Outpatient History & Physical on Chart: Yes. If H&P is completed, is and addenduem needed: No. Visualize and Verify Site with Patient/Guarantor: N/A. Relevant Radiology Images available: Yes. The risks, benefits, and alternatives of sedation and/or procedure were discussed by physician. The patient agrees to continue. Procedure started. [facility] Clinical Fraility Score: 3: Managing Well. 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 Chest Pain Symptom Assessment: Typical Angina Symptoms. Cardiovascular Instability: No. Correct patient, site and procedure confirmed by cath team. PERRLA. 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 Lungs clear x 5 lobes. IV Site on Arrival: 20 gauge in the right anticubital. IV Fluids: 0.9% NaCl at KVO. 800 mL infused prior to cytogenetics laboratory manager. Pre Procedural Pulses: bilateral dorsalis pedis was 3+. Pre Procedural Pulses: bilateral posterior tibial was 3+. Pre Procedural Pulses: bilateral radial was 3+. Oxygen started at 2liters/min via nasal canula. right groin was prepped with chloroprep then draped in the usual sterile fashion. right radial was prepped with chloroprep then draped in the usual sterile fashion. Physician notified. Baseline sample Acquired. HR: 69 BPM. Patient's family in 112-1. Dr. Cunningham will update at the completion of the procedure. Equipment: 6F - Radial. Cardiac Cath Pack. ACIST Manifold Kit Model BT 2000. Heparinized Saline (2 units/mL), 1000 mL bag. Physician arrived. Physician scrubbed in. Immediate Pre-Procedure Time Out. Correct Patient: Yes; Correct Procedure: Yes; Correct Site: Yes; Correct Patient Position: Yes; Correct Supplies: Yes; Dried Flammable Prep: Yes; Blood Products Available: N/A;. Lidocaine 1% infiltrated to the right radial. Arterial access obtained. A test dose of 3mL of contrast was given via hand injection through the sheath to assess for contrast reaction. No signs or symptoms of a contrast reaction noted. A 6 filipino Jose catheter in over the exchange J wire. Multiple views taken of left coronary artery. Catheter redirected to the LV. EDP Sample taken: LV 133/-1,16; HR: 76 BPM; SpO2: 93%. Pullback taken: LV 136/0,17; AO 131/80(102); Mean: 15mmHg, Peak to Peak: 4mmHg, SEP: 6sec/min; HR: 70 BPM; SpO2: 92%. Catheter removed over the exchange J wire. A 5 filipino JR4 catheter in over the exchange J wire. Multiple views taken of right coronary artery. Catheter removed over the exchange J wire. Physician scrubbed out. Physician review of cine films. A TR Band was successful obtaining hemostatsis at the Right Radial artery insertion site. Post Procedure: Pulses reassessed and unchanged. PERRLA. 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 No VTE prophylaxis required. Medication's Wasted: Lidocaine 1% = 18 mL. Medication's Wasted: Nitro = 49.8 mg. Medication's Wasted: Heparin = 1000 units. Total IV fluids: 100 mL. Complications: none. Post-op diagnosis: Non-obstructive CAD. Estimated blood loss: 5mL-10mL. Responsiveness - Normal response to verbal stimuli; alert and oriented, PERRLA. Airway - Unaffected, no intervention required; spontaneous ventilation. Circulation: W/N/L, pulses unchanged. Nausea/Vomiting: No. Procedure completed. Patient transferred by bed to 1st floor. Vital chart was stopped. Access Site Site: Right Radial artery Sheath Size: 6 Fr Hemostasis Method: TR Band Hemostasis Success: Successful Procedure Medications Start: 7:07 AM Stop: 7:07 AM Medication: Benadryl Amount: 50 mg Route: I.V. Start: 7:11 AM Stop: 7:11 AM Medication: Solu-Medrol (methylprednisolone) Amount: 125 mg Route: I.V. Start: 7:19 AM Stop: 7:19 AM Medication: Versed Amount: 1 mg Route: I.V. Start: 7:20 AM Stop: 7:20 AM Medication: Fentanyl Amount: 50 mcg Route: I.V. Start: 7:20 AM Stop: 7:20 AM Medication: Pepcid Amount: 40 mg Route: I.V. Start: 7:28 AM Stop: 7:28 AM Medication: Verapamil Amount: 5 mg Route: I.A. Start: 7:28 AM Stop: 7:28 AM Medication: Nitrogylcerin Amount: 200 mcg Route: I.A. Start: 7:34 AM Stop: 7:34 AM Medication: Versed Amount: 1 mg Route: I.V. Start: 7:34 AM Stop: 7:34 AM Medication: Fentanyl Amount: 50 mcg Route: I.V. Start: 7:34 AM Stop: 7:34 AM Medication: Heparin Amount: 5000 units Route: I.V. I, the attending physician, have reviewed and verified all procedure medications. Yes, all medications given per verbal order History/Risk Factors Hypertension: Yes Dyslipidemia: Yes Peripheral Arterial Disease (PAD): No Myocardial Infarction (VT): No Obesity: Yes Renal Disease: No Tobacco Use: Never Prior Interventions PCI: No CABG: No Valve Surgery: No Report Signatures Finalized by Dr Justin Cunningham MD [facility] on 07/11/2024 08:02 AM
--- NOTE | 2024-07-11 06:48 | PC.NURSE ---
patient left the floor for laborer rags at [phone]
[2024-07-11 07:54] VITALS: BP 146/88; PULSE 63; RESP 19; O2SAT 94
[2024-07-11 08:00] VITALS: BP 141/87; PULSE 63; RESP 17; TEMP 36.6; O2SAT 94
--- NOTE | 2024-07-11 08:33 | P.DS_ITS ---
Discharge Providers Date of Admission: 07/09/24 00:05 Date of Discharge: July 11, 2024 Attending Provider at Admission: Susy Hernandez MD Attending Provider at Discharge: Fercho Gavin MD Consults: Cardiology: Dr. Cunningham Primary Care Provider: Evans Anderson DO Diagnoses at Discharge Discharge Diagnosis (1) Acute kidney injury: Status: Acute (2) Abnormal nuclear cardiac imaging test: Status: Acute (3) Abnormal EKG: Status: Acute Permanent problem details: Incomplete bundle branch block with PVCs (4) Chest pain: Status: Acute Qualifiers: Chest pain type: unspecified Qualified Code(s): R07.9 - Chest pain, unspecified (5) Mixed dyslipidemia: Status: Chronic (6) Hypertension: Status: Acute Qualifiers: Hypertension type: primary hypertension Qualified Code(s): I10 - Essential (primary) hypertension (7) Type 2 diabetes mellitus with diabetic nephropathy: Status: Acute Qualifiers: 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 Patient is stating that for last couple months he has been experiencing chest pain at rest which gets worse on exertion, no relieving factor, chest pain would last for few minutes, he is describing chest pain as pressure-like sensation substernally, today he started experiencing numbness in his left arm that concerned him and brought him to the hospital. Patient is not endorsing nausea vomiting diarrhea fever. Does not drink alcohol or smoke. Hospital Course Hospital Course Patient was admitted to the hospital further evaluation and management of unstable angina, hypertensive urgency. During hospitalization he was found to have uncontrolled hypertension for which his antihypertensives were adjusted. Because of concerns for unstable angina he underwent cardiac stress test was concerning for possible chika-infarct ischemia. Cardiology was consulted he underwent cardiac angiogram on 07/11 in which she was found to have large medium caliber wraparound LAD with extensive compression and LAD causing 50% luminal narrowing. Patient was advised for medical management. During hospitalization he was also found to have uncontrolled diabetes mellitus with A1c of 8.3. He has been discharged in medically stable condition on adjusted antihypertensive and antidiabetic medications. He is to check his blood pressures and blood sugar daily at home maintain a diary. He is to follow-up with his primary care provider within next 2 weeks with a blood pressure and blood sugar diary for further adjustment of medications. His goal blood pressure is less than 140/90 mmHg with fasting blood sugar of less than 120. Physical Exam Narrative: General: No acute distress, AO x3, morbidly obese HEENT: PERRLA, pupils bilaterally equal and reactive Chest: Normal vesicular breath sounds, no added sounds, equal good air entry bilaterally CVS: S1-S2 regular, soft pansystolic murmur, no tachycardia, no gallops, no rubs Abdomen: Soft, nontender, no organomegaly, bowel sounds present Neuro: No focal deficits, no facial deformity, AO x3, power 5/5 in all limbs Discharge Data Studies Completed and Pending Completed Studies During Hospitalization Category Date Time Status RAILWAY PATROL OFFICER request for service Routine Exams 07/11/24 06:05 Completed Sestamibi Stress Test Request Routine Exams 07/08/24 23:21 Draft XR chest 1V portable [id number] Stat Exams 07/08/24 20:06 Completed NM vanessa perf SPECT r/s* [id number] Routine Nuc Med 07/09/24 05:00 Completed Pending at discharge Category Date Time Status RAILWAY PATROL OFFICER request for service Routine Exams 07/10/24 06:17 Ordered MAG [Magnesium] AM LABS Lab 07/12/24 04:00 Ordered CV. echo wo/w contrast [id number] Routine Ultrasound 07/08/24 23:20 Taken Radiology Impressions Chest X-Ray 07/08/24 20:06 IMPRESSION: No acute findings. Lexiscan stress test: PERFUSION FINDINGS Moderate area of moderately decreased tracer uptake involving the mid and apical inferior, mid inferolateral, apical lateral, apical septal and LV apex. Slight reversibility was noted in the apical lateral segment. FUNCTIONAL RESULTS (calculated via Gated SPECT) Stress Image LV EF (%): 57 Stress EDV (mL):144 TID: 0.85 Stress ESV (mL):62 FUNCTIONAL FINDINGS: Segmental wall motion analysis revealing no gross wall motion abnormalities IMPRESSIONS 1. Myocardial perfusion imaging revealing moderate area of persistent decreased tracer uptake involving the inferior, inferolateral and apical regions with a small area of slight reversibility, suggesting myocardial scarring predominantly in the distribution of the right coronary artery with some involvement of the circumflex and left descending artery. Very small area of ischemia in the apical lateral region, suggestive Myocard scarring with a very small area of possible preinfarction ischemia. 2. Normal LV ejection fraction of 57%. 3. LV wall motion analysis revealing no gross wall motion abnormalities. 4. Mildly dilated LV cavity with end-systolic volume of 62 mL No similar previous studies are available for comparison Dr Justin Cunningham MD [facility] (Electronically Signed) Final Date: 09 July 2024 Laboratory Results WBC 9.73 10^3/uL (3.29-11.43) 07/11/24 03:24 RBC 4.69 10^6/uL (3.85-5.65) 07/11/24 03:24 Hgb 14.20 g/dL (11.27-16.99) 07/11/24 03:24 Hct 43.3 % (37-53) 07/11/24 03:24 MCV 92.3 fl (82-101) 07/11/24 03:24 MCH 30.3 pg (27-33) 07/11/24 03:24 MCHC 32.8 g/dL (30-55) 07/11/24 03:24 RDW 13.0 % (12.1-15.1) 07/11/24 03:24 Plt Count 244 10^3/cmm (157-399) 07/11/24 03:24 MPV 9.9 fL (7.4-10.4) 07/11/24 03:24 Neut % (Auto) 67.1 % 07/11/24 03:24 Lymph % (Auto) 20.6 % 07/11/24 03:24 Elliott % (Auto) 7.2 % 07/11/24 03:24 Eos % (Auto) 3.9 % 07/11/24 03:24 Baso % (Auto) 0.8 % 07/11/24 03:24 Neut # (Auto) 6.53 10^3/uL (1.8-7.7) 07/11/24 03:24 Lymph # (Auto) 2.0 10^3/uL (0.8-4.8) 07/11/24 03:24 Elliott # (Auto) 0.7 10^3/uL (0.2-0.9) 07/11/24 03:24 Eos # (Auto) 0.4 10^3/uL (0.0-0.8) 07/11/24 03:24 Baso # (Auto) 0.1 10^3/uL (0.0-0.1) 07/11/24 03:24 Nucleated RBC % (auto) 0 % 07/11/24 03:24 Nucleated RBCs # 0.0 /100WBC 07/11/24 03:24 D-Dimer 0.41 ug/mLFEU (0-0.59) 07/08/24 20:12 Sodium 137 mmol/L (136-145) 07/11/24 03:24 Potassium 4.4 mmol/L (3.5-5.1) 07/11/24 03:24 Chloride 103 mmol/L (98-107) 07/11/24 03:24 Carbon Dioxide 27 mmol/L (22-29) 07/11/24 03:24 Anion Gap 11.4 (5-19) 07/11/24 03:24 BUN 16 mg/dL (8-23) 07/11/24 03:24 Creatinine 1.2 mg/dL (0.7-1.2) 07/11/24 03:24 GFR Calculation 60.8 mL/min (90-130) L 07/11/24 03:24 Glucose 167 mg/dL (65-115) H 07/11/24 03:24 POC Glucose 159 mg/dL (70-110) H 07/09/24 09:54 Calculated Osmolality 289 mOsm/kg (285-295) 07/11/24 03:24 Calcium 8.7 mg/dL (8.5-10.5) 07/11/24 03:24 Magnesium 1.8 mg/dL (1.7-2.3) 07/11/24 03:24 Iron 46 ug/dL (59-158) L 07/09/24 02:04 TIBC 224 mcg/dl 07/09/24 02:04 % Saturation 20.5 % (20-50) 07/09/24 02:04 Unsat Iron Binding 178 ug/dL (112-347) 07/09/24 02:04 Total Bilirubin 0.6 mg/dL (0.15-1.2) 07/11/24 03:24 AST 14 U/L (0-40) 07/11/24 03:24 ALT 19 U/L (0-41) 07/11/24 03:24 Alkaline Phosphatase 111 U/L (40-130) 07/11/24 03:24 Troponin T Baseline 19 ng/L (0-15) H 07/08/24 20:12 Troponin T 120 Minute 17.78 ng/L (0-15) H 07/08/24 21:56 Delta Troponin T -1.22 ABS# (0-10) L 07/08/24 21:56 Troponin T Hi Sens 6Hr 18.52 ng/L (0-15) H 07/09/24 02:04 Troponin T Hi Sens 6Hr Delta -0.48 ng/L (0-12) L 07/09/24 02:04 NT-Pro-B Natriuret Pep 305 pg/mL (0-125) H 07/10/24 09:15 Total Protein 6.5 g/dL (6.6-8.7) L 07/11/24 03:24 Albumin 3.3 g/dL (3.5-5.2) L 07/11/24 03:24 Globulin 3.2 g/dL (1.3-4.6) 07/11/24 03:24 Triglycerides 171 mg/dL (0-150) H 07/09/24 21:17 Cholesterol 162 mg/dL (0-200) 07/09/24 21:17 LDL Cholesterol, Calc 95 mg/dL (50-129) 07/09/24 21:17 HDL Cholesterol 33 mg/dL (60-100) L 07/09/24 21:17 LDL/HDL Ratio 2.88 RATIO (0.00-3.22) 07/09/24 21:17 Cholesterol/HDL Ratio 4.91 mg/dL (1.0-5.00) 07/09/24 21:17 Vitals Last Vital Signs Temp 97.9 F 07/11/24 08:00 Pulse 63 07/11/24 08:00 Resp 17 07/11/24 08:00 BP 141/87 07/11/24 08:00 Pulse Ox 94 07/11/24 08:00 O2 Del Method Room Air 07/11/24 08:00 Discharge Plan Discharge Patient Disposition: Home Condition: Stable Prescriptions: New losartan 50 mg Tablet 100 mg PO DAILY Qty: 60 0RF carvedilol 6.25 mg Tablet 6.25 mg PO BID Qty: 60 0RF isosorbide mononitrate 30 mg tablet extended release 24 hr 30 mg PO DAILY Qty: 30 0RF Continued aspirin [Adult Aspirin Regimen] 81 mg tablet,delayed release (DR/EC) 81 mg PO DAILY allopurinol 100 mg tablet 200 mg PO DAILY Patient Comments: per rheumatology levothyroxine 100 mcg tablet 100 mcg PO DAILY Qty: 90 1RF atorvastatin 20 mg tablet 20 mg PO DAILY Qty: 90 3RF Rx Instructions: Take 1 tablet by mouth once daily (DME) pen needle, diabetic 31 gauge x 1/4 needle See Rx Instructions .ROUTE .MEDSUPPLY Qty: 50 3RF Rx Instructions: As directed Ozempic 2 mg/dose (8 mg/3 mL) pen injector See Rx Instructions .ROUTE .COMPLEX Qty: 9 1RF Dose Instruction: inject 2mg (0.75ml) SUBCUTANEOUSLY EVERY 7 DAYS Rx Instructions: inject 2mg (0.75ml) SUBCUTANEOUSLY EVERY 7 DAYS (DME) Dexcom G7 Learning And Development Assistant Misc See Rx Instructions .Route Qty: 1 0RF Rx Instructions: As directed (DME) Dexcom G7 Sensor Device See Rx Instructions .Route Qty: 3 2RF Rx Instructions: As directed Changed amlodipine 5 mg tablet 10 mg PO DAILY Qty: 90 3RF insulin glargine [Lantus Solostar U-100 Insulin] 100 unit/mL (3 mL) insulin pen 30 unit SUBCUT BID Qty: 15 0RF Discontinued allopurinol 300 mg tablet 300 mg PO DAILY Patient Comments: per rheumatology Rx Instructions: take with the 200 mg of allopurinol to make 500 mg total enalapril maleate 5 mg tablet 5 mg PO DAILY Qty: 90 3RF prednisone 50 mg tablet 50 mg PO DAILY Discharge Orders: Discharge Order (Routine); Ordered 07/11/24 Ordered By: Fercho Gavin Referrals: Evans Anderson DO [Primary Care Provider] - 07/18/24 10:30 am Susy Mac MD [Physician] - 07/17/24 12:15 pm Discharge Diet: Cardiac and Diabetic Discharge Activity: Resume usual activity and Increase activity as tolerated Patient Instructions: Losartan (By mouth), Carvedilol (By mouth), Angina (DC), Acute Kidney Injury (DC), Cardiac Stress Test (GEN), Opioid Safety Activity Restrictions/Additional Instructions: Check your blood pressures daily and maintain a blood pressure diary. Check your fasting blood sugar daily and maintain a blood sugar diary. Goal blood pressure is less than 140/90 mmHg. Goal fasting blood sugar is less than 120. Follow-up with the primary care provider in 2 weeks with a blood sugar and blood pressure diary further adjustment of medications as needed. Multiple medication changes have been done. Do not take enalapril anymore. Instead take losartan 100 mg oral daily. Dose of amlodipine has been increased to 10 mg daily. Coreg 6.25 twice daily has been added to your medication list. Dose of Lantus has been changed to 30 units twice daily. You should have a repeat BMP with a primary care provider in 2 weeks. Discharge Attestations Time Spent in Discharge Care*: greater than 30 min Specific Discharge Activities: educating patient, educating and/or supporting family/caregiver, discussing with pcp/other providers, discussing with shoe caser/social workers/dc planners, documenting/other paperwork and evaluating patient/reviewing data Status at Discharge: Cognitive status at discharge: cognitively intact , Behavioral status at discharge: cooperative , Functional status at discharge: independent ambulation , Overall status at discharge: patient is back to baseline Quality Metrics Clinical Quality Measures [ No reported AMI, CVA or VTE this stay] Coding Level of Care Code 28570 Total time (in minutes) for Discharge: 60 Diagnoses Acute kidney injury N17.9 Abnormal nuclear cardiac imaging test R93.1 Abnormal EKG R94.31 Chest pain, unspecified type R07.9 Chest pain type: unspecified Mixed dyslipidemia E78.2 Primary hypertension I10 Hypertension type: primary hypertension Type 2 diabetes mellitus with diabetic nephropathy, with long-term current use of insulin E11.21; Z79.4 Diabetes mellitus jail insulin use: with jail use
--- NOTE | 2024-07-11 08:43 | P.PN_ITS ---
Subjective 2 Subjective: The patient's creatinine level today is 1.2. He has no significant chest pain today. No fever or chills. No cough. 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 According the patient, he had a tightness and scratchy feeling in the throat. Apparently the medication helped the symptoms. Other details are not available. This happened more than 15 years ago while doing a CT scan. Medications: Medication Review Details: Current Medications Acetaminophen (Acetaminophen 500 Mg Tablet) 500 mg PO Q4H PRN PRN Reason: fever Al Hydrox/Mg Hydrox/Simethicone (Bzxm-Xtu-Ukvdcyyjt-Alisha 30 Ml Udc) 30 ml PO Q15M PRN PRN Reason: INDIGESTION Albuterol/Ipratropium (Ipratropium-Albuterol 3 Ml Neb) 3 ml INHALATION Q6H PRN PRN Reason: SHORTNESS OF BREATH Allopurinol (Allopurinol 300 Mg Tablet) 300 mg PO DAILY [facility] Last Admin: 07/10/24 07:42 Dose: 300 mg Amlodipine Besylate (Amlodipine 10 Mg Tablet) 10 mg PO DAILY [facility] Last Admin: 07/10/24 07:42 Dose: 10 mg Aspirin (Aspirin 81 Mg Ec Tablet) 81 mg PO DAILY [facility] Last Admin: 07/10/24 07:42 Dose: 81 mg Atorvastatin Calcium (Atorvastatin 10 Mg Tablet) 20 mg PO BEDTIME [facility] Last Admin: 07/10/24 21:22 Dose: 20 mg Atropine Sulfate (Atropine 1 Mg/Ml Sdv 1 Ml) 0.5 mg IVP PRN PRN PRN Reason: Symptomatic bradycardia Carvedilol (Carvedilol 6.25 Mg Tablet) 6.25 mg PO BID [facility] Last Admin: 07/10/24 18:03 Dose: 6.25 mg Enoxaparin Sodium (Enoxaparin 40 Mg/0.4 Ml Syringe) 40 mg SUBCUT BEDTIME [facility] Last Admin: 07/10/24 21:21 Dose: 40 mg Hydralazine HCl (Hydralazine 20 Mg/Ml Inj 1 Ml) 10 mg IVP Q4H PRN PRN Reason: SBP More than 160 mmhg Last Admin: 07/09/24 13:43 Dose: 10 mg Sodium Chloride (Sodium Chloride 0.45%) 1,000 mls @ 75 mls/hr IV .[id number] [facility] Last Admin: 07/10/24 21:23 Dose: 75 mls/hr Sodium Chloride (Sodium Chloride 0.9%) 1,000 mls @ 100 mls/hr IV .Q10H [facility] Last Admin: 07/11/24 08:22 Dose: Not Given Insulin Glargine (Insulin Glargine 100 Units/1 Ml) 40 unit SUBCUT DAILY [facility] Last Admin: 07/10/24 08:12 Dose: Not Given Levothyroxine Sodium (Levothyroxine 100 Mcg Tablet) 100 mcg PO ACBREAKFAST [facility] Last Admin: 07/11/24 05:57 Dose: 100 mcg Losartan Potassium (Losartan 50 Mg Tablet) 100 mg PO DAILY [facility] Last Admin: 07/10/24 07:42 Dose: 100 mg Magnesium Hydroxide (Magnesium Hydroxide 30 Ml Udc) 30 ml PO DAILY PRN PRN Reason: CONSTIPATION Morphine Sulfate (Morphine 4 Mg/Ml Sdv 1 Ml) 2 mg IVP Q4H PRN PRN Reason: chest pain Naloxone HCl (Naloxone 0.4 Mg/Ml Sdv) 0.1 mg IVP Q2M PRN PRN Reason: RESPIRATORY RATE < 8/MIN Nitroglycerin (Nitroglycerin 1 Gm/Inch Oint Pkt) 1 inch TOPICAL Q6H PRN PRN Reason: BLOOD PRESSURE Last Admin: 07/10/24 07:43 Dose: 1 inch Nitroglycerin (Nitroglycerin 0.4 Mg Sublingual Tablet) 0.4 mg SUBLINGUAL Q5M PRN PRN Reason: CHEST PAIN Ondansetron HCl (Ondansetron 2 Mg/Ml Sdv 2 Ml) 4 mg IVP Q6H PRN PRN Reason: NAUSEA AND VOMITING Ondansetron HCl (Ondansetron 2 Mg/Ml Sdv 2 Ml) 4 mg IVP Q2M PRN PRN Reason: NAUSEA Temazepam (Temazepam 15 Mg Capsule) 15 mg PO BEDTIME PRN PRN Reason: INSOMNIA Vitals/I&O/Wt Last Vital Signs Temp 97.9 F 07/11/24 08:00 Pulse 63 07/11/24 08:00 Resp 17 07/11/24 08:00 BP 141/87 07/11/24 08:00 Pulse Ox 94 07/11/24 08:00 O2 Del Method Room Air 07/11/24 08:00 07/10/24 07/11/24 07/11/24 22:59 06:59 14:59 Intake Total 1567.5 / 2547.5 0 / 2547.5 Balance 1567.5 / 2547.5 0 / 2547.5 Weight last 48 hrs Weight 288 lb 11.2 oz Weight 291 lb Weight 283 lb 9.6 oz Physical Exam 2 Narrative: GENERAL: The patient is alert and oriented times three. Not in any acute distress. Moderately obese HEENT: No significant pallor, icterus or lymphadenopathy.Oral cavity: There are no mucous membrane lesions. NECK: Trachea appears to be central. No masses noted. No JVD or thyromegaly appreciated. RESPIRATORY: Chest is symmetrical. No intercostals muscle retraction or any accessory muscle activation. There is no chest wall tenderness. Breath sounds are heard bilaterally. No rales or rhonchi heard. No evidence of any consolidation. BREASTS: Deferred. HEART: The heart sounds are normal. No S3 or S4. No significant murmurs. No pericardial rub ABDOMEN: No vessel pulsations or distention. No tenderness. No organomegaly appreciated. Bowel sounds are normally heard. : Deferred. RECTAL: Deferred. LYMPHATIC: No lymphadenopathy noted in the neck. EXTREMITIES: No edema or cyanosis. No clubbing. MUSCULOSKELETAL: No acute joint deformities or swelling SKIN: There are no significant rashes or ecchymosis NEUROPSYCHIATRIC: The patient is alert and oriented x3. Appears to be in a good mood. No tremors or rigidity noted. Data 07/11/24 03:24 07/11/24 03:24 Other Labs: Laboratory Last Values WBC 9.73 10^3/uL (3.29-11.43) 07/11/24 03:24 RBC 4.69 10^6/uL (3.85-5.65) 07/11/24 03:24 Hgb 14.20 g/dL (11.27-16.99) 07/11/24 03:24 Hct 43.3 % (37-53) 07/11/24 03:24 MCV 92.3 fl (82-101) 07/11/24 03:24 MCH 30.3 pg (27-33) 07/11/24 03:24 MCHC 32.8 g/dL (30-55) 07/11/24 03:24 RDW 13.0 % (12.1-15.1) 07/11/24 03:24 Plt Count 244 10^3/cmm (157-399) 07/11/24 03:24 MPV 9.9 fL (7.4-10.4) 07/11/24 03:24 Neut % (Auto) 67.1 % 07/11/24 03:24 Lymph % (Auto) 20.6 % 07/11/24 03:24 [place] % (Auto) 7.2 % 07/11/24 03:24 Eos % (Auto) 3.9 % 07/11/24 03:24 Baso % (Auto) 0.8 % 07/11/24 03:24 Neut # (Auto) 6.53 10^3/uL (1.8-7.7) 07/11/24 03:24 Lymph # (Auto) 2.0 10^3/uL (0.8-4.8) 07/11/24 03:24 [place] # (Auto) 0.7 10^3/uL (0.2-0.9) 07/11/24 03:24 Eos # (Auto) 0.4 10^3/uL (0.0-0.8) 07/11/24 03:24 Baso # (Auto) 0.1 10^3/uL (0.0-0.1) 07/11/24 03:24 Nucleated RBC % (auto) 0 % 07/11/24 03: Nucleated RBCs # 0.0 /100WBC 07/11/24 03:24 D-Dimer 0.41 ug/mLFEU (0-0.59) 07/08/24 20:12 Sodium 137 mmol/L (136-145) 07/11/24 03:24 Potassium 4.4 mmol/L (3.5-5.1) 07/11/24 03:24 Chloride 103 mmol/L (98-107) 07/11/24 03:24 Carbon Dioxide 27 mmol/L (22-29) 07/11/24 03:24 Anion Gap 11.4 (5-19) 07/11/24 03:24 BUN 16 mg/dL (8-23) 07/11/24 03:24 Creatinine 1.2 mg/dL (0.7-1.2) 07/11/24 03:24 GFR Calculation 60.8 mL/min (90-130) L 07/11/24 03:24 Glucose 167 mg/dL (65-115) H 07/11/24 03:24 POC Glucose 159 mg/dL (70-110) H 07/09/24 09:54 Calculated Osmolality 289 mOsm/kg (285-295) 07/11/24 03:24 Calcium 8.7 mg/dL (8.5-10.5) 07/11/24 03:24 Magnesium 1.8 mg/dL (1.7-2.3) 07/11/24 03:24 Iron 46 ug/dL (59-158) L 07/09/24 02:04 TIBC 224 mcg/dl 07/09/24 02:04 % Saturation 20.5 % (20-50) 07/09/24 02:04 Unsat Iron Binding 178 ug/dL (112-347) 07/09/24 02:04 Total Bilirubin 0.6 mg/dL (0.15-1.2) 07/11/24 03:24 AST 14 U/L (0-40) 07/11/24 03:24 ALT 19 U/L (0-41) 07/11/24 03:24 Alkaline Phosphatase 111 U/L (40-130) 07/11/24 03:24 Troponin T Baseline 19 ng/L (0-15) H 07/08/24 20:12 Troponin T 120 Minute 17.78 ng/L (0-15) H 07/08/24 21:56 Delta Troponin T -1.22 ABS# (0-10) L 07/08/24 21:56 Troponin T Hi Sens 6Hr 18.52 ng/L (0-15) H 07/09/24 02:04 Troponin T Hi Sens 6Hr Delta -0.48 ng/L (0-12) L 07/09/24 02:04 NT-Pro-B Natriuret Pep 305 pg/mL (0-125) H 07/10/24 09:15 Total Protein 6.5 g/dL (6.6-8.7) L 07/11/24 03:24 Albumin 3.3 g/dL (3.5-5.2) L 07/11/24 03:24 Globulin 3.2 g/dL (1.3-4.6) 07/11/24 03:24 Triglycerides 171 mg/dL (0-150) H 07/09/24 21:17 Cholesterol 162 mg/dL (0-200) 07/09/24 21:17 LDL Cholesterol, Calc 95 mg/dL (50-129) 07/09/24 21:17 HDL Cholesterol 33 mg/dL (60-100) L 07/09/24 21:17 LDL/HDL Ratio 2.88 RATIO (0.00-3.22) 07/09/24 21:17 Cholesterol/HDL Ratio 4.91 mg/dL (1.0-5.00) 07/09/24 21:17 A&P Assessment and plan (1) Acute kidney injury: The repeat creatinine after IV hydration was 1.2. Most likely this might be his baseline. He seems to be otherwise stable. (2) Abnormal nuclear cardiac imaging test: Patient is scheduled for the cardiac catheterization today. (3) Abnormal EKG: The EKG changes are nonspecific. (4) Chest pain: The chest pain is somewhat atypical. However in view of the multiple fractures and the abnormal Myocardial perfusion imaging, possibility of him having underlying coronary ischemia causing the pain is a strong consideration. Based on the angiogram findings, further recommendations will be made. Currently the symptoms have subsided. Qualifiers: Chest pain type: unspecified Qualified Code(s): R07.9 - Chest pain, unspecified (5) Mixed dyslipidemia: May continue on the current medications. May go ahead and do a lipid profile in the morning (6) Hypertension: The blood pressure is elevated but seems to be responding to the medication changes. May continue to optimize the antihypertensive medications. Qualifiers: Hypertension type: primary hypertension Qualified Code(s): I10 - Essential (primary) hypertension (7) Type 2 diabetes mellitus with diabetic nephropathy: There are diabetes seems to be fairly under control. May continue the current management. 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 The possibility of him developing the reaction even after the premedication was discussed with the patient and family in detail which they understood well. He is not very sure whether he had an anaphylactic reaction or not. Also the possibility for contrast-induced nephropathy was discussed. Patient and the family understood this well. We may give a test dose of the contrast agent before proceeding with the procedure. Based on the angiogram findings, further recommendations will be made Addendum The angiogram was done. Patient was found to have only mild coronary disease. He did not have any reaction to the contrast agent. The LVEDP was 17 mmHg. May continue on the current treatment If he continues to remain stable, may be discharged home from a cardiac standpoint PDMP PDMP Reviewed: Not Reviewed Attestations 2 Medical Necessity Statement*: Deferred to the primary care Coding Level of Care Code 11907 Diagnoses Acute kidney injury N17.9 Abnormal nuclear cardiac imaging test R93.1 Abnormal EKG R94.31 Chest pain, unspecified type R07.9 Chest pain type: unspecified Mixed dyslipidemia E78.2 Primary hypertension I10 Hypertension type: primary hypertension Type 2 diabetes mellitus with diabetic nephropathy, with long-term current use of insulin E11.21; Z79.4 Diabetes mellitus terminal system operator insulin use: with terminal system operator use
[2024-07-11] MEDS: losartan 50 mg Tablet 100 MG PO (10:24)
[2024-07-11] MEDS: aspirin 81 mg EC Tablet PO (10:24)
[2024-07-11] MEDS: allopurinol 300 mg Tablet PO (10:24)
[2024-07-11] MEDS: carvedilol 6.25 mg Tablet PO (10:24)
[2024-07-11] MEDS: amlodipine 10 mg Tablet PO (10:24)
[2024-07-11] MEDS: isosorbide mononitrate ER 30 mg Tablet PO (13:01)
[2024-07-11 16:00] VITALS: BP 155/94; PULSE 90; RESP 20; TEMP 37; O2SAT 92
== END 2024-07-11 16:01 | disposition home or self-care (01) | DRG 287 ==
LOC: ER 23:01 → ER IP 07-09 03:48 → ICU 07-09 08:24 → ER IP 07-10 12:29 → CSU 07-10 12:29
PROVIDERS: Internal Medicine Cardiovascular Disease; Admitting Provider Internal Medicine; Emergency Provider Emergency Medicine; PCP Family Medicine; Visit Provider Student in an Organized Health Care Education/Training Program
PROC: 4A023N7 Measurement of Cardiac Sampling and Pressure, Left Heart, Percutaneous Approach (ICD-10-PCS; principal; 2024-07-11 07:00)
DX: I25.110 Atherosclerotic heart disease of native coronary artery with unstable angina pectoris (principal); N17.9 Acute kidney failure, unspecified; R94.39 Abnormal result of other cardiovascular function study; R94.31 Abnormal electrocardiogram [ECG] [EKG]; E78.2 Mixed hyperlipidemia; E11.22 Type 2 diabetes mellitus with diabetic chronic kidney disease; N18.2 Chronic kidney disease, stage 2 (mild); I10 Essential (primary) hypertension; G47.33 Obstructive sleep apnea (adult) (pediatric); E66.9 Obesity, unspecified; M10.9 Gout, unspecified; E55.9 Vitamin D deficiency, unspecified; Z68.36 Body mass index [BMI] 36.0-36.9, adult; Z79.4 Long term (current) use of insulin; Z79.85 Long-term (current) use of injectable non-insulin antidiabetic drugs; Z79.82 Long term (current) use of aspirin; Z91.041 Radiographic dye allergy status
CPT/HCPCS: 36415; 36416; 71045; 78452; 80048; 80053; 80061; 82962; 83540; 83550; 83735; 83880; 84484; 85025; 85378; 93005; 93017; 93458; 94762; 96372; 96374; 96375; 96376; 99152; 99153; 99285; A9500; C1769; C1887; C1894; C8929; J0360; J1644; J1650; J1940; J2250; J2785; J3010; J3490; J7030; J9999; Q0163; Q9967

== ENCOUNTER → 2024-07-17 12:48 | Outpatient (BNVA) | payer MEDICARE, SELFPAY | PROVIDERS: PCP Family Medicine; Visit Provider Internal Medicine Cardiovascular Disease | DX: R07.9 Chest pain, unspecified (principal); I49.49 Other premature depolarization; I45.9 Conduction disorder, unspecified | CPT/HCPCS: 93005 ==

== ENCOUNTER → 2024-07-18 08:30 | Outpatient (BNVA) | payer MEDICARE, SELFPAY | PROVIDERS: PCP Family Medicine; Visit Provider Family Medicine | DX: E11.22 Type 2 diabetes mellitus with diabetic chronic kidney disease (principal); N18.30 Chronic kidney disease, stage 3 unspecified; E55.9 Vitamin D deficiency, unspecified; E04.1 Nontoxic single thyroid nodule; E03.9 Hypothyroidism, unspecified; E11.40 Type 2 diabetes mellitus with diabetic neuropathy, unspecified; E11.65 Type 2 diabetes mellitus with hyperglycemia; I10 Essential (primary) hypertension; E83.42 Hypomagnesemia; R79.89 Other specified abnormal findings of blood chemistry; Z12.5 Encounter for screening for malignant neoplasm of prostate; R10.9 Unspecified abdominal pain | CPT/HCPCS: 80053; 80061; 82306; 82607; 82746; 83690; 83735; 84439; 84443; 85025; 85651; 86140; G0103 ==

== ENCOUNTER → 2024-09-23 08:29 | Outpatient (BNVA) | payer MEDICARE, SELFPAY | PROVIDERS: PCP Family Medicine; Visit Provider Internal Medicine | DX: E11.40 Type 2 diabetes mellitus with diabetic neuropathy, unspecified (principal); E11.65 Type 2 diabetes mellitus with hyperglycemia; E04.1 Nontoxic single thyroid nodule; E78.5 Hyperlipidemia, unspecified; E03.9 Hypothyroidism, unspecified; E11.22 Type 2 diabetes mellitus with diabetic chronic kidney disease; N18.30 Chronic kidney disease, stage 3 unspecified; G47.33 Obstructive sleep apnea (adult) (pediatric); R53.83 Other fatigue; I10 Essential (primary) hypertension | CPT/HCPCS: 80053; 80061; 82043; 83036; 84439; 84443 ==

== ENCOUNTER → 2024-09-27 09:18 | Outpatient (BNVA) | payer MEDICARE, SELFPAY | PROVIDERS: PCP Family Medicine; Referring Provider Internal Medicine; Visit Provider Internal Medicine | DX: E11.22 Type 2 diabetes mellitus with diabetic chronic kidney disease (principal); N18.30 Chronic kidney disease, stage 3 unspecified; E11.40 Type 2 diabetes mellitus with diabetic neuropathy, unspecified; E11.65 Type 2 diabetes mellitus with hyperglycemia; E04.1 Nontoxic single thyroid nodule; E78.5 Hyperlipidemia, unspecified; E03.9 Hypothyroidism, unspecified | CPT/HCPCS: 99214 ==

== ENCOUNTER → 2024-10-31 15:44 | Outpatient (BNVA) | payer MEDICARE, SELFPAY | PROVIDERS: PCP Family Medicine; Visit Provider Family Medicine | DX: R10.9 Unspecified abdominal pain (principal); N39.0 Urinary tract infection, site not specified | CPT/HCPCS: 81000; 87086 ==

== ENCOUNTER 2024-11-08 10:57 | Outpatient (CLI) | payer MEDICARE, SELFPAY ==
--- NOTE | 2024-11-08 11:00 | US_ITS ---
WS: [id number] RENAL ULTRASOUND HISTORY: R10.9 - Unspecified abdominal pain COMPARISON: None available. TECHNIQUE: 2-D and color Doppler imaging of the kidney submitted. Right kidney: 9.8 cm x 6.4 cm x 5.5 cm. Cortex: 1.1 cm Normal echogenicity with no hydronephrosis or mass. Left kidney: 10.0 cm x 4.9 cm x 5.3 cm. Cortex: 1.7 cm Normal echogenicity with no hydronephrosis or mass. Aorta: Normal. Urinary Bladder: Minimally distended. US/US renal BI* [id number] IMPRESSION: Normal renal ultrasound.
== END 2024-11-08 10:58 | disposition home or self-care (01) ==
LOC: RAD 10:58
PROVIDERS: PCP Family Medicine; Visit Provider Family Medicine
DX: R10.9 Unspecified abdominal pain (principal); R80.9 Proteinuria, unspecified; R31.9 Hematuria, unspecified
CPT/HCPCS: 76770

== ENCOUNTER 2024-12-20 06:18 | Outpatient (CLI) | payer MEDICARE, SELFPAY ==
--- NOTE | 2024-12-20 06:30 | US_ITS ---
WS: [id number] THYROID ULTRASOUND HISTORY: Thyroid Nodule COMPARISON: 01/02/2024, 12/17/2021 Right lobe: 1.7 cm x 2.1 cm x 4.3 cm (w x ap x l). Volume: 7.3 cm3. Mildly heterogeneous thyroid. Previously described hypoechoic nodules in the inferior thyroid is reidentified. 2 nodules are identified in the lower pole. The larger measures 0.9 x 0.9 x 1.0 cm. No echogenic foci cyst. This additional nodule measures 0.7 x 0.6 x 1.3 cm. No significant increase in size. This nodule has peripheral calcification. No change. Left lobe: 1.7 cm x 2.0 cm x 3.8 cm (w x ap x l). Volume: 6.1 cm3. Normal size and echotexture. No significant or dominant nodules are present. Isthmus: 0.4 cm. US/US thyroid [id number] IMPRESSION: 1. TI-RADS 4; nodule lower pole RIGHT thyroid with peripheral calcification. D oes not fit size criteria for biopsy. Stable. Recommend ultrasound follow-up in 1 year. 2. TI-RADS 3; nodule lower pole RIGHT thyroid without calcification.
== END 2024-12-20 06:19 | disposition home or self-care (01) ==
LOC: RAD 06:19
PROVIDERS: PCP Family Medicine; Visit Provider Internal Medicine
DX: E04.2 Nontoxic multinodular goiter (principal); R93.89 Abnormal findings on diagnostic imaging of other specified body structures
CPT/HCPCS: 76536

== ENCOUNTER → 2025-03-03 08:45 | Outpatient (BNVA) | payer MEDICARE, SELFPAY | PROVIDERS: PCP Family Medicine; Visit Provider Internal Medicine | DX: E11.21 Type 2 diabetes mellitus with diabetic nephropathy (principal); Z79.4 Long term (current) use of insulin; N18.30 Chronic kidney disease, stage 3 unspecified; E11.22 Type 2 diabetes mellitus with diabetic chronic kidney disease; I10 Essential (primary) hypertension | CPT/HCPCS: 80053; 80061; 82043; 83036 ==

== ENCOUNTER 2025-04-10 09:21 | Emergency (ER) | payer MEDICARE, SELFPAY ==
[2025-04-10 09:26] VITALS: BP 195/105; PULSE 85; RESP 16; TEMP 36.6; O2SAT 99; BMI 35.6
--- NOTE | 2025-04-10 09:39 | CT_ITS ---
WS: [id number] CT ABDOMEN PELVIS TECHNIQUE: Noncontrast CT of the abdomen and pelvis with coronal and sagittal reformatted images. CLINICAL INFORMATION: R flank/abdominal pain COMPARISON: None. DLP: 1405.[address] scans at [facility] use at least one of these dose optimization techniques: automated exposure control; mA and/or kV adjustment per patient size (includes targeted exams where dose is matched to clinical indication); or iterative reconstruction. FINDINGS: Cholecystectomy clips. Tiny esophageal hiatal hernia. Fluid distended stomach. Small RIGHT perifissural nodule measuring 4 mm. Calcified granulomas LEFT lung Splenic granulomas. Fatty atrophy of the pancreas adrenal glands are normal. Mild RIGHT hydronephrosis with inflammatory stranding and edema about the RIGHT kidney. Mild RIGHT ureterectasis. 3.4 mm calculus in the dorsal bladder/distal UVJ presumably recently passed or almost passed. Sigmoid constipation. Fat- containing umbilical hernia. Mild pancolonic constipation. Normal appendix. CT/CT kidney stone [id number] IMPRESSION: 1. Mild RIGHT hydronephrosis with inflammatory stranding and edema about the R IGHT kidney. Small calculus at the distal RIGHT UVJ/bladder may have recently p assed or almost passed. This measures 3.4 mm
--- NOTE | 2025-04-10 09:40 | W.ED.MALEGU ---
Documented by User: JANINA Phillips 04/10/25 14:21 HPI - Male Genitourinary General: Chief complaint: Urogenital-Male Stated complaint: rt mid back pain / urinary Time Seen by Provider: 04/10/25 09:34 Source: patient Mode of arrival: ambulatory Limitations: no limitations History of Present Illness: Patient is a 64-year-old male who presents to ED today along with significant other for complaints of right flank/abdominal pain, nausea, vomiting, and inability to urinate. Patient states symptoms awoke him around 4 AM this morning and has been constant and severe since. He states he has no history of urolithiasis or urinary retention. He states he has had multiple episodes of nausea and vomiting since pain began. No changes in bowel movements. No fevers. He is not complaining of suprapubic pain or fullness. MD Complaint: other (flank pain, inability to urinate) Onset (ago): hour(s) Duration: constant Location: right flank Severity: severe Relieving factors: none Exacerbating factors: none Associated symptoms: Reports nausea and vomiting; Deny dysuria or hematuria Related Data Home Medications ?Medication ?Instructions ?Recorded ?Confirmed aspirin 81 mg tablet,delayed 81 mg PO DAILY 12/17/19 10/31/24 release (Adult Aspirin Regimen) cholecalciferol (vitamin D3) 125 125 mcg PO DAILY 07/17/24 10/31/24 mcg (5,000 unit) capsule coQ10 (ubiquinol) 100 mg capsule 100 mg PO DAILY 07/17/24 10/31/24 (Qunol Jarett CoQ10) escitalopram oxalate 10 mg tablet 10 mg PO DAILY 07/17/24 10/31/24 insulin glargine 100 unit/mL (3 40 unit SUBCUT DAILY 07/17/24 10/31/24 mL) subcutaneous pen (Lantus Solostar U-100 Insulin) loratadine 10 mg capsule (Allergy 10 mg PO DAILY 07/17/24 10/31/24 Relief (loratadine)) vitamin B complex 1 tab PO DAILY 07/17/24 10/31/24 Previous Rx's ?Medication ?Instructions ?Recorded pen needle, diabetic 31 gauge x #50 ea 11/16/2104/27 flash glucose sensor (FreeStyle #2 ea 07/18/24 Chandler 2 Sensor kit) amlodipine 5 mg tablet 5 mg PO QDAY #90 tabs 07/24/24 levothyroxine 100 mcg tablet See Rx Instructions .Route 07/30/24 .COMPLEX #90 tabs carvedilol 6.25 mg tablet 6.25 mg PO BID #180 tabs 08/12/24 isosorbide mononitrate 30 mg 30 mg PO DAILY #90 tabs 08/12/24 tablet,extended release 24 hr valsartan 160 mg tablet 160 mg PO BID #180 tabs 08/29/24 acarbose 25 mg tablet 25 mg PO TID #180 tabs 09/27/24 semaglutide 2 mg/dose (8 mg/3 mL) See Rx Instructions .Route 10/16/24 subcutaneous pen injector (Ozempic) .COMPLEX #9 mL cefdinir 300 mg capsule 300 mg PO BID #14 caps 10/31/24 atorvastatin 20 mg tablet See Rx Instructions .Route 11/01/24 .COMPLEX #90 tabs montelukast 10 mg tablet See Rx Instructions .Route 02/17/25 .COMPLEX #30 tabs hydrocodone 5 mg-acetaminophen 325 1 tab PO Q6H PRN pain #14 tabs 04/10/25 mg tablet ondansetron 4 mg disintegrating 4 mg PO Q8H PRN nausea and 04/10/25 tablet vomiting #14 tabs tamsulosin 0.4 mg capsule 0.4 mg PO DAILY #10 caps 04/10/25 Allergies Allergy/AdvReac Type Severity Reaction Status Date / Time Iodinated Contrast Media Allergy ALGY-Difficulty Verified 04/10/25 09:29 Swallowing metformin Allergy pt states Verified 04/10/25 09:29 it feels like he has bugs crawling all over him Review of Systems Const: Denies: fever(s), chills, body aches, fatigue or malaise Card: Denies: chest pain Resp: Denies: dyspnea GI: Reports: abdominal pain, nausea and vomiting; Denies: hematemesis, diarrhea, constipation or change in bowel habits : Reports: flank pain and difficulty urinating; Denies: dysuria, urinary frequency, urinary urgency, urinary dribbling or hematuria Musc: Reports: back pain (R flank); Denies: neck pain, extremity pain, extremity swelling, joint pain, joint swelling or joint redness Skin/Breast: Denies: rash Neuro: Denies: headache(s), numbness in extremities, weakness in extremities, sensory changes or dizziness PFSH ED PFSH: Medical History Vitamin D deficiency Minor depression KRIS (obstructive sleep apnea) noncompliant with CPAP CKD stage 3 secondary to diabetes Hypertension Gout Whipple disease Thyroid nodule Uncontrolled type 2 diabetes with neuropathy Hyperlipidemia Diabetic neuropathy Hypothyroid Surgical History Hx of colonoscopy 10 years ago Hx of cholecystectomy Family History Mother Hypertension Father Hypertension Social History Smoking and tobacco/nicotine status: never used tobacco/nicotine Alcohol intake: current Alcohol intake frequency: holidays/special occasions only Alcohol type: beer and hard liquor Substance/Drug Use: never Physical Exam Const: COMMON NORMALS: no acute distress, patient oriented x3, no limitations, alert and well nourished GENERAL APPEARANCE: cooperative NUTRITIONAL APPEARANCE: obese ORIENTATION/CONSCIOUSNESS: Yes awake, Yes oriented to person, Yes oriented to place and Yes oriented to time Eye: COMMON NORMALS: no scleral icterus Resp: COMMON NORMALS: normal respiratory effort and clear to auscultation bilaterally AUSCULTATION: clear to auscultation bilaterally Cardio: COMMON NORMALS: regular rate and regular rhythm RATE: regular rate RHYTHM: regular rhythm GI: COMMON NORMALS: Normal to inspection, nondistended, normoactive bowel sounds present, Soft to palpation and no masses INSPECTION: Yes normal to inspection AUSCULTATION: Yes normoactive bowel sounds PALPATION: Yes Soft to palpation, Yes Tenderness to palpation present (GI) (R upper/lateral abdomen, R flank), No Guarding due to palpation present (GI) and No Rigid due to palpation : BLADDER/KIDNEY EXAM: Yes CVA tenderness on the right Back/Pelvis: COMMON NORMALS: thoracic and lumbar spine normal to inspection, no thoracic nor lumbar tenderness, thoraco-lumbar ROM normal and straight leg raise negative bilaterally GENERAL BACK: Yes CVA tenderness Extremity: GENERAL: Yes normal exam except as noted Neuro: JUAN COMA SCALE: document GCS findings [place] coma scale eye opening: Spontaneous Juan coma scale verbal response: Orientated [place] coma scale motor response: Obey commands [place] coma scale total score: 15 COMMON NORMALS: patient oriented x3, moves all extremities, no focal motor deficits, no sensory deficits noted and gait normal SENSORIUM/ORIENTATION: Yes alert, Yes oriented to person, Yes oriented to place and Yes oriented to time Skin: COMMON NORMALS: no rashes or lesions noted GENERAL SKIN EXAM: no rashes or lesions noted Course Vital Signs: Vital signs: Vital Signs Temperature 97.8 F 04/10/25 09:26 Pulse Rate 79 04/10/25 13:59 Respiratory Rate 18 04/10/25 13:59 Blood Pressure 178/83 04/10/25 13:59 Pulse Oximetry 96 04/10/25 13:59 Oxygen Delivery Me thod Room Air 04/10/25 13:59 [facility] - Male Medical Decision Making Patient is a 64-year-old male here for abrupt onset right flank/right abdominal pain beginning early this morning. History was concerning for possible urolithiasis thus labs, UA, imaging were obtained. CT scan does show a 3.5 mm distal ureter stone possibly may have recently passed or almost passed into the bladder. Blood work is fairly unremarkable apart from a mild bump in his creatinine at 1.7. He was given fluids here. UA with hematuria as expected but does not appear infected. Patient had complained of difficulty with urination thus bladder scan was obtained and only showed 20 to 30 mL in his bladder. After medications he was easily able to urinate here. Will place him on pain/nausea medications and have him strain his urine and follow-up with urology. We will have him follow-up with primary care to recheck his creatinine. Case discussed with Dr. Guardado who agrees with care plan here. Of note, he was very hypertensive upon arrival. He blames this on pain and not taking any of his blood pressure medications this morning. This is trended down after pain was controlled and he was given his blood pressure medications. Medical Records I reviewed the patient's medical records. Lab Data I reviewed the patient's lab results. 04/10/25 09:43 04/10/25 09:43 Radiology Impressions Abdomen/Pelvis CT 04/10/25 09:39 IMPRESSION: 1. Mild RIGHT hydronephrosis with inflammatory stranding and edema about the RIGHT kidney. Small calculus at the distal RIGHT UVJ/bladder may have recently passed or almost passed. This measures 3.4 mm Laboratory Results WBC 12.93 10^3/uL (3.29-11.43) H 04/10/25 09:43 RBC 5.15 10^6/uL (3.85-5.65) 04/10/25 09:43 Hgb 15.10 g/dL (11.27-16.99) 04/10/25 09:43 Hct 45.0 % (37-53) 04/10/25 09:43 MCV 87.4 fl (82-101) 04/10/25 09:43 MCH 29.3 pg (27-33) 04/10/25 09:43 MCHC 33.6 g/dL (30-55) 04/10/25 09:43 RDW 12.3 % (12.1-15.1) 04/10/25 09:43 Plt Count 296 10^3/cmm (157-399) 04/10/25 09:43 MPV 10.1 fL (7.4-10.4) 04/10/25 09:43 Neut % (Auto) 87.3 % 04/10/25 09:43 Lymph % (Auto) 7.0 % 04/10/25 09:43 [place] % (Auto) 4.6 % 04/10/25 09:43 Eos % (Auto) 0.1 % 04/10/25 09:43 Baso % (Auto) 0.5 % 04/10/25 09:43 Neut # (Auto) 11.30 10^3/uL (1.8-7.7) H 04/10/25 09:43 Lymph # (Auto) 0.9 10^3/uL (0.8-4.8) 04/10/25 09:43 [place] # (Auto) 0.6 10^3/uL (0.2-0.9) 04/10/25 09:43 Eos # (Auto) 0.0 10^3/uL (0.0-0.8) 04/10/25 09:43 Baso # (Auto) 0.1 10^3/uL (0.0-0.1) 04/10/25 09:43 Nucleated RBC % (auto) 0 % 04/10/25 09:43 Nucleated RBCs # 0.0 /100WBC 04/10/25 09:43 Sodium 138 mmol/L (136-145) 04/10/25 09:43 Potassium 4.2 mmol/L (3.5-5.1) 04/10/25 09:43 Chloride 104 mmol/L (98-107) 04/10/25 09:43 Carbon Dioxide 25 mmol/L (22-29) 04/10/25 09:43 Anion Gap 13.2 (5-19) 04/10/25 09:43 BUN 18 mg/dL (8-23) 04/10/25 09:43 Creatinine 1.7 mg/dL (0.7-1.2) H 04/10/25 09:43 GFR Calculation 40.5 mL/min (90-130) L 04/10/25 09:43 Glucose 253 mg/dL (65-115) H 04/10/25 09:43 Calculated Osmolality 296 mOsm/kg (285-295) H 04/10/25 09:43 Calcium 9.3 mg/dL (8.5-10.5) 04/10/25 09:43 Total Bilirubin 0.8 mg/dL (0.15-1.2) 04/10/25 09:43 AST 16 U/L (0-40) 04/10/25 09:43 ALT 21 U/L (0-41) 04/10/25 09:43 Alkaline Phosphatase 116 U/L (40-130) 04/10/25 09:43 Total Protein 7.1 g/dL (6.6-8.7) 04/10/25 09:43 Albumin 3.8 g/dL (3.5-5.2) 04/10/25 09:43 Globulin 3.3 g/dL (1.3-4.6) 04/10/25 09:43 Urine Color Yellow (Yellow) 04/10/25 11:21 Urine Appearance Clear (CLEAR) 04/10/25 11:21 Urine pH 6.0 (5-7) 04/10/25 11:21 Ur Specific [place] 1.024 (1.005-1.030) 04/10/25 11:21 Urine Protein 3+ (Negative) A 04/10/25 11:21 Urine Glucose (UA) 3+ (Normal) H 04/10/25 11:21 Urine Ketones Trace (Negative) 04/10/25 11:21 Urine Blood 1+ (Negative) A 04/10/25 11:21 Urine Nitrate Negative (Negative) 04/10/25 11:21 Urine Bilirubin Negative (Negative) 04/10/25 11:21 Urine Urobilinogen 1.0 mg/dL (Negative) 04/10/25 11:21 Ur Leukocyte Esterase Negative (Negative) 04/10/25 11:21 Urine RBC 3-5 /hpf (0-2) 04/10/25 11:21 Urine WBC 0-5 /hpf (0-5) 04/10/25 11:21 Ur Squamous Epith Cells 0-5 /hpf (0-5) 04/10/25 11:21 Amorphous Sediment Not Reportable 04/10/25 11:21 Urine Bacteria None seen /hpf (NONE) 04/10/25 11:21 Hyaline Casts 0.81 /lpf 04/10/25 11:21 All radiology interpretation(s) finalized by discharge Discharge Plan Discharge Patient Disposition: Home Clinical Impression: Right ureteral stone, MC (acute kidney injury) Hypertension Qualifiers: Hypertension type: unspecified Qualified Code(s): I10 - Essential (primary) hypertension Condition: Stable Prescriptions: New hydrocodone-acetaminophen 5-325 mg tablet 1 tab PO Q6H PRN (Reason: pain) Qty: 14 0RF ondansetron 4 mg tablet,disintegrating 4 mg PO Q8H PRN (Reason: nausea and vomiting) Qty: 14 0RF tamsulosin 0.4 mg capsule 0.4 mg PO DAILY Qty: 10 0RF No Action aspirin [Adult Aspirin Regimen] 81 mg tablet,delayed release (DR/EC) 81 mg PO DAILY acarbose 25 mg tablet 25 mg PO TID Qty: 180 0RF cefdinir 300 mg capsule 300 mg PO BID Qty: 14 0RF vitamin B complex Tablet 1 tab PO DAILY cholecalciferol (vitamin D3) 125 mcg (5,000 unit) capsule 125 mcg PO DAILY escitalopram oxalate 10 mg tablet 10 mg PO DAILY insulin glargine [Lantus Solostar U-100 Insulin] 100 unit/mL (3 mL) insulin pen 40 unit SUBCUT DAILY Allergy Relief (loratadine) 10 mg capsule 10 mg PO DAILY coQ10 (ubiquinol) [Qunol Jarett CoQ10] 100 mg capsule 100 mg PO DAILY (DME) FreeStyle Chandler 2 Sensor Kit See Rx Instructions .MEDSUPPLY Qty: 2 11RF Rx Instructions: Change every 14 days; Use as directed to check blood sugar amlodipine 5 mg tablet 5 mg PO QDAY Qty: 90 3RF valsartan 160 mg tablet 160 mg PO BID Qty: 180 3RF (DME) pen needle, diabetic 31 gauge x 1/4 needle See Rx Instructions .ROUTE .MEDSUPPLY Qty: 50 3RF Rx Instructions: As directed levothyroxine 100 mcg tablet See Rx Instructions .ROUTE .COMPLEX Qty: 90 1RF Dose Instruction: TAKE 1 TABLET BY MOUTH EVERY DAY Rx Instructions: TAKE 1 TABLET BY MOUTH EVERY DAY carvedilol 6.25 mg tablet 6.25 mg PO BID Qty: 180 3RF isosorbide mononitrate 30 mg tablet extended release 24 hr 30 mg PO DAILY Qty: 90 3RF Ozempic 2 mg/dose (8 mg/3 mL) pen injector See Rx Instructions .ROUTE .COMPLEX Qty: 9 1RF Dose Instruction: inject 2mg (0.75ml) SUBCUTANEOUSLY EVERY 7 DAYS Rx Instructions: inject 2mg (0.75ml) SUBCUTANEOUSLY EVERY 7 DAYS atorvastatin 20 mg tablet See Rx Instructions .ROUTE .COMPLEX Qty: 90 0RF Dose Instruction: TAKE 1 TABLET BY MOUTH EVERY DAY Rx Instructions: TAKE 1 TABLET BY MOUTH EVERY DAY montelukast 10 mg tablet See Rx Instructions .ROUTE .COMPLEX Qty: 30 2RF Dose Instruction: TAKE ONE TABLET BY MOUTH ONCE DAILY Rx Instructions: TAKE ONE TABLET BY MOUTH ONCE DAILY Discharge Orders: Discharge ED (Routine); Ordered 04/10/25 Ordered By: Jacquelyn Gleason Referrals: Evans Anderson DO [Primary Care Provider, Family Practice] Patient Instructions: Opioid Safety, Pain Management, Patient Portal & Shahzad Instructions Activity Restrictions/Additional Instructions: As we discussed, your CT scan did show a small 3.5 mm stone at the distal ureter and possibly already entering into the bladder. We will place you on pain and nausea medications as well as Flomax in case it is hung up at your distal ureter. This should pass on its own. Push fluids is much as possible. We will have you begin straining your urine and will follow-up with urology. You may return to the emergency department at anytime for worsening or uncontrollable pain, repetitive episodes of vomiting, fevers, or any other concerns you may have. I would like your kidney labs rechecked through primary care in a week or so. Print Language: Taiwanese Coding Level of Care Code ED Community Service Aide for Chg Fwd Documented by User: Sumit Heart, 04/10/25 14:45 HPI - Male Genitourinary General: Chief complaint: Urogenital-Male Stated complaint: rt mid back pain / urinary Time Seen by Provider: 04/10/25 09:34 Related Data Home Medications ?Medication ?Instructions ?Recorded ?Confirmed aspirin 81 mg tablet,delayed 81 mg PO DAILY 12/17/19 10/31/24 release (Adult Aspirin Regimen) cholecalciferol (vitamin D3) 125 125 mcg PO DAILY 07/17/24 10/31/24 mcg (5,000 unit) capsule coQ10 (ubiquinol) 100 mg capsule 100 mg PO DAILY 07/17/24 10/31/24 (Qunol Jarett CoQ10) escitalopram oxalate 10 mg tablet 10 mg PO DAILY 07/17/24 10/31/24 insulin glargine 100 unit/mL (3 40 unit SUBCUT DAILY 07/17/24 10/31/24 mL) subcutaneous pen (Lantus Solostar U-100 Insulin) loratadine 10 mg capsule (Allergy 10 mg PO DAILY 07/17/24 10/31/24 Relief (loratadine)) vitamin B complex 1 tab PO DAILY 07/17/24 10/31/24 Previous Rx's ?Medication ?Instructions ?Recorded pen needle, diabetic 31 gauge x #50 ea 11/16/21/ flash glucose sensor (FreeStyle #2 ea 07/18/24 Chandler 2 Sensor kit) amlodipine 5 mg tablet 5 mg PO QDAY #90 tabs 07/24/24 levothyroxine 100 mcg tablet See Rx Instructions .Route 07/30/24 .COMPLEX #90 tabs carvedilol 6.25 mg tablet 6.25 mg PO BID #180 tabs 08/12/24 isosorbide mononitrate 30 mg 30 mg PO DAILY #90 tabs 08/12/24 tablet,extended release 24 hr valsartan 160 mg tablet 160 mg PO BID #180 tabs 08/29/24 acarbose 25 mg tablet 25 mg PO TID #180 tabs 09/27/24 semaglutide 2 mg/dose (8 mg/3 mL) See Rx Instructions .Route 10/16/24 subcutaneous pen injector (Ozempic) .COMPLEX #9 mL cefdinir 300 mg capsule 300 mg PO BID #14 caps 10/31/24 atorvastatin 20 mg tablet See Rx Instructions .Route 11/01/24 .COMPLEX #90 tabs montelukast 10 mg tablet See Rx Instructions .Route 02/17/25 .COMPLEX #30 tabs hydrocodone 5 mg-acetaminophen 325 1 tab PO Q6H PRN pain #14 tabs 04/10/25 mg tablet ondansetron 4 mg disintegrating 4 mg PO Q8H PRN nausea and 04/10/25 tablet vomiting #14 tabs tamsulosin 0.4 mg capsule 0.4 mg PO DAILY #10 caps 04/10/25 Allergies Allergy/AdvReac Type Severity Reaction Status Date / Time Iodinated Contrast Media Allergy ALGY-Difficulty Verified 04/10/25 09:29 Swallowing metformin Allergy pt states Verified 04/10/25 09:29 it feels like he has bugs crawling all over him PFSH ED PFSH: Medical History Vitamin D deficiency Minor depression KRIS (obstructive sleep apnea) noncompliant with CPAP CKD stage 3 secondary to diabetes Hypertension Gout Whipple disease Thyroid nodule Uncontrolled type 2 diabetes with neuropathy Hyperlipidemia Diabetic neuropathy Hypothyroid Surgical History Hx of colonoscopy 10 years ago Hx of cholecystectomy Family History Mother Hypertension Father Hypertension Social History Smoking and tobacco/nicotine status: never used tobacco/nicotine Alcohol intake: current Alcohol intake frequency: holidays/special occasions only Alcohol type: beer and hard liquor Substance/Drug Use: never Physical Exam Neuro: JUAN COMA SCALE: document GCS findings Juan coma scale total score: 15 Course Vital Signs: Vital signs: Vital Signs Temperature 97.8 F 04/10/25 09:26 Pulse Rate 79 04/10/25 13:59 Respiratory Rate 18 04/10/25 13:59 Blood Pressure 178/83 04/10/25 13:59 Pulse Oximetry 96 04/10/25 13:59 Oxygen Delivery Me thod Room Air 04/10/25 13:59 MDM - Male Medical Decision Making Patient is a 64-year-old male here for abrupt onset right flank/right abdominal pain beginning early this morning. History was concerning for possible urolithiasis thus labs, UA, imaging were obtained. CT scan does show a 3.5 mm distal ureter stone possibly may have recently passed or almost passed into the bladder. Blood work is fairly unremarkable apart from a mild bump in his creatinine at 1.7. He was given fluids here. UA with hematuria as expected but does not appear infected. Patient had complained of difficulty with urination thus bladder scan was obtained and only showed 20 to 30 mL in his bladder. After medications he was easily able to urinate here. Will place him on pain/nausea medications and have him strain his urine and follow-up with urology. We will have him follow-up with primary care to recheck his creatinine. Case discussed with Dr. Guardado who agrees with care plan here. Of note, he was very hypertensive upon arrival. He blames this on pain and not taking any of his blood pressure medications this morning. This is trended down after pain was controlled and he was given his blood pressure medications. Chart reviewed and patient discussed with midlevel. Agree with assessment and plan. Lab Data 04/10/25 09:43 04/10/25 09:43 Radiology Impressions Abdomen/Pelvis CT 04/10/25 09:39 IMPRESSION: 1. Mild RIGHT hydronephrosis with inflammatory stranding and edema about the RIGHT kidney. Small calculus at the distal RIGHT UVJ/bladder may have recently passed or almost passed. This measures 3.4 mm Laboratory Results WBC 12.93 10^3/uL (3.29-11.43) H 04/10/25 09:43 RBC 5.15 10^6/uL (3.85-5.65) 04/10/25 09:43 Hgb 15.10 g/dL (11.27-16.99) 04/10/25 09:43 Hct 45.0 % (37-53) 04/10/25 09:43 MCV 87.4 fl (82-101) 04/10/25 09:43 MCH 29.3 pg (27-33) 04/10/25 09:43 MCHC 33.6 g/dL (30-55) 04/10/25 09:43 RDW 12.3 % (12.1-15.1) 04/10/25 09:43 Plt Count 296 10^3/cmm (157-399) 04/10/25 09:43 MPV 10.1 fL (7.4-10.4) 04/10/25 09:43 Neut % (Auto) 87.3 % 04/10/25 09:43 Lymph % (Auto) 7.0 % 04/10/25 09:43 [place] % (Auto) 4.6 % 04/10/25 09:43 Eos % (Auto) 0.1 % 04/10/25 09:43 Baso % (Auto) 0.5 % 04/10/25 09:43 Neut # (Auto) 11.30 10^3/uL (1.8-7.7) H 04/10/25 09:43 Lymph # (Auto) 0.9 10^3/uL (0.8-4.8) 04/10/25 09:43 [place] # (Auto) 0.6 10^3/uL (0.2-0.9) 04/10/25 09:43 Eos # (Auto) 0.0 10^3/uL (0.0-0.8) 04/10/25 09:43 Baso # (Auto) 0.1 10^3/uL (0.0-0.1) 04/10/25 09:43 Nucleated RBC % (auto) 0 % 04/10/25 09:43 Nucleated RBCs # 0.0 /100WBC 04/10/25 09:43 Sodium 138 mmol/L (136-145) 04/10/25 09:43 Potassium 4.2 mmol/L (3.5-5.1) 04/10/25 09:43 Chloride 104 mmol/L (98-107) 04/10/25 09:43 Carbon Dioxide 25 mmol/L (22-29) 04/10/25 09:43 Anion Gap 13.2 (5-19) 04/10/25 09:43 BUN 18 mg/dL (8-23) 04/10/25 09:43 Creatinine 1.7 mg/dL (0.7-1.2) H 04/10/25 09:43 GFR Calculation 40.5 mL/min (90-130) L 04/10/25 09:43 Glucose 253 mg/dL (65-115) H 04/10/25 09:43 Calculated Osmolality 296 mOsm/kg (285-295) H 04/10/25 09:43 Calcium 9.3 mg/dL (8.5-10.5) 04/10/25 09:43 Total Bilirubin 0.8 mg/dL (0.15-1.2) 04/10/25 09:43 AST 16 U/L (0-40) 04/10/25 09:43 ALT 21 U/L (0-41) 04/10/25 09:43 Alkaline Phosphatase 116 U/L (40-130) 04/10/25 09:43 Total Protein 7.1 g/dL (6.6-8.7) 04/10/25 09:43 Albumin 3.8 g/dL (3.5-5.2) 04/10/25 09:43 Globulin 3.3 g/dL (1.3-4.6) 04/10/25 09:43 Urine Color Yellow (Yellow) 04/10/25 11:21 Urine Appearance Clear (CLEAR) 04/10/25 11:21 Urine pH 6.0 (5-7) 04/10/25 11:21 Ur Specific [place] 1.024 (1.005-1.030) 04/10/25 11:21 Urine Protein 3+ (Negative) A 04/10/25 11:21 Urine Glucose (UA) 3+ (Normal) H 04/10/25 11:21 Urine Ketones Trace (Negative) 04/10/25 11:21 Urine Blood 1+ (Negative) A 04/10/25 11:21 Urine Nitrate Negative (Negative) 04/10/25 11:21 Urine Bilirubin Negative (Negative) 04/10/25 11:21 Urine Urobilinogen 1.0 mg/dL (Negative) 04/10/25 11:21 Ur Leukocyte Esterase Negative (Negative) 04/10/25 11:21 Urine RBC 3-5 /hpf (0-2) 04/10/25 11:21 Urine WBC 0-5 /hpf (0-5) 04/10/25 11:21 Ur Squamous Epith Cells 0-5 /hpf (0-5) 04/10/25 11:21 Amorphous Sediment Not Reportable 04/10/25 11:21 Urine Bacteria None seen /hpf (NONE) 04/10/25 11:21 Hyaline Casts 0.81 /lpf 04/10/25 11:21 Discharge Plan Discharge Patient Disposition: Home Clinical Impression: Right ureteral stone, MC (acute kidney injury) Hypertension Qualifiers: Hypertension type: unspecified Qualified Code(s): I10 - Essential (primary) hypertension Condition: Stable Prescriptions: New hydrocodone-acetaminophen 5-325 mg tablet 1 tab PO Q6H PRN (Reason: pain) Qty: 14 0RF ondansetron 4 mg tablet,disintegrating 4 mg PO Q8H PRN (Reason: nausea and vomiting) Qty: 14 0RF tamsulosin 0.4 mg capsule 0.4 mg PO DAILY Qty: 10 0RF No Action aspirin [Adult Aspirin Regimen] 81 mg tablet,delayed release (DR/EC) 81 mg PO DAILY acarbose 25 mg tablet 25 mg PO TID Qty: 180 0RF cefdinir 300 mg capsule 300 mg PO BID Qty: 14 0RF vitamin B complex Tablet 1 tab PO DAILY cholecalciferol (vitamin D3) 125 mcg (5,000 unit) capsule 125 mcg PO DAILY escitalopram oxalate 10 mg tablet 10 mg PO DAILY insulin glargine [Lantus Solostar U-100 Insulin] 100 unit/mL (3 mL) insulin pen 40 unit SUBCUT DAILY Allergy Relief (loratadine) 10 mg capsule 10 mg PO DAILY coQ10 (ubiquinol) [Qunol Jarett CoQ10] 100 mg capsule 100 mg PO DAILY (DME) FreeStyle [place] 2 Sensor Kit See Rx Instructions .MEDSUPPLY Qty: 2 11RF Rx Instructions: Change every 14 days; Use as directed to check blood sugar amlodipine 5 mg tablet 5 mg PO QDAY Qty: 90 3RF valsartan 160 mg tablet 160 mg PO BID Qty: 180 3RF (DME) pen needle, diabetic 31 gauge x 1/4 needle See Rx Instructions .ROUTE .MEDSUPPLY Qty: 50 3RF Rx Instructions: As directed levothyroxine 100 mcg tablet See Rx Instructions .ROUTE .COMPLEX Qty: 90 1RF Dose Instruction: TAKE 1 TABLET BY MOUTH EVERY DAY Rx Instructions: TAKE 1 TABLET BY MOUTH EVERY DAY carvedilol 6.25 mg tablet 6.25 mg PO BID Qty: 180 3RF isosorbide mononitrate 30 mg tablet extended release 24 hr 30 mg PO DAILY Qty: 90 3RF Ozempic 2 mg/dose (8 mg/3 mL) pen injector See Rx Instructions .ROUTE .COMPLEX Qty: 9 1RF Dose Instruction: inject 2mg (0.75ml) SUBCUTANEOUSLY EVERY 7 DAYS Rx Instructions: inject 2mg (0.75ml) SUBCUTANEOUSLY EVERY 7 DAYS atorvastatin 20 mg tablet See Rx Instructions .ROUTE .COMPLEX Qty: 90 0RF Dose Instruction: TAKE 1 TABLET BY MOUTH EVERY DAY Rx Instructions: TAKE 1 TABLET BY MOUTH EVERY DAY montelukast 10 mg tablet See Rx Instructions .ROUTE .COMPLEX Qty: 30 2RF Dose Instruction: TAKE ONE TABLET BY MOUTH ONCE DAILY Rx Instructions: TAKE ONE TABLET BY MOUTH ONCE DAILY Discharge Orders: Discharge ED (Routine); Ordered 04/10/25 Ordered By: Jacquelyn Gleason Referrals: Evans Anderson DO [Primary Care Provider, Family Practice] Patient Instructions: Opioid Safety, Pain Management, Patient Portal & Shahzad Instructions Activity Restrictions/Additional Instructions: As we discussed, your CT scan did show a small 3.5 mm stone at the distal ureter and possibly already entering into the bladder. We will place you on pain and nausea medications as well as Flomax in case it is hung up at your distal ureter. This should pass on its own. Push fluids is much as possible. We will have you begin straining your urine and will follow-up with urology. You may return to the emergency department at anytime for worsening or uncontrollable pain, repetitive episodes of vomiting, fevers, or any other concerns you may have. I would like your kidney labs rechecked through primary care in a week or so. Print Language: Taiwanese Coding Level of Care Code ED Community Service Aide for Ben Reeder
[2025-04-10 10:03] LABS: Hematocrit 45.0 % (37-53); Hemoglobin 15.10 g/dL (11.27-16.99); Mean Corpuscular HGB Conc 33.6 g/dL (30-55); Mean Corpuscular Hemoglobin 29.3 pg (27-33); Mean Corpuscular Volume 87.4 fl (82-101); Nucleated Red Blood Cells % 0 %; Platelet Count 296 10^3/cmm (157-399); Red Blood Count 5.15 10^6/uL (3.85-5.65); White Blood Count 12.93 10^3/uL (3.29-11.43)
[2025-04-10] MEDS: ondansetron 2 mg/ML SDV 2 mL 4 MG IVP (10:17)
[2025-04-10] MEDS: morphine 4 mg/mL SDV 1 mL IVP ×2 (10:19→13:19)
--- OUTSIDE RECORDS SUMMARY | 2025-04-10 10:21 | XMS_ITS | Encounter Summary ---
Author Organization [facility] Address [address] [place] [address] Care Team Providers Care Personalization Specialist Name Role Phone Abraham Painting DO Primary Care Provid er Unavailable Encounter Details Date Type Department Care Team (Late st Contact Info) Description 01/02/2003 Outpatient Historical [facility] Gen Spec Surg [address] [phone] Jd Blackmon MD [address] [place] [phone] CHOLELITHIASIS NOS (Primary Dx) Social History Tobacco Use Types Packs/Day Years Used Date Smoking Tobacco: Never Assessed Sex and Gender Information Value Date Recorded Sex Assigned at Not on file 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
--- OUTSIDE RECORDS SUMMARY | 2025-04-10 10:21 | XMS_ITS | Encounter Summary ---
Author Organization [facility] Address [address] [place] [address] Care Team Providers Care Audio Visual Facilities Engineer Name Role Phone Abraham Painting DO Primary Care Provid er Unavailable Encounter Details Date Type Department Care Team (Latest Contact Info) Description 01/02/2003 Outpatient Historical [facility] Gen Spec S[place] 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
--- OUTSIDE RECORDS SUMMARY | 2025-04-10 10:21 | XMS_ITS | Encounter Summary ---
Author Organization [facility] Address [address] [place] [address] Care Team Providers Care Wrist Closer Name Role Phone Abraham Painting DO Primary Care Provid er Unavailable Encounter Details Date Type Department Care Team (Late st Contact Info) Description 02/27/2001 Outpatient Historical [facility] Imaging Services-[facility] [address] [place] [address] Social History Tobacco Use Types Packs/Day Years Used Date Smoking Tobacco: Never Assessed Sex and Gender Information Value Date Recorded Sex Assigned at Not on file 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
--- OUTSIDE RECORDS SUMMARY | 2025-04-10 10:21 | XMS_ITS | Clinical Summary ---
Author Organization [facility] Address [address] Attn: Epic Prelude ADT SANDY ELIZALDE [address] Care Team Providers Care Schedule Analyst Name Role Phone Hermann Abraham Atif DO Primary Care Provid er Unavailable Allergies Active Allergy Reactions Criticality Noted Date Comments Iodinated Contrast Media Anaphylaxis High 06/11/2018 Iodine Other (See Comments) 03/09/2018 Swells throat Medications cholecalciferol , vitamin D3, (Maximum D3) 325 mcg (13,000 unit) Capsule TAKE 1 CAPSULE BY MOUTH ONCE A WEEK 0 Active aspirin (ECOTRIN EC) 81 mg Tablet, Delayed Release (E.C.) Take 81 mg by mouth daily. 8 Active OTHER Provider please include Medication name, dose, route and frequency . 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 8 Active topiramate (TOPAMAX) 50 mg tablet Take 50 mg by mouth daily . 8 Active semaglutide (OZEMPIC SUBCUT) Inject 2 mg by subcutaneous injection every 7 days. Inject 2mg by subq injection once weekly Active allopurinoL (ZYLOPRIM) 100 mg tabletIndicatio ns:Idiopathic chronic gout of multiple sites with tophus Take 2 Tablets (200 mg) by mouth daily. 180 Tablet 2 5 Active allopurinoL (ZYLOPRIM) 300 mg tabletIndicatio ns:Idiopathic chronic gout of multiple sites with tophus Take 1 Tablet (300 mg) by mouth daily. 90 Tablet 3 5 Active predniSONE (DELTASONE) 50 mg tablet Take 1 Tablet (50 mg) by mouth 1 time daily as needed (gout flare up). Call MD if need more than 4 consecutive days 30 Tablet 5 Active montelukast (SINGULAIR) 10 mg tablet Take 1 Tablet by mouth daily. 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 [place] [address] Jd Lucia MD PATHOLOGY 5 7:40 AM CDT - 5 8:00 AM CDT Surgery [facility] [address] [place] [address] Jd Lucia MD ESOPHAGOGASTRODUODENOSCOPY 5 6:34 AM CDT - 5 8:12 AM CDT Hospital Encounter [facility] [address] [place] [address] Jd Lucia MD Discharge Disposition: Home or Self Care from Last 3 Months Family History Medical [...] drink = 0.6 oz pur e alcohol) Feeling Safe Answer Date Recorded Are you in a relationship wi th someone who hurts you emotionally and/or physically? 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 MILL OPERATOR Gender Identity Not on file Sexual Orientation Not on file Last Filed Vital Signs Vital Sign Reading Time Taken Comments Blood Pressure 152/87 01/31/2025 8:04 AM CDT Pulse 83 01/31/2025 8:04 AM CDT Temperature 36.7 C (98.1 F) 05/08/2018 9:41 AM GRAPHITE MILL OPERATOR Respiratory Rate 22 01/31/2025 8:04 AM CDT Oxygen Saturation 93% 01/31/2025 8:04 AM CDT Inhaled Oxygen Concentration - - Weight 129.3 kg (285 lb) 01/14/2025 11:17 AM CDT Height 190.5 cm (6' 3 ) 01/14/2025 11:17 AM CDT Body Mass Index 35.62 01/14/2025 11:17 AM CDT Plan of Treatment Upcoming Encounters Date Type Department Care Team (Late st Contact Info) Description 06/27/2025 9:20 AM GRAPHITE MILL OPERATOR Office Visit [facility]- [place] [address] [place] [address] Juan F Poe MD [address] [place] [phone] Health Maintenance Due Date Last Done Comments DIABETES ANNUAL FOOT EXAM 1976 DIABETES ANNUAL RETINAL EXAM 1976 DTAP/TDAP/TD VACCINES (1 - Tdap) 1977 PNEUMOCOCCAL VACCINE 50+ YEA RS (1 of 2 - PCV) 1977 FIT-DNA Q 3 years 07/26/2003 FIT/FOBT Q 1 year 07/26/2003 Flex Sig/CT Colonography Q 5 years 07/26/2003 RSV VACCINE (60+ or ) (1 - Risk 50-74 years 1-dose series) 2008 ZOSTER VACCINE (1 of 2) 2008 COLORECTAL SCREENING 09/30/2017 10/01/2007 Colorectal Cancer Screening 09/30/2017 DIABETES HBA1C Q 6 MONTHS 12/20/2023 06/21/2023, DIABETES MICROALBUMIN ANNUAL SCREEN 06/21/202406/21, 11/11/2022 LDL CHOLESTEROL ANNUAL 06/21/2024 4, 11/11/2022, 10/15/2021 INFLUENZA VACCINE (#1) 2024 Procedures Procedure Name Priority Date/Time Associated Diagnosis Comments UPPER ENDOSCOPY REPORT 7:44 AM CDT PATHOLOGY Pathology 01/31/2025 7:42 AM CDT [place] ESOPHAGOGASTRODUODENOSCOP Y TRANSORAL DIAGNOSTIC 01/31/2025 7:40 AM CDT With biopsies for whipples disease, H pylori Whipple's disease Case Notes Procedure :EGD Special Notes: PAT Dx: With biopsies for whipples disease, H pylori Whipple's disease BT:NONE BT managed by: Diabetic: YES Diabetic/WT med:Ozempic (Semaglutide) LOC & REASON:WS BMI: 36.48 Last Procedure date & location Referring Provider Evans Anderson DO GI Doc:Any Insurance: [employer] Last GI appt 11/25 [place] MICROALBUMIN/CREATININE RATI O, RANDOM UR Routine 06/21/2023 LIPID PANEL Routine 06/21/2023 HEMOGLOBIN A1C Routine 06/21/2023 from Last 3 Months or Most Recently Relevant to Health Maintenance Results * UPPER ENDOSCOPY REPORT (01/31/2025 7:44 AM CDT) Narrative Procedure Note Jd Lucia MD - 01/31/2025 7:44 AM CDT [facility] GI Patient Name: Janes Sharma Procedure Date: 01/31/2025 Date of : 1960 Admit Type: Outpatient Age: 64 Attending MD: Jd Lucia MD, Procedure: Upper GI endoscopy Indications: Hx of Whipple's disease, Abdominal bloating Providers: Jd Lucia MD Referring MD: Evans Anderson Medicines: Fentanyl 100 micrograms IV, Midazolam 5 mg IV Complications: No immediate complications. Procedure: Pre-Anesthesia Assessment: - Prior to the procedure, a History and Physical was performed, and patient medications and allergies were reviewed. The patient's tolerance of previous anesthesia was also reviewed. The risks and benefits of the procedure and the sedation options and risks were discussed with the patient. All questions were answered, and informed consent was obtained. Prior Anticoagulants: The patient has taken no anticoagulant or antiplatelet agents. ASA Grade Assessment: II - A patient with mild systemic disease. After reviewing the risks and benefits, the patient was deemed in satisfactory condition to undergo the procedure. After obtaining informed consent, the endoscope was passed under direct vision. Throughout the procedure, the patient's blood pressure, pulse, and oxygen saturations were monitored continuously. The Endoscope was introduced through the mouth, and advanced to the second part of duodenum. The upper GI endoscopy was accomplished without difficulty. The patient tolerated the procedure well. Estimated Blood Loss: Estimated blood loss was minimal. Findings: The Z-line was regular and was found 40 cm from the incisors. The examined esophagus was normal. The entire examined stomach was normal. Biopsies were taken with a cold forceps for Helicobacter pylori testing. The examined duodenum was normal. Biopsies were taken with a cold forceps for histology. Moderate Sedation: Moderate (conscious) sedation was administered by the nurse and supervised by the endoscopist. The patient's oxygen saturation, heart rate, blood pressure and response to care were monitored. Total physician intraservice time was 10 minutes. Impression: - Z-line regular, 40 cm from the incisors. - Normal esophagus. - Normal stomach. Biopsied. - Normal examined duodenum. Biopsied. Recommendation: - Patient has a contact number available for emergencies. The signs and symptoms of potential delayed complications were discussed with the patient. Return to normal activities tomorrow. Written discharge instructions were provided to the patient. - Resume previous diet. - Continue present medications. - Await pathology results. Jd Lucia MD 01/31/2025 7:44:16 AM Number of Addenda: 0 Note Initiated On: 01/31/2025 7:04 AM Scope Withdrawal Time Scope In: Scope Out: [address] [place] Jd Lucia MD GI PROCEDURE ORDERA BLES Final Result * PATHOLOGY (01/31/2025 7:42 AM CDT) CASE REPORT Surgical Pathology Report Case: [id number] Authorizing Provider: Jd Lucia Collected: 01/31/2025 07:42 AM MD Peter Ordering Location: [facility] Received: 01/31/2025 03:53 PM [facility] Pathologist: Zachery Day MD Specimens: A) - Stomach B) - Small Intestine, duodenum 8:01 AM CDT [facility] FINAL DIAGNOSIS A. Stomach, biopsy - benign gastric mucosa with mild active gastritis - H. pylori immunostain negative. / B. Small intestine, duodenum, biopsy - mild chronic duodenitis - PAS stains show no evidence for involvement by Whipple disease. Zachery Day MD [id number] 8:01 AM CDT [facility] at 0801 CDT DIAGNOSIS COMMENT After review of the H&E stained slide(s) an immunostain for Helicobacter was done on block A1 due to the clinical concern and the presence of gastritis and was negative. On the duodenal biopsy (B), PAS stains with and without diastase were done due to the reported history of Whipple disease. Staining appears confined to goblet cells and epithelial cells, with no abnormal macrophage population identified. 8:01 AM CDT [facility] GROSS DESCRIPTION A. Received in formalin labeled Edith -stomach rule H. pylori are multiple fragments of tissue, 1.5 x 1.0 x 0.2 cm in aggregate. The specimen is submitted in toto in A1. B. Received in formalin labeled Edith -duodenum history of Whipple are multiple fragments of tissue, 1.5 x 1.0 x 0.1 cm in aggregate. The specimen is submitted in toto in B1. Grossed by: Laurie Ramon, MS, PA (ASCP)CM 8:01 AM CDT [facility] OPERATIVE PROCEDURE 1: ESOPHAGOGASTRODUODENOSCO PY 8:01 AM CDT [facility] CLINICAL INFORMATION R/O H. Pylori With biopsies for whipples disease, H pylori Whipple's disease 8:01 AM CDT [facility] COMMENT The StyleTread voice-activated dictation system may have been used in the creation of this report. Inherent to this system is the possibility of errors in syntax, grammar, punctuation, or other areas that could impact interpretation. If there are interpretive questions about the report, please contact the performing pathologist. Unless gross only is specified in the diagnosis, the microscopic examination substantiates the above cited diagnosis. The performance characteristics of all immunohistochemical stains cited in this report (if any) were determined by the [facility] of [facility] in compliance with CLIA'88 regulations. Some of these tests rely on the use of analyte specific reagents and are subject to specific labeling requirements by the FDA. All controls show appropriate reactivity. This testing was developed by the [facility]. It has not been cleared or approved by the FDA. The FDA has determined that such clearance or approval is not necessary. 8:01 AM CDT [facility] Tissue ENTIRE STOMACH / Unknown Collection / Unknown 01/31/2025 7:42 AM CDT 01/31/2025 3:53 PM CDT Comment:R/O H. Pylori Tissue specimen (specimen) (Small Intestine) Collection / Unknown 01/31/2025 7:42 AM CDT 01/31/2025 3:53 PM CDT Comment:Hx whipples us Jd Lucia MD PATHOLOGY/CYTOLOGY ORDERABLES Final Result [facility] CLIA # [id number] [address] [place] [id number] * MICROALBUMIN/CREATININE RATIO, RANDOM UR (06/21/2023) ABSTRACTED [...] Most Recently Relevant to Health Maintenance [facility] Advance Directives For more information, please contact: [phone] * Full Code (Latest Code Status on File) Date Activated Date Inactivated Comments 01/31/2025 7:04 AM 01/31/2025 10:18 AM Care Teams Schedule Analyst Relationship Specialty Start Date End Date Abraham Painting DO PCP - General Family Practice 12/21/18
--- OUTSIDE RECORDS SUMMARY | 2025-04-10 10:21 | XMS_ITS | Encounter Summary ---
Author Organization [facility] Address [address] [place] [address] Care Team Providers Care Production Scheduler Name Role Phone Abraham Painting DO Primary Care Provid er Unavailable Encounter Details Date Type Department Care Team (Latest Contact Info) Description 08/05/1997 Outpatient Historical [facility] Dominic Montes MD NO ADDRESS ON FILE Central origin vertigo (Primary Dx) Social History Tobacco Use Types Packs/Day Years Used Date Smoking Tobacco: Never Assessed Sex and Gender Information Value Date Recorded Sex Assigned at Not on file 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
--- OUTSIDE RECORDS SUMMARY | 2025-04-10 10:21 | XMS_ITS | Encounter Summary ---
Author Organization [facility] Address [address] [place] [address] Care Team Providers Care Disaster Recovery Analyst Name Role Phone Abraham Painting DO Primary Care Provid er Unavailable Encounter Details Date Type Department Care Team (Latest Contact Info) Description 08/11/1997 Outpatient Historical [facility] Dominic Montes MD NO ADDRESS ON FILE Central origin vertigo (Primary Dx) Social History Tobacco Use Types Packs/Day Years Used Date Smoking Tobacco: Never Assessed Sex and Gender Information Value Date Recorded Sex Assigned at Not on file 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
--- OUTSIDE RECORDS SUMMARY | 2025-04-10 10:21 | XMS_ITS | Encounter Summary ---
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
--- OUTSIDE RECORDS SUMMARY | 2025-04-10 10:21 | XMS_ITS | Encounter Summary ---
Author Organization [facility] Address [address] [place] [address] Care Team Providers Care Manager Assembly Name Role Phone Abraham Painting DO Primary Care Provid er Unavailable Encounter Details Date Type Department Care Team (Late st Contact Info) Description 05/08/2003 Outpatient Historical [facility] Gen Spec Surg [address] [address] Jd Blackmon MD [address] [place] [address] CHOLELITHIASIS NOS (Primary Dx); SURGERY FOLLOWUP, UNSPEC Social History Tobacco Use Types Packs/Day Years Used Date Smoking Tobacco: Never Assessed Sex and Gender Information Value Date Recorded Sex Assigned at Not on file 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
--- OUTSIDE RECORDS SUMMARY | 2025-04-10 10:21 | XMS_ITS | Encounter Summary ---
Author Organization [facility] Address [address] [place] [address] Care Team Providers Care Dredge Operator Name Role Phone Abraham Painting DO Primary Care Provid er Unavailable Encounter Details Date Type Department Care Team (Latest Contact Info) Description 03/24/2004 Outpatient Historical [facility] [address] [place] [phone] Lalo Acosta MD [address], [place] [address] ABD/PEL SWELL/MASS/LUMP RUQ (Primary Dx) Social History Tobacco Use Types Packs/Day Years Used Date Smoking Tobacco: Never Assessed Sex and Gender Information Value Date Recorded Sex Assigned at Not on file 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
--- OUTSIDE RECORDS SUMMARY | 2025-04-10 10:21 | XMS_ITS | Encounter Summary ---
Author Organization [facility] Address [address] [place] [address] Care Team Providers Care Pickling Operator Name Role Phone Abraham Painting DO Primary Care Provid er Unavailable Encounter Details Date Type Department Care Team (Late st Contact Info) Description 04/06/2004 Outpatient Historical [facility] [address] 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
--- OUTSIDE RECORDS SUMMARY | 2025-04-10 10:21 | XMS_ITS | Encounter Summary ---
Author Organization [facility] Address [address] [place] [address] Care Team Providers Care Monitoring Specialist Name Role Phone Abraham Painting DO Primary Care Provid er Unavailable Encounter Details Date Type Department Care Team (Latest Contact Info) Description 01/27/2004 Outpatient Historical [facility] [address] [place] [address] Kike, Jayesh [address] [place] [address] [address] [place] [address] ABDOMINAL PAIN RUQ (Primary Dx) Social History Tobacco Use Types Packs/Day Years Used Date Smoking Tobacco: Never Assessed Sex and Gender Information Value Date Recorded Sex Assigned at Not on file Legal Sex Male 6:12 AM MARBLE POLISHER HAND Gender Identity Not on file Sexual Orientation Not on file documented as of this encounter Plan of Treatment Not on file documented as of this encounter Visit Diagnoses Diagnosis Abdominal pain, right upper quadrant- Primary documented in this encounter Care Teams Monitoring Specialist Relationship Specialty Start Date End Date Abraham Painting DO PCP - General Family Practice 12/21/18 documented as of this encounter
--- OUTSIDE RECORDS SUMMARY | 2025-04-10 10:21 | XMS_ITS | Encounter Summary ---
Author Organization [facility] Address [address] [place] [address] Care Team Providers Care Hyperbaric Technician Name Role Phone Abraham Painting DO Primary Care Provid er Unavailable Encounter Details Date Type Department Care Team (Late st Contact Info) Description 04/14/2003 Outpatient Historical [facility] Operating Room [address] [place] [address] Jd Blackmon MD 1967 [facility] [address] [place] [address] CHOLELITH W CHOLECYS NEC (Primary Dx) Social History Tobacco Use Types Packs/Day Years Used Date Smoking Tobacco: Never Assessed Sex and Gender Information Value Date Recorded Sex Assigned at Not on file 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
--- OUTSIDE RECORDS SUMMARY | 2025-04-10 10:21 | XMS_ITS | Encounter Summary ---
Author Organization [facility] Address [address] [place] [address] Care Team Providers Care Medical Surgery Nurse Name Role Phone GarimaAbraham DO Primary Care Provid er Unavailable Encounter Details Date Type Department Care Team (Late st Contact Info) Description 02/04/2025 Results Follow-Up [facility] Gastroenterology- [place] 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 Gender Identity Not on file Sexual Orientation Not on file documented as of this encounter Plan of Treatment Upcoming Encounters Date Type Department Care Team (Late st Contact Info) Description 06/27/2025 9:20 AM MUSIC JOURNALIST Office Visit [facility] Rheumatology- [place] [address] [place] [address] Juan F Poe MD [address] [place] [address] documented as of this encounter Visit Diagnoses Not on filedocumented in this encounter Care Teams Medical Surgery Nurse Relationship Specialty Start Date End Date Abraham Painting DO PCP - General Family Practice 12/21/18 documented as of this encounter
--- OUTSIDE RECORDS SUMMARY | 2025-04-10 10:21 | XMS_ITS | Encounter Summary ---
Author Organization [facility] Address [address] [place] [address] Care Team Providers Care Fire Warden Name Role Phone Baldwin Abraham Srivastava DO Primary Care Provid er Unavailable Encounter Details Date Type Department Care Team (Late st Contact Info) Description 09/27/2007 Outpatient Historical [facility] Endoscopy Mk [address] [place] [address] James Santos MD [id number] [facility] Disability Determination Services [place], [place] [address] James Clements MD [address] 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 [facility] [address] Patient: JANES SHARMA Accn No: [id number] Collected: 10/01/2007 9:46:00 AM SURGICAL PATHOLOGY FINAL REPORT Diagnosis A. Colon, transverse polyp, biopsy - adenomatous polyp(s), three fragments. Rich Mcpherson MD (Electronicall y signed by) Verified: 10/03/07 PKT/TKB Clinical Information Polyp. Specimen Source AColon, TRANSVERSE Microscopic Description Microscopic examination was performed. Gross Description Part A. Submitted in a container of formalin labelled Edith - #1 polyp, transverse colon are three cummings tissue fragments measuring up to 0.5 cm. The specimen is submitted entirely in A1. DLS/WLS INTERFACE SYSTEM 10/01/2007 9:46 AM CDT us James Clements MD PATHOLOGY/CYTOLOGY ORDERABL ES Final Result INTERFACE SYSTEM Refer to clinic/hospital department documented in this encounter Visit Diagnoses Diagnosis Benign neoplasm of colon Type II or unspecified type diabetes mellitus without mention of complication, not stated as uncontrolled Unspecified essential hypertension Tobacco use disorder documented in this encounter Care Teams Fire Warden Relationship Specialty Start Date End Date Abraham Painting DO PCP - General Family Practice 12/21/18 documented as of this encounter
--- OUTSIDE RECORDS SUMMARY | 2025-04-10 10:21 | XMS_ITS | Encounter Summary ---
Author Organization [facility] Address [address] [place] [address] Care Team Providers Care Consulting Systems Engineer Name Role Phone Abraham Painting DO Primary Care Provid er Unavailable Encounter Details Date Type Department Care Team (Late st Contact Info) Description 04/12/2004 Outpatient Historical [facility]LL[facility]MISS[facility] Jd Blackmon MD [facility] [address] [place] [address] ADMINISTRTVE ENCOUNT NOS (Primary Dx) Social History Tobacco Use Types Packs/Day Years Used Date Smoking Tobacco: Never Assessed Sex and Gender Information Value Date Recorded Sex Assigned at Not on file 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
--- OUTSIDE RECORDS SUMMARY | 2025-04-10 10:21 | XMS_ITS | Encounter Summary ---
Author Organization [facility] Address [address] [place] [address] Care Team Providers Care Compo Conveyor Operator Name Role Phone Abraham Painting DO Primary Care Provid er Unavailable Encounter Details Date Type Department Care Team (Late st Contact Info) Description 02/27/2001 Outpatient Historical [facility] Imaging Services-[place] Danielle [address] [place] [address] Social History Tobacco Use Types Packs/Day Years Used Date Smoking Tobacco: Never Assessed Sex and Gender Information Value Date Recorded Sex Assigned at Not on file 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
--- OUTSIDE RECORDS SUMMARY | 2025-04-10 10:21 | XMS_ITS | Encounter Summary ---
Author Organization [facility] Address [address] [place] [address] Care Team Providers Care Bookkeeping Manager Name Role Phone bAraham Painting DO Primary Care Provid er Unavailable Encounter Details Date Type Department Care Team (Latest Contact Info) Description 07/20/2004 Outpatient Historical [facility] [address] [place] [address] Lalo Acosta MD [address] [place] [place], [place] [address] CHEST PAIN NOS (Primary Dx) Social History Tobacco Use Types Packs/Day Years Used Date Smoking Tobacco: Never Assessed Sex and Gender Information Value Date Recorded Sex Assigned at Not on file 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
--- OUTSIDE RECORDS SUMMARY | 2025-04-10 10:21 | XMS_ITS | Encounter Summary ---
Author Organization [facility] Address [address] [place] [address] Care Team Providers Care Head Of Digital Name Role Phone Abraham Painting DO Primary Care Provid er Unavailable Encounter Details Date Type Department Care Team (Latest Contact Info) Description 09/08/1997 Outpatient Historical [facility] Dominic Montes MD NO ADDRESS ON FILE Variants of migraine, not elsewhere classified, without mention of intractable migraine without mention of status migrainosus (Primary Dx) Social History Tobacco Use Types Packs/Day Years Used Date Smoking Tobacco: Never Assessed Sex and Gender Information Value Date Recorded Sex Assigned at Not on file 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
--- OUTSIDE RECORDS SUMMARY | 2025-04-10 10:21 | XMS_ITS | Encounter Summary ---
Author Organization [facility] Address [address] [place] [address] Care Team Providers Care Buzzle Buffer Name Role Phone [place], Abraham Srivastava DO Primary Care Provid er Unavailable Encounter Details Date Type Department Care Team (Late st Contact Info) Description 07/10/[address] [facility] [address] [place] [address] Josué Campbell MD [address] [facility] [address] [place] [address] CHEST PAIN NOS (Primary Dx) Social History Tobacco Use Types Packs/Day Years Used Date Smoking Tobacco: Never Assessed Sex and Gender Information Value Date Recorded Sex Assigned at Not on file Legal Sex Male 6:12 AM TOOL AND DIE ENGINEER Gender Identity Not on file Sexual Orientation Not on file documented as of this encounter Plan of Treatment Not on file documented as of this encounter Procedures Procedure Name Priority Date/Time Associated Diagnosis Comments CARDIAC ENZYMES Routine 07/10/2004 12:55 PM TOOL AND DIE ENGINEER CBC WITH DIFFERENTIAL Routine 07/10/2004 12:55 PM TOOL AND DIE ENGINEER PTT Routine 07/10/2004 12:55 PM TOOL AND DIE ENGINEER PROTIME-INR Routine 07/10/2004 12:55 PM TOOL AND DIE ENGINEER BASIC METABOLIC PANEL Routine 07/10/2004 12:55 PM TOOL AND DIE ENGINEER documented in this encounter Results * CBC WITH DIFFERENTIAL (07/10/2004 12:55 PM TOOL AND DIE ENGINEER) WBC 6.9 4.5 - 11.0 K/ul INTERFACE [...] K/ul INTERFACE SYSTEM 07/10/2004 12:5 5 PM TOOL AND DIE ENGINEER Josué Campbell MD HEMATOLOGY ORDERABLES Connie l Result INTERFACE SYSTEM Refer to clinic/hospital department * PTT (07/10/2004 12:55 PM TOOL AND DIE ENGINEER) Pathologist [facility] PTT 28.2 24.3 - 37.5 Secs INTERFACE SYSTEM Comment:Therapeutic Range: 07/10/2004 12:5 5 PM TOOL AND DIE ENGINEER Josué Campbell MD HEMATOLOGY ORDERABLES Connie l Result INTERFACE SYSTEM Refer to clinic/hospital department * PROTIME-INR (07/10/2004 12:55 PM TOOL AND DIE ENGINEER) PROTIME 13.2 12.4 - 14.9 Secs INTERFACE SYSTEM Comment: As of 03 note change in normal range. INR 1.0 INTERFACE SYSTEM Comment: Expected Values for INR: DVT/PE Goal INR 2.5; range 2.0 - 3.0 Valve Replacement Tissue Goal INR 2.5; range 2.0 - 3.0 Mechanical Goal INR 3.0; range 2.5 - 3.5 POST-RI Goal INR 2.5; range 2.0 - 3.0 or Goal 3.0; range 2.5 - 3.5 Atrial Fibrillation Goal INR 2.5; range 2.0 - 3.0 Ischemic Stroke Goal INR 2.5; range 2.0 - 3.0 For additional information see Guidelines for Anticoagulation available from the pharmacy Brent Espinosa. 07/10/2004 12:5 5 PM TOOL AND DIE ENGINEER Josué Campbell MD HEMATOLOGY ORDERABLES Connie l Result Performing Organization Address City/[facility] Phone Number INTERFACE SYSTEM Refer to clinic/hospital department * (ABNORMAL) BASIC METABOLIC PANEL (07/10/2004 12:55 PM TOOL AND DIE ENGINEER) GLUCOSE 241(H) 70 - 110 mg/dL INTERFACE [...] mg/dL INTERFACE SYSTEM 07/10/2004 12:5 5 PM TOOL AND DIE ENGINEER Josué Campbell MD CHEMISTRY ORDERABLES Final Result INTERFACE SYSTEM Refer to clinic/hospital department * CARDIAC ENZYMES (07/10/2004 12:55 PM TOOL AND DIE ENGINEER) CKMB <0.7 0.0 - 5.5 ng/mL INTERFACE SYSTEM TROPONIN I 0.0 0.0 - 1.5 ng/mL INTERFACE SYSTEM Comment: Expected Range: Normal 0.0 - 1.5 ng/ml Borderline 1.6 - 4.4 ng/ml Positive > = 4.5 ng/ml 07/10/2004 12:5 5 PM TOOL AND DIE ENGINEER Josué Campbell MD CHEMISTRY ORDERABLES Final Result Performing Organization Address City/State/[facility] Co de Phone Number INTERFACE SYSTEM Refer to clinic/hospital department documented in this encounter Visit Diagnoses Diagnosis Chest pain, unspecified- Primary documented in this encounter Care Teams Buzzle Buffer Relationship Specialty Start Date End Date Abraham Painting DO PCP - General Family Practice 12/21/18 documented as of this encounter
--- OUTSIDE RECORDS SUMMARY | 2025-04-10 10:21 | XMS_ITS | Encounter Summary ---
Author Organization [facility] Address [address] [place] [address] Care Team Providers Care Outside Energy Sales Representatives Name Role Phone Abraham Painting DO Primary Care Provid er Unavailable Encounter Details Date Type Department Care Team (Latest Contact Info) Description 03/14/2003 Outpatient Historical [facility] Imaging Services [address] [place] [address] Lalo Acosta MD [address] [place], [place] [address] MALE GENITAL DIS NEC (Primary Dx) Social History Tobacco Use Types Packs/Day Years Used Date Smoking Tobacco: Never Assessed Sex and Gender Information Value Date Recorded Sex Assigned at Not on file 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
--- OUTSIDE RECORDS SUMMARY | 2025-04-10 10:21 | XMS_ITS | Encounter Summary ---
Author Organization [facility] Address [address] [place] [address] Care Team Providers Care Food And Beverage Service Manager Name Role Phone Abraham Painting DO Primary Care Provid er Unavailable Encounter Details Date Type Department Care Team (Late st Contact Info) Description 04/13/2004 Outpatient Historical [facility] Imaging Services-[place] Mendieta Danielle [address] [place] [address] Jd Blackmon MD [address] [facility] [address] [place] [address] RENAL & URETERAL DIS NOS (Primary Dx) Social History Tobacco Use Types Packs/Day Years Used Date Smoking Tobacco: Never Assessed Sex and Gender Information Value Date Recorded Sex Assigned at Not on file 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
--- OUTSIDE RECORDS SUMMARY | 2025-04-10 10:21 | XMS_ITS | Encounter Summary ---
Author Organization [facility] Address [address] [place] [address] Care Team Providers Care Service Control Operator Name Role Phone Abraham Painting DO Primary Care Provid er Unavailable Encounter Details Date Type Department Care Team (Latest Contact Info) Description 07/15/2004 Outpatient Historical [facility] Cardiology Ancillary Services-[facility] [address] [place] [address] Booker Azar MD [address] [address] [place] [address] PRECORDIAL PAIN (Primary Dx) Social History Tobacco Use Types Packs/Day Years Used Date Smoking Tobacco: Never Assessed Sex and Gender Information Value Date Recorded Sex Assigned at Not on file 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
--- OUTSIDE RECORDS SUMMARY | 2025-04-10 10:21 | XMS_ITS | Clinical Summary ---
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 file Not on file Not on file Last Filed Vital Signs Vital Sign Reading Time Taken Comments Blood Pressure 170/100 06/16/2020 8:50 AM LUNCHEONETTE MANAGER Pulse 80 06/16/2020 8:08 AM LUNCHEONETTE MANAGER Temperature 36.7 C (98.1 F) 05/08/2018 9:41 AM LUNCHEONETTE MANAGER Respiratory Rate 18 06/11/2018 2:12 PM LUNCHEONETTE MANAGER Oxygen Saturation 96% 06/11/2018 2:12 PM LUNCHEONETTE MANAGER Inhaled Oxygen Concentration - - Weight 140.2 kg (309 lb) 06/16/2020 8:08 AM LUNCHEONETTE MANAGER Height 190.5 cm (6' 3 ) 06/16/2020 8:08 AM LUNCHEONETTE MANAGER Body Mass Index 38.62 06/16/2020 8:08 AM LUNCHEONETTE MANAGER Plan of Treatment Health Maintenance Due Date [...] 10/01/2007, 10/01/19 08 Colorectal Cancer Screening 09/30/2017 DIABETES HBA1C Q 6 MONTHS 01/22/20202019, 10/17/2018, 05/21/2018 INFLUENZA VACCINE (#1) 2024 Procedures Procedure Name Priority Date/Time Associated Diagnosis Comments ENDOSCOPY, COLON, SCREENING Routine 10/01/2007 from Last 3 Months or Most Recently Relevant to Health Maintenance Results * ENDOSCOPY, COLON, MEDICARE SCREENING (10/01/2007) Narrative 10/01/2007 A scan was deleted from the Results section by Kristen Holt [[id number]] on 10/02/07 at 10:26 AM (File: [facility]/[id number]) James Clements MD GI PROCEDURE ORDERABLES Andrea liya from Last 3 Months or Most Recently Relevant to Health Maintenance Insurance [facility] Care Teams Registered Nurse Cardiac Telemetry Relationship Specialty Start Date End Date Abraham Painting DO PCP - General Family Practice 12/21/18
--- OUTSIDE RECORDS SUMMARY | 2025-04-10 10:21 | XMS_ITS | Encounter Summary ---
Author Organization [facility] Address [address] [place] [address] Care Team Providers Care Massage Operator Name Role Phone Abraham Painting DO Primary Care Provid er Unavailable Encounter Details Date Type Department Care Team (Late st Contact Info) Description 04/06/2004 Outpatient Historical [facility] Gen Spec Surg [address] [address] Jd Blacmkon MD [address] [place] [phone] ABDOMINAL PAIN UNSPEC SITE (Primary Dx) Social History Tobacco Use Types Packs/Day Years Used Date Smoking Tobacco: Never Assessed Sex and Gender Information Value Date Recorded Sex Assigned at Not on file Legal Sex Male 6:12 AM KILN HAND Gender Identity Not on file Sexual Orientation Not on file documented as of this encounter Plan of Treatment Not on file documented as of this encounter Visit Diagnoses Diagnosis Abdominal pain, unspecified site- Primary documented in this encounter Care Teams Massage Operator Relationship Specialty Start Date End Date Abraham Painting DO PCP - General Family Practice 12/21/18 documented as of this encounter
--- OUTSIDE RECORDS SUMMARY | 2025-04-10 10:21 | XMS_ITS | Encounter Summary ---
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
--- OUTSIDE RECORDS SUMMARY | 2025-04-10 10:21 | XMS_ITS | Encounter Summary ---
Author Organization [facility] Address [address] Attn: Epic [place] [address] Care Team Providers Care Security Support Analyst Name Role Phone Abraham Painting DO Primary Care Provid er Unavailable Encounter Details Date Type Department Care Team (Late st Contact Info) Description 02/27/2001 Outpatient Historical Lalo Acosta MD [address], [place] [address] Social History Tobacco Use Types Packs/Day Years Used Date Smoking Tobacco: Never Assessed Sex and Gender Information Value Date Recorded Sex Assigned at Not on file Legal Sex Male 6:12 AM PATIENT TRANSITION SPECIALIST Gender Identity Not on file Sexual Orientation Not on file documented as of this encounter Plan of Treatment Not on file documented as of this encounter Visit Diagnoses Not on filedocumented in this encounter Care Teams Security Support Analyst Relationship Specialty Start Date End Date Abraham Painting DO PCP - General Family Practice 12/21/18 documented as of this encounter
[2025-04-10 10:23] LABS: Alanine Aminotransferase 21 U/L (0-41); Albumin Level 3.8 g/dL (3.5-5.2); Alkaline Phosphatase 116 U/L (40-130); Anion Gap 13.2 (5-19); Aspartate Amino Transferase 16 U/L (0-40); Blood Urea Nitrogen 18 mg/dL (8-23); Calcium 9.3 mg/dL (8.5-10.5); Carbon Dioxide 25 mmol/L (22-29); Chloride 104 mmol/L (98-107); Globulin 3.3 g/dL (1.3-4.6); Glucose 253 mg/dL (65-115); Osmolality Calculated 296 mOsm/kg (285-295); Potassium 4.2 mmol/L (3.5-5.1); Sodium 138 mmol/L (136-145); Total Protein 7.1 g/dL (6.6-8.7)
[2025-04-10 11:28] VITALS: BP 198/100; PULSE 88; RESP 17; O2SAT 97
[2025-04-10 11:33] VITALS: BP 215/118; PULSE 82; RESP 14; O2SAT 95
[2025-04-10 11:44] LABS: Glucose Urine UA 3+ (Normal); Nitrate Urine Negative (Negative); Specific Gravity, Urine 1.024 (1.005-1.030)
[2025-04-10 11:46] LABS: Add Urine Microscopic? YES
[2025-04-10] MEDS: labetalol 5 mg/mL SDV 20mL 20 MG IVP (12:09)
[2025-04-10 13:19] VITALS: RESP 16; O2SAT 96
[2025-04-10 13:23] VITALS: BP 190/88; PULSE 71; RESP 16; O2SAT 96
[2025-04-10 13:59] VITALS: BP 178/83; PULSE 79; RESP 18; O2SAT 96
== END 2025-04-10 19:54 | disposition home or self-care (01) ==
PROVIDERS: Emergency Provider Physician Assistant; PCP Family Medicine
DX: N20.1 Calculus of ureter (principal); N17.9 Acute kidney failure, unspecified; Z79.82 Long term (current) use of aspirin; Z79.4 Long term (current) use of insulin; E11.22 Type 2 diabetes mellitus with diabetic chronic kidney disease; I12.9 Hypertensive chronic kidney disease with stage 1 through stage 4 chronic kidney disease, or unspecified chronic kidney disease; N18.30 Chronic kidney disease, stage 3 unspecified
CPT/HCPCS: 36415; 51798; 74176; 80053; 81001; 85025; 96374; 96375; 96376; 99285; J2270; J2405; J3490; J7030; J9999

== ENCOUNTER → 2025-04-23 13:00 | Outpatient (BNVA) | payer MEDICARE, SELFPAY | PROVIDERS: PCP Family Medicine; Visit Provider Family Medicine | DX: E87.6 Hypokalemia (principal); E11.21 Type 2 diabetes mellitus with diabetic nephropathy; N18.30 Chronic kidney disease, stage 3 unspecified; I12.9 Hypertensive chronic kidney disease with stage 1 through stage 4 chronic kidney disease, or unspecified chronic kidney disease; E11.22 Type 2 diabetes mellitus with diabetic chronic kidney disease; Z79.4 Long term (current) use of insulin; E03.9 Hypothyroidism, unspecified | CPT/HCPCS: 80048; 83036; 84439; 84443 ==